=== PATIENT | female | born 1960 | race Caucasian/White ===

== ENCOUNTER → 2016-04-10 | Outpatient (CLI) | payer OTHER ==
[~2016-04-10] MED LIST: ASPEC81 PO; ASPI81TA28 PO; CALC500C70 PO; CRG25 PO; CRG3125 PO; CZR50 PO; FENO1TAB PO; FERR325T5 PO; FLUO20CA35 PO; HYZ/10015 PO; LOSA50TA55 PO; LPT40 PO; MULT-506 PO; PRT40 PO; SIMV40TA2 PO; VITACAP26 PO
--- NOTE | 2016-04-10 15:32 | MAMMOGRAPHY REPORT ---
BILATERAL DIGITAL SCREENING MAMMOGRAM TOMOSYNTHESIS WITH CAD: 04/10/2016 CLINICAL HISTORY: Routine screening. Patient has no complaints. TECHNIQUE: Breast tomosynthesis in addition to standard 2D mammography was performed. Current study was also evaluated with a Computer Aided Detection (CAD) system. COMPARISON: Comparison is made to exams dated: 04/03/2015 mammogram, 02/03/2013 mammogram, 03/24/2014 m ammogram, 01/28/2012 mammogram, 01/15/2011 mammogram, and 01/09/2010 mammogram - [facility]. BREAST COMPOSITION: There are scattered areas of fibroglandular density in both breasts. FINDINGS: No suspicious masses, calcifications, or areas of architectural distortion are noted in e ither breast. There has been no significant interval change compared to prior exams. Scattered bilat eral benign-appearing calcifications are not significantly changed. IMPRESSION: ACR BI-RADS CATEGORY 2: BENIGN There is no mammographic evidence of malignancy. A 1 year screening mammogram is recommended. The p atient will receive written notification of the results. Approximately 10% of breast cancers are not detected with mammography. A negative mammographic repor t should not delay biopsy if a clinically suggestive mass is present. Brenda Keyes M.D. ah/:04/10/2016 15:11:12 Disaster Or Damage Control Specialist: Akilah GARCES(Yadiel)(), [facility] letter sent: Normal 1/2 BI-RADS Code: ACR BI-RADS Category 2: Benign
== END | disposition home or self-care (01) ==
LOC: C.MAMM 14:43
PROVIDERS: ATTEND Family Medicine
DX: Z12.31 Encounter for screening mammogram for malignant neoplasm of breast (principal)

== ENCOUNTER → 2016-08-04 | Outpatient (CLI) | payer OTHER ==
[~2016-08-04] MED LIST changes: +LOSA50TA36 PO; -LOSA50TA55 PO
[2016-08-04 15:08] LABS: URINE APPEARANCE CLOUDY (CLEAR); URINE BILIRUBIN NEG (NEG); URINE COLOR YELLOW; URINE NITRITE NEG (NEG); UROBILINOGEN NEG (NEG); ZZUR CULT IF INDIC CLEAN CATCH YES
[2016-08-04 15:15] LABS: MANUAL MICROSCOPIC REQUIRED? NO; REVIEW REQ? YES
[2016-08-04 15:28] LABS: URINE PROTIEN/CREAT RATIO 0.1 (0-0.2); URINE TOTAL PROTEIN 12.6 mg/dl (0-11.9)
== END | disposition home or self-care (01) ==
LOC: C.LAB1850 12:14
PROVIDERS: ATTEND Internal Medicine Nephrology
DX: N18.3 Chronic kidney disease, stage 3 (moderate) (principal)

== ENCOUNTER 2016-10-06 11:53 | Inpatient (IN) | payer OTHER ==
[~2016-10-06] VITALS: Ht 157.5 cm; Wt 55.7 kg
[~2016-10-06 11:53] MED LIST changes: -ASPI81TA28 PO; -CRG3125 PO; -FENO1TAB PO; -FERR325T5 PO; -HYZ/10015 PO; -LOSA50TA36 PO; -LPT40 PO
[2016-10-06] MEDS ORDERED: CZR50 PO (12:16)
[2016-10-06] MEDS ORDERED: ASPI81TA28 PO (12:16)
[2016-10-06] MEDS ORDERED: SODIUM CHLORIDE 0.9% 1000ML 1,000 ML IV STA (12:45)
[2016-10-06] MEDS ORDERED: MECLIZINE HCL 25 MG TAB PO STA (12:45)
[2016-10-06] MEDS ORDERED: ONDANSETRON INJ 2 MG/ML 2 ML VIAL IV STA (12:45)
--- NOTE | 2016-10-06 12:48 | EMERGENCY ROOM VISIT NOTE ---
History Report prepared by [place]: Sharath Morris Under the Supervision of: Dr. Manjeet Santoro M.D. First contact with patient: 12:18 Chief Complaint: SHORTNESS OF BREATH Stated Complaint: SOB,PT HAS HAD 2 HEART ATTACKS Nursing Triage Summary: c/o SOB and n/v 2x in the last 24 hrs and c/o confusion no c/o pain pt is alert and oriented x4 History of Present Illness The patient is a 56 year female who presents to the Emergency Room with complaints of persistent dizziness upon standing up that started 2 weeks ago. She was recently admitted here for pneumonia, but is finished with her rounds of antibiotics. The patient states that for the past 2 weeks, she has not been able to "do anything" due to her dizziness and disorientation only upon standing up. She says that she feels fine when she lays down. The patient states that after standing up for a while, the symptoms go away. Per the patient 's , the patient has only been able to walk from her bed to the living room because the patient has to lie down after standing up. The patient adds that she vomited twice in the past 24 hours, but she says this is because she ate pizza which did not agree with her. The patient states that she has no history of dizziness issues. She notes that moving her head currently does not bring the dizziness back. She says that she has been drinking lots of water. She denies any abdominal pain. Source of History: patient, spouse/significant other Onset: 2 weeks ago Position: other (global - dizziness) Quality: other (only upon standing up initially) Timing: other (persistent) Modifying Factors (Worsening): movement Modifying Factors (Relieving): rest Associated Symptoms: No abdominal pain Note: Associated symptoms: Disorientation upon standing up. Review of Systems See HPI for pertinent positives & negatives. A total of 10 systems reviewed and were otherwise negative. Past Medical & Surgical Medical Problems: (1) Dehydration (2) HTN (hypertension) (3) Orthostasis (4) Rigors Surgical Problems: (1) Stented coronary artery Family History Diabetes mellitus FHx: cancer Hypertension Social History Smoking Status: Never Smoker Alcohol Use: occasionally Drug Use: none Marital Status: Current/Historical Medications Scheduled Aspirin (Aspirin Ec), 81 MG PO DAILY Atorvastatin (Atorvastatin Calcium), 40 MG PO DAILY Calcium/Vitamin D ([place] 500 Plus D), 1 TAB PO DAILY Carvedilol (Carvedilol), 25 MG PO BID Fenofibrate (Tricor), 1 TAB PO DAILY Ferrous Sulfate (Ferrous Sulfate), 325 MG PO TIDM Hctz/Losartan (Hyzaar 25MG/100MG), 1 TAB PO DAILY Multivitamin (Multivitamin), 1 TAB PO DAILY Pantoprazole (Pantoprazole Sodium), 40 MG PO BID Vitamins C & E (Vitamin C), 1 CAP PO DAILY Allergies Coded Allergies: No Known Allergies (Verified , NONE, 04/26/13) Physical Exam Vital Signs Date Time Temp Pulse Resp B/P (MAP) Pulse Ox O2 Delivery O2 Flow Rate FiO2 10/06/16 14:53 85 20 115/67 100 Room Air 10/06/16 13:28 65 20 126/43 100 Room Air 10/06/16 12:57 71 20 102/42 99 Room Air 69 93/41 77 71/39 10/06/16 12:50 99 Room Air 10/06/16 12:25 73 10/06/16 12:24 99 Room Air 10/06/16 12:20 99 Room Air 10/06/16 11:56 36.5 102 22 102/54 100 Room Air Physical Exam GENERAL: Patient is a healthy-appearing well-nourished 56 year old female. HEAD: Normocephalic atraumatic EYES: Ocular movements intact pupils equal and react to light OROPHARYNX mucous membranes are moist no exudates present no erythema or edema present NECK: Supple no nuchal rigidity CHEST: Good equal expansion LUNGS: Clear and equal to auscultation CARDIAC: Normal S1 and S2 ABDOMEN: Soft nontender no guarding BACK: No CVA tenderness EXTREMITIES: No pain upon palpation normal muscle strength in all groups no clubbing cyanosis or edema NEURO: Patient is following commands and answering questions appropriately. Alert and oriented x3 Cranial Nerves 2-12 grossly intact Medical Decision & Procedures ER Provider Diagnostic Interpretation: Radiology results as stated below per my review and radiologist interpretation: CT OF THE HEAD WITHOUT CONTRAST CLINICAL HISTORY: Dizziness. COMPARISON STUDY: No previous studies for comparison. CT DOSE: 460.70 mGy.cm TECHNIQUE: Helical axial images of the head were obtained without IV contrast. Automated exposure control was utilized for the study. A dose lowering technique was utilized adhering to the principles of ALARA. FINDINGS: No acute intracranial hemorrhage, midline shift or mass effect is present. Ventricular system is normal. Basilar cisterns are patent. There are no extra-axial collections. Zamorano-white differentiation is maintained. There are no CT findings to suggest acute dural sinus thrombosis or acute territorial infarct. There are no significant calvarial abnormalities. Visualized portions of the sinuses and left mastoid air cells are clear. There may be a small amount of fluid within the right mastoid air cells. IMPRESSION: No acute intracranial findings. Electronically signed by: Omid Ellsion M.D. 10/06/2016 1:50 PM Dictated Date/Time: 10/06/2016 1:47 PM CHEST ONE VIEW PORTABLE HISTORY: Pt c/o dizziness COMPARISON: Chest 10/11/2014. FINDINGS: The lungs are clear. Cardiac silhouette is normal in size. No pleural effusions. No pneumothorax. IMPRESSION: No acute process. Electronically signed by: Albert Eubanks M.D. 10/06/2016 1:36 PM Dictated Date/Time: 10/06/2016 1:29 PM Laboratory Results 10/06/16 13:09 Red Blood Count 2.84, Mean Corpuscular Volume 100.7, Mean Corpuscular Hemoglobin 35.2, Mean Corpuscular Hemoglobin Concent 35.0, Mean Platelet Volume 9.1, Neutrophils (%) (Auto) 66.2, Lymphocytes (%) (Auto) 26.5, Monocytes (%) ( Auto) 6.2, Eosinophils (%) (Auto) 0.6, Basophils (%) (Auto) 0.1, Neutrophils # ( Auto) 7.53, Lymphocytes # (Auto) 3.02, Monocytes # (Auto) 0.71, Eosinophils # ( Auto) 0.07, Basophils # (Auto) 0.01 10/06/16 13:09 Test 10/06/16 12:55 10/06/16 13:09 10/06/16 13:21 10/06/16 14:09 Bedside Glucose 122 mg/dl (70-90) White Blood Count 11.38 K/uL (4.8-10.8) Red Blood Count 2.84 M/uL (4.2-5.4) Hemoglobin 10.0 g/dL (12.0-16.0) Hematocrit 28.6 % (37-47) Mean Corpuscular Volume 100.7 fL (80-100) Mean Corpuscular Hemoglobin 35.2 pg (25-34) Mean Corpuscular Hemoglobin Concent 35.0 g/dl (32-36) Platelet Count 373 K/uL (130-400) Mean Platelet Volume 9.1 fL (7.4-10.4) Neutrophils (%) (Auto) 66.2 % Lymphocytes (%) (Auto) 26.5 % Monocytes (%) (Auto) 6.2 % Eosinophils (%) (Auto) 0.6 % Basophils (%) (Auto) 0.1 % Neutrophils # (Auto) 7.53 K/uL (1.4-6.5) Lymphocytes # (Auto) 3.02 K/uL (1.2-3.4) Monocytes # (Auto) 0.71 K/uL (0.11-0.59) Eosinophils # (Auto) 0.07 K/uL (0-0.5) Basophils # (Auto) 0.01 K/uL (0-0.2) RDW Standard Deviation 43.6 fL (36.4-46.3) RDW Coefficient of Variation 11.9 % (11.5-14.5) Immature Granulocyte % (Auto) 0.4 % Immature Granulocyte # (Auto) 0.04 K/uL (0.00-0.02) Anion Gap 11.0 mmol/L (3-11) Est Creatinine Clear Calc Drug Dose 20.5 ml/min Estimated GFR () 25.1 Estimated GFR (Non- 21.7 BUN/Creatinine Ratio 22.2 (10-20) Calcium Level 9.1 mg/dl (8.5-10.1) Total Bilirubin 0.5 mg/dl (0.2-1) Direct Bilirubin 0.2 mg/dl (0-0.2) Aspartate Amino Transf (AST/SGOT) 30 U/L (15-37) Alanine Aminotransferase (ALT/SGPT) 29 U/L (12-78) Alkaline Phosphatase 49 U/L (45-117) Total Creatine Kinase 105 U/L (26-192) Creatine Kinase MB 2.2 ng/ml (0.5-3.6) Creatine Kinase MB Ratio 2.1 (0-3.0) Troponin I 0.027 ng/ml (0-0.045) Total Protein 6.3 gm/dl (6.4-8.2) Albumin 3.2 gm/dl (3.4-5.0) Thyroid Stimulating Hormone (TSH) 0.877 uIu/ml (0.300-4.500) Urine WBC (Auto) >30 /hpf (0-5) Urine RBC (Auto) 0-4 /hpf (0-4) Urine Hyaline Casts (Auto) 1-5 /lpf (0-5) Urine Epithelial Cells (Auto) >30 /lpf (0-5) Urine Bacteria (Auto) 4+ (NEG) Labs reviewed by ED physician. Medications Administered Medications (Trade) Dose Ordered Sig/Denise Route Start Time Stop Time Status Last Admin Dose Admin Sodium Chloride 1,000 ml @ 999 mls/hr Q1H1M STAT IV 10/06/16 12:45 10/06/16 13:45 DC 10/06/16 13:15 999 MLS/HR Ondansetron HCl (Zofran Inj) 4 mg NOW STAT IV 10/06/16 12:45 10/06/16 12:48 DC 10/06/16 13:18 4 MG Meclizine HCl (Antivert Tab) 25 mg NOW STAT PO 10/06/16 12:45 10/06/16 12:48 DC 10/06/16 13:18 25 MG Potassium Chloride (Klor-Con M10) 80 meq NOW STAT PO 10/06/16 13:58 10/06/16 14:00 DC 10/06/16 14:07 8 MEQ Sodium Chloride 500 ml @ 999 mls/hr Q31M STAT IV 10/06/16 13:58 10/06/16 14:28 DC 10/06/16 14:08 999 MLS/HR Ceftriaxone Sodium (Rocephin Inj) 1 gm NOW STAT IV 10/06/16 14:09 10/06/16 14:10 DC 10/06/16 14:25 1 GM Sodium Chloride 150 ml @ 999 mls/hr Q10M STAT IV 10/06/16 14:18 10/06/16 14:27 DC 10/06/16 14:18 999 MLS/HR ECG Indication: other (dizzy) Rate (beats per minute): 67 Rhythm: normal sinus Findings: no acute ischemic change, no ectopy ED Course 1241: Past medical records reviewed. The patient was evaluated in room C6. A complete history and physical examination was performed. 1245: Ordered Antivert Tab 25 mg PO, Zofran Inj 4 mg IV, NSS 1000 ml @ 999 mls/ hr IV. 1358: Ordered NSS 500 ml @ 999 mls/hr IV, Klor-Con M10 80 meq PO. 1409: Ordered Rocephin Inj 1 gm IV. 1417: Upon reexamination the patient is resting comfortably. I discussed results and treatment plan with the patient. she verbalizes agreement and understanding. The patient will be evaluated for further management. 1418: Ordered NSS 150 ml @ 999 mls/hr IV. 1420: I discussed the patient with Dr. Jocelynn DUENAS haul truck driver - he will evaluate the patient for further treatment. Medical Decision Differential diagnosis: Etiologies such as benign positional vertigo, dehydration, hypovolemia, anemia, tumor, infection, hypoglycemia, electrolyte abnormalities, cardiac sources, intracerebral event, toxicologic, neurologic, as well as others were entertained. This is a 56-year-old feel who presents emergency department hypotensive and tachycardic. The patient also has an elevation in her white blood count cell count and her creatinine is also grossly elevated. Based on this finding the patient was given a normal saline bolus 30 mL's per kilogram. She was also started on Rocephin for what appears to be urinary tract infection. I did discuss the case with the hospitalist service who agreed to admit the patient. Patient was in agreement with the treatment plan. Medication Reconcilliation Current Medication List: was personally reviewed by me Blood Pressure Screening Patient's blood pressure: Low blood pressure Referred to hospitalist. Consults Time Called: 1418 Consulting Physician: Dr.Siuta Radha DUENAS haul truck driver Returned Call: 1420 I discussed the patient with Dr. Jocelynn DUENAS haul truck driver - he will evaluate the patient for further treatment. Impression Primary Impression: Hypotension Additional Impressions: UTI (urinary tract infection) Sepsis Scribe Attestation The scribe's documentation has been prepared under my direction and personally reviewed by me in its entirety. I confirm that the note above accurately reflects all work, treatment, procedures, and medical decision making performed by me. Departure Information Dispostion Being Evaluated By Hospitalist Referrals Luciano Marx M.D. (PCP) Patient Instructions My [facility] Problem Qualifiers Primary Impression: Hypotension Hypotension type: unspecified hypotension type Qualified Codes: I95.9 - Hypotension, unspecified Additional Impressions: UTI (urinary tract infection) Urinary tract infection type: acute cystitis Hematuria presence: without hematuria Qualified Codes: N30.00 - Acute cystitis without hematuria Sepsis Sepsis type: sepsis due to unspecified organism Qualified Codes: A41.9 - Sepsis, unspecified organism
[2016-10-06 13:27] LABS: BASO % 0.1 %; BASO ABS # 0.01 K/uL (0-0.2); COMPLETE YES; EOS % 0.6 %; HEMATOCRIT 28.6 % (37-47); IG% 0.4 %; LYMPH % 26.5 %; LYMPH ABS # 3.02 K/uL (1.2-3.4); MEAN CELL VOLUME 100.7 fL (80-100); MEAN CORPUSCULAR HEMOGLOBIN 35.2 pg (25-34); MEAN PLATELET VOLUME 9.1 fL (7.4-10.4); MONO % 6.2 %; NEUT % 66.2 %; PLATELET COUNT 373 K/uL (130-400); RED BLOOD COUNT 2.84 M/uL (4.2-5.4); WHITE BLOOD COUNT 11.38 K/uL (4.8-10.8)
--- NOTE | 2016-10-06 13:37 | DIAGNOSTIC IMAGING REPORT ---
CHEST ONE VIEW PORTABLE HISTORY: Pt c/o dizziness COMPARISON: Chest 10/11/2014. FINDINGS: The lungs are clear. Cardiac silhouette is normal in size. No pleural effusions. No pneumothorax. IMPRESSION: No acute process. Electronically signed by: Albert Eubanks M.D. 10/06/2016 1:36 PM Dictated Date/Time: 10/06/2016 1:29 PM
[2016-10-06 13:45] LABS: BUN/CREATININE RATIO 22.2 (10-20); CALCIUM 9.1 mg/dl (8.5-10.1); CREATININE 2.4 mg/dl (0.60-1.20)
[2016-10-06 13:47] LABS: URINE APPEARANCE CLOUDY (CLEAR); URINE BILIRUBIN NEG (NEG); URINE COLOR DK YELLOW; URINE EPITHELIAL CELL AUTO >30 /lpf (0-5); URINE NITRITE NEG (NEG); UROBILINOGEN NEG (NEG)
--- NOTE | 2016-10-06 13:51 | DIAGNOSTIC IMAGING REPORT ---
CT OF THE HEAD WITHOUT CONTRAST CLINICAL HISTORY: Dizziness. COMPARISON STUDY: No previous studies for comparison. CT DOSE: 460.70 mGy.cm TECHNIQUE: Helical axial images of the head were obtained without IV contrast. Automated exposure control was utilized for the study. A dose lowering technique was utilized adhering to the principles of ALARA. FINDINGS: No acute intracranial hemorrhage, midline shift or mass effect is present. Ventricular system is normal. Basilar cisterns are patent. There are no extra-axial collections. Zamorano-white differentiation is maintained. There are no CT findings to suggest acute dural sinus thrombosis or acute territorial infarct. There are no significant calvarial abnormalities. Visualized portions of the sinuses and left mastoid air cells are clear. There may be a small amount of fluid within the right mastoid air cells. IMPRESSION: No acute intracranial findings. Electronically signed by: Omid Ellison M.D. 10/06/2016 1:50 PM Dictated Date/Time: 10/06/2016 1:47 PM
[2016-10-06 13:56] LABS: CKMB/CK RATIO 2.1 (0-3.0); THYROID STIMULATING HORMONE 0.877 uIu/ml (0.300-4.500)
[2016-10-06] MEDS ORDERED: SODIUM CHLORIDE 0.9% 500ML 500 ML IV STA (13:58)
[2016-10-06] MEDS ORDERED: POTASSIUM CHLORIDE 10 MEQ TABCR PO STA (13:58)
[2016-10-06 14:02] LABS: MANUAL MICROSCOPIC REQUIRED? NO; REVIEW REQ? NO
[2016-10-06] MEDS ORDERED: CEFTRIAXONE SOD INJ 1 GM ADDVIAL IV STA (14:09)
[2016-10-06] MEDS ORDERED: SODIUM CHLORIDE 0.9% 150ML 150 ML IV STA (14:18)
[2016-10-06] MEDS ORDERED: LPT40 PO (15:05)
[2016-10-06] MEDS ORDERED: FERR325T5 PO (15:05)
[2016-10-06] MEDS ORDERED: FENO1TAB PO (15:05)
[2016-10-06] MEDS ORDERED: HYZ/10015 PO (15:05)
[2016-10-06] MEDS ORDERED: ALUMINUM/MAGNESIUM/SIMETH (MAALOX MAX) 30 ML UDC PO PRN (15:15)
[2016-10-06] MEDS ORDERED: ACETAMINOPHEN 325 MG TAB PO PRN (15:15)
[2016-10-06] MEDS ORDERED: MAGNESIUM HYDROXIDE SUSP 30 ML UDC PO PRN (15:15)
[2016-10-06] MEDS ORDERED: POLYETHYLENE (MIRALAX) 17 GM PACK PO PRN (15:15)
[2016-10-06] MEDS ORDERED: ONDANSETRON INJ 2 MG/ML 2 ML VIAL IV PRN (15:15)
[2016-10-06] MEDS ORDERED: IV FLUIDS COMPLETED PRN (16:00)
--- NOTE | 2016-10-06 17:22 | History and Physical ---
History & Physical Date & Time of Service: Oct 06, 2016 at 16:58 Chief Complaint: Sob,Pt Has Had 2 Heart Attacks Primary Care Physician: Luciano Marx M.D. History of Present Illness Source: patient, spouse ( at bedside), clinic records, hospital records This is a 56 y/o female with a history of CAD with h/o WV x 3 s/p stents, HTN, HLD, CKD stage III, anemia of chronic disease, depression, IBS and OCD who presented to the ED on 10/06 with persistent dizziness with standing x 2 weeks. The patient states that her symptoms resolve if she remains standing, or if she sits back down. She denies any changes in head position that bring on symptoms. She states that she does have some associated shortness of breath with the dizziness, which also resolves upon sitting back down. The patient did have 2 episodes of nausea and vomiting about 2-3 days ago, but she states that this was due to eating some food that did not agree with her. She felt better immediately afterward and this has not happened again since. The patient denies fevers or chills at home, but complains of chills in the ED. She denies any urinary symptoms. The patient denies any recent changes in her medications. The patient denies fevers, sweats, chest pain, palpitations, claudication, cough, wheezing, nausea, vomiting, abdominal pain, dysuria, hematuria, urinary retention, paralysis, weakness, numbness and tingling. Past Medical/Surgical History Medical Problems: (1) HTN (hypertension) Status: Chronic HLD CAD H/o WV x 3, s/p stents CKD stage III Anemia Depression IBS OCD Family History Diabetes mellitus FHx: cancer (breast) Hypertension Social History Smoking Status: Never Smoker Smokeless Tobacco Use: No Alcohol Use: none Drug Use: none Marital Status: Housing status: lives with significant other Occupational Status: retired Immunizations History of Influenza Vaccine: No History of Tetanus Vaccine?: Yes History of Pneumococcal: No History of Hepatitis B Vaccine: No Multi-Drug Resistant Organisms History of MDRO: No Allergies Coded Allergies: No Known Allergies (Verified , NONE, 04/26/13) Home Medications Scheduled Aspirin (Aspirin Ec), 81 MG PO DAILY Atorvastatin (Atorvastatin Calcium), 40 MG PO DAILY Calcium/Vitamin D ([place] 500 Plus D), 1 TAB PO DAILY Carvedilol (Carvedilol), 25 MG PO BID Fenofibrate (Tricor), 1 TAB PO DAILY Ferrous Sulfate (Ferrous Sulfate), 325 MG PO TIDM Hctz/Losartan (Hyzaar 25MG/100MG), 1 TAB PO DAILY Multivitamin (Multivitamin), 1 TAB PO DAILY Pantoprazole (Pantoprazole Sodium), 40 MG PO BID Vitamins C & E (Vitamin C), 1 CAP PO DAILY Review of Systems Constitutional: + chills, No fever, No sweats, No weakness, No fatigue Eyes: No worsening of vision, No eye pain, No diplopia ENT: No hearing loss, No sore throat, No trouble swallowing Respiratory: + shortness of breath, No cough, No wheezing Cardiovascular: No chest pain, No claudication, No palpitations Abdomen: No pain, No nausea, No vomiting Musculoskeletal: No joint pain, No muscle pain, No calf pain Genitourinary - Female: No dysuria, No urinary retention, No hematuria Neurologic: No paralysis, No weakness, No numbness/tingling Integumentary: No rash, No itch, No color change Physical Exam Vital Signs Date Time Temp Pulse Resp B/P (MAP) Pulse Ox O2 Delivery O2 Flow Rate FiO2 10/06/16 14:53 85 20 115/67 100 Room Air 10/06/16 13:28 65 20 126/43 100 Room Air 10/06/16 12:57 71 20 102/42 99 Room Air 69 93/41 77 71/39 10/06/16 12:50 99 Room Air 10/06/16 12:25 73 10/06/16 12:24 99 Room Air 10/06/16 12:20 99 Room Air 10/06/16 11:56 36.5 102 22 102/54 100 Room Air General appearance: +Rigors. Well-developed, well-nourished Head: Normocephalic, atraumatic Eyes: Normal inspection, PERRL, EOMI ENT: Normal ENT inspection, hearing grossly normal, pharynx normal Neck: Supple, no JVD, trachea midline Respiratory/Chest: Lungs clear to auscultation, normal breath sounds, no respiratory distress Cardiovascular: Regular rate & rhythm, no gallop, no murmur Abdomen/GI: Normal bowel sounds, non-tender, soft Extremities/Musculoskeletal: Normal inspection, no calf tenderness, no pedal edema Neurological/Psych: Alert, normal mood/affect, oriented x 3 Skin: Normal color, warm/dry, no rash Diagnostics Laboratory Results Results Past 24 Hours Test 10/06/16 12:55 10/06/16 13:09 10/06/16 13:21 10/06/16 14:09 Range/Units Bedside Glucose 122 70-90 mg/dl White Blood Count 11.38 4.8-10.8 K/uL Red Blood Count 2.84 4.2-5.4 M/uL Hemoglobin 10.0 12.0-16.0 g/dL Hematocrit 28.6 37-47 % Mean Corpuscular Volume 100.7 80-100 fL Mean Corpuscular Hemoglobin 35.2 25-34 pg Mean Corpuscular Hemoglobin Concent 35.0 32-36 g/dl Platelet Count 373 130-400 K/uL Mean Platelet Volume 9.1 7.4-10.4 fL Neutrophils (%) (Auto) 66.2 % Lymphocytes (%) (Auto) 26.5 % Monocytes (%) (Auto) 6.2 % Eosinophils (%) (Auto) 0.6 % Basophils (%) (Auto) 0.1 % Neutrophils # (Auto) 7.53 1.4-6.5 K/uL Lymphocytes # (Auto) 3.02 1.2-3.4 K/uL Monocytes # (Auto) 0.71 0.11-0.59 K/uL Eosinophils # (Auto) 0.07 0-0.5 K/uL Basophils # (Auto) 0.01 0-0.2 K/uL RDW Standard Deviation 43.6 36.4-46.3 fL RDW Coefficient of Variation 11.9 11.5-14.5 % Immature Granulocyte % (Auto) 0.4 % Immature Granulocyte # (Auto) 0.04 0.00-0.02 K/uL Sodium Level 140 136-145 mmol/L Potassium Level 3.0 3.5-5.1 mmol/L Chloride Level 106 98-107 mmol/L Carbon Dioxide Level 23 21-32 mmol/L Anion Gap 11.0 3-11 mmol/L Blood Urea Nitrogen 53 7-18 mg/dl Creatinine 2.40 0.60-1.20 mg/dl Est Creatinine Clear Calc Drug Dose 20.5 ml/min Estimated GFR () 25.1 Estimated GFR (Non- 21.7 BUN/Creatinine Ratio 22.2 10-20 Random Glucose 120 70-99 mg/dl Calcium Level 9.1 8.5-10.1 mg/dl Magnesium Level 2.1 1.8-2.4 mg/dl Total Bilirubin 0.5 0.2-1 mg/dl Direct Bilirubin 0.2 0-0.2 mg/dl Aspartate Amino Transf (AST/SGOT) 30 15-37 U/L Alanine Aminotransferase (ALT/SGPT) 29 12-78 U/L Alkaline Phosphatase 49 45-117 U/L Total Creatine Kinase 105 26-192 U/L Creatine Kinase MB 2.2 0.5-3.6 ng/ml Creatine Kinase MB Ratio 2.1 0-3.0 Troponin I 0.027 0-0.045 ng/ml Total Protein 6.3 6.4-8.2 gm/dl Albumin 3.2 3.4-5.0 gm/dl Thyroid Stimulating Hormone (TSH) 0.877 0.300-4.500 uIu/ml Urine Color DK YELLOW Urine Appearance CLOUDY CLEAR Urine pH 5.0 4.5-7.5 Urine Specific [place] 1.020 1.000-1.030 Urine Protein NEG NEG Urine Glucose (UA) NEG NEG Urine Ketones TRACE NEG Urine Occult Blood TRACE NEG Urine Nitrite NEG NEG Urine Bilirubin NEG NEG Urine Urobilinogen NEG NEG Urine Leukocyte Esterase LARGE NEG Urine WBC (Auto) >30 0-5 /hpf Urine RBC (Auto) 0-4 0-4 /hpf Urine Hyaline Casts (Auto) 1-5 0-5 /lpf Urine Epithelial Cells (Auto) >30 0-5 /lpf Urine Bacteria (Auto) 4+ NEG Microbiology Results 10/06/16 Blood Culture, Received Pending 10/06/16 Blood Culture, Received Pending Diagnostic Radiology Reviewed the following studies and agree with interpretation as follows: Patient Name: DEXTER ABARCA Unit Number: [id number] Dictated: 10/06/161346 Transcribed: 10/06/161346 JA Printed Date/Time: [~ rep prt dt]/[~ rep prt tm] [~ rep ct labl] - [~ rep ct ivnm] [facility] [address] Dictated: 10/06/16 1347 Transcribed: 10/06/16 1347 JA Printed Date/Time: [~ rep prt dt]/[~ rep prt tm] [~ rep ct labl] - [~ rep ct ivnm] Patient: DEXTER ABARCA Address1: [address] [place] [address] Med Rec: [id number] Address2: Acct ID: [id number] [facility] Zip: [place] [address] Date: 1960 Sex: F Room/Bed: Ref Phy: Luciano Marx M.D. SC: ELVIN Att Phy: Report #: [id number] Bibiana Phy: Luciano Marx M.D. Test: HWO Admit Phy: Manager Valuation: LUIS Interpreting Phy: Omid Ellison MD Diagnosis: SOB,PT HAS HAD 2 HEART ATTACKS Ordering Phy: Manjeet Santoro MD Service Date: 10/06/16 Admit Date: 10/06/16 MNE: PWRSCRIBE CONF: DICTATED BY: Omid Ellison MD]] CC: Manjeet Santoro MD Qiu, Juan, M.D. Endcc: [~ rep ct add3]] CT OF THE HEAD WITHOUT CONTRAST CLINICAL HISTORY: Dizziness. COMPARISON STUDY: No previous studies for comparison. CT DOSE: 460.70 mGy.cm TECHNIQUE: Helical axial images of the head were obtained without IV contrast. Automated exposure control was utilized for the study. A dose lowering technique was utilized adhering to the principles of ALARA. FINDINGS: No acute intracranial hemorrhage, midline shift or mass effect is present. Ventricular system is normal. Basilar cisterns are patent. There are no extra-axial collections. Zamorano-white differentiation is maintained. There are no CT findings to suggest acute dural sinus thrombosis or acute territorial infarct. There are no significant calvarial abnormalities. Visualized portions of the sinuses and left mastoid air cells are clear. There may be a small amount of fluid within the right mastoid air cells. IMPRESSION: No acute intracranial findings. Electronically signed by: Omid Ellison M.D. 10/06/2016 1:50 PM Dictated Date/Time: 10/06/2016 1:47 PM The status of this report is Signed. Draft = Not yet reviewed or approved by Radiologist. Signed = Reviewed and approved by Radiologist. <AttendingPhy></AttendingPhy> <FamilyPhy>Luciano Marx M.D.</FamilyPhy> <PrimaryPhy >Luciano Marx M.D.</PrimaryPhy> <UnitNumber>[id number]</UnitNumber> <VisitNumber> [id number]</VisitNumber> <PatientName>ANTHONY ABARCAAIDAGerard Means</PatientName> < DateOfBirth>1960</DateOfBirth> <Location>C.EDC</Location> <ServiceDate>09/15</ServiceDate> <MNE>ESINDI</MNE> <OrderingPhy>Manjeet Santoro MD</ OrderingPhy> <OrderingPhyMNE>f rep ord dr giang</OrderingPhyMNE> <DictatingPhyMNE> f rep dict dr giang</DictatingPhyMNE> <CCListMNE>f rep ct mne</CCListMNE> < AdmittingPhyMNE>f pt admit dr giang</AdmittingPhyMNE> <AttendingPhyMNE>f pt attend dr giang</AttendingPhyMNE> <ConsultingPhyMNE>f pt consult dr giang</ConsultingPhyMNE> <FamilyPhyMNE>f pt fam dr giang</FamilyPhyMNE> <OtherPhyMNE>f pt other dr giang</OtherPhyMNE> < PrimaryPhyMNE>f pt prim care dr giang</PrimaryPhyMNE> <ReferringPhyMNE>f pt referring dr giang</ReferringPhyMNE> Patient Name: DEXTER ABARCA Unit Number: [id number] Dictated: 10/06/161328 Transcribed: 10/06/161328 PAJ Printed Date/Time: [~ rep prt dt]/[~ rep prt tm] [~ rep ct labl] - [~ rep ct ivnm] [facility] [place] [address] Dictated: 10/06/161328 Transcribed: 10/06/161328 PAJ Printed Date/Time: [~ rep prt dt]/[~ rep prt tm] [~ rep ct labl] - [~ rep ct ivnm] Patient: DEXTER ABARCA Address1: [address] [place] [address] [facility] Rec: [id number] Address2: Acct ID: [id number] [facility] Zip: [place] [address] Date: 1960 Sex: F Room/Bed: Ref Phy: Luciano Marx M.D. SC: ELVIN Att Phy: Report #: [id number] Bibiana Phy: Luciano Marx M.D. Test: CXR1P Admit Phy: Manager Valuation: ANDEER Interpreting Phy: Albert Eubanks MD Diagnosis: SOB,PT HAS HAD 2 HEART ATTACKS Ordering Phy: Manjeet Santoro MD Service Date: 10/06/16 Admit Date: 10/06/16 MNE: PWRSCRIBE CONF: DICTATED BY: Albert Eubanks M.D.]] CC: Manjeet Santoro MD Qiu, Juan, M.D. Endcc: [~ rep ct add3]] CHEST ONE VIEW PORTABLE HISTORY: Pt c/o dizziness COMPARISON: Chest 10/11/2014. FINDINGS: The lungs are clear. Cardiac silhouette is normal in size. No pleural effusions. No pneumothorax. IMPRESSION: No acute process. Electronically signed by: Albert Eubanks M.D. 10/06/2016 1:36 PM Dictated Date/Time: 10/06/2016 1:29 PM The status of this report is Signed. Draft = Not yet reviewed or approved by Radiologist. Signed = Reviewed and approved by Radiologist. <AttendingPhy></AttendingPhy> <FamilyPhy>Luciano Marx M.D.</FamilyPhy> <PrimaryPhy >Luciano Marx M.D.</PrimaryPhy> <UnitNumber>[id number]</UnitNumber> <VisitNumber> [id number]</VisitNumber> <PatientName>DEXTER ABARCA</PatientName> < DateOfBirth>1960</DateOfBirth> <Location>CJENNY</Location> <ServiceDate>09/15</ServiceDate> <MNE>ESINDI</MNE> <OrderingPhy>Manjeet Santoro MD</ OrderingPhy> <OrderingPhyMNE>f rep ord dr giang</OrderingPhyMNE> <DictatingPhyMNE> f rep dict dr giang</DictatingPhyMNE> <CCListMNE>f rep ct mne</CCListMNE> < AdmittingPhyMNE>f pt admit dr giang</AdmittingPhyMNE> <AttendingPhyMNE>f pt attend dr giang</AttendingPhyMNE> <ConsultingPhyMNE>f pt consult dr giang</ConsultingPhyMNE> <FamilyPhyMNE>f pt fam dr giang</FamilyPhyMNE> <OtherPhyMNE>f pt other dr giang</OtherPhyMNE> < PrimaryPhyMNE>f pt prim care dr giang</PrimaryPhyMNE> <ReferringPhyMNE>f pt referring dr giang</ReferringPhyMNE> EKG Reviewed EKG and agree with interpretation as follows: 67 bpm, NSR, inverted T waves V1 and V2 Impression Assessment and Plan 56 y/o female with a history of CAD with h/o WV x 3 s/p stents, HTN, HLD, CKD stage III, anemia of chronic disease, depression, IBS and OCD who presented to the ED on 10/06 with persistent dizziness with standing x 2 weeks. Patient was hypotensive and slightly tachycardic on arrival to the ED. Orthostatics are positive. Patient's blood pressure was 102/42 while supine and dropped to 71/ 39 upon standing. Patient received over a 1.5L of NSS boluses, and blood pressure did improve. Head CT and chest x-ray are negative for acute disease. EKG shows NSR and inverted T waves in V1 and V2. Troponin negative. WBC 11.38. Creatinine elevated above baseline at 2.4. Potassium 3.0. Patient was given 80 mEq of potassium chloride in the ED. UA positive for bacteria but also with high epithelial cell count. Patient given one dose of Rocephin empirically in ED. Patient was also given a dose of Antivert. Orthostatic hypotension, dizziness -Admit to telemetry -Hold losartan and hydrochlorothiazide -IVF with NSS + 40 mEq KCl at 150 cc/hr -EKG q am and prn with chest pain URBAN on CKD stage III--baseline creatinine 1.0-1.2 -Creatinine 2.4 on admission -IVF as above -Avoid nephrotoxic agents, continue to monitor ?UTI -Repeat UA pending, culture if indicated -Blood cultures pending Hypokalemia -Potassium 3.0 on admission. Received 80 mEq KCl PO in ED -Magnesium WNL at 2.1 -Continue to monitor CAD, h/o WV x 3, s/p stents, HTN, HLD--stable after IVF -Continue ASA, Coreg 25 mg PO BID, atorvastatin 40 mg PO qd, and fenofibrate 160 mg PO qd -Hold Coreg if SBP less than 100 or HR less than 60 -Losartan/HCTZ held due to orthostasis and URBAN Anemia of chronic disease--stable -Baseline hemoglobin around 10-11 -Hemoglobin 10.0 on admission -Continue ferrous sulfate 325 mg PO TIDM GERD -Continue pantoprazole 40 mg PO BID DVT prophylaxis -Heparin 5000 units SC q8h -LIGIA interiano and KRISs Code Status -Level I, FULL RESUSCITATION STATUS This chart was completed in part utilizing [employer] Speech Voice Recognition software. Attempts were made to minimize the grammatical errors, random word insertions, pronoun errors and incomplete sentences. Any formal questions or concerns about the content, text or information contained within the body of this dictation should be directly addressed to the provider for clarification. Level of Care Telemetry Resuscitation Status FULL RESUSCITATION VTE Prophylaxis VTE Risk Assessment Done? Y/N: Yes Risk Level: Moderate Given or contraindicated: Unfractionated heparin SQ, T.E.D. Stockings, SCD's Note Attending Admission Note & Attestation: Pt seen/examined, chart reviewed, care plan d/w JIM Anglin. I agree w/ the moore components of her admission documentation. 56yo female with h/o CAD, HTN, and ? CKD who presented with several weeks of dizziness. Dizziness occurs with standing. In the ER orthostatics were +. Labs c/w acute kidney injury along with hypokalemia. Her u/a was suggestive of UTI. During my assessment she was having chills and c/o being cold. PMH, PSH, allergies, meds, sochx, famhx, ros - reviewed vitals - positive orthostatics afebrile gen - NAD, having chills, appears dry, a/o x 3 mouth - MM dry heart - RRR, s1, s2 lungs - CTA b/l abd - soft, NT, BS+ ext - cool feet but pulses 2+ b/l; right leg calf is larger than left leg calf skin - mild pallor A/P: 1. dizziness 2nd to orthostatic hypotension - HCTZ could be contributing chronically. I cannot r/o early UTI with sepsis contributing. 2. possible early sepsis 2nd to UTI - blood/urine cx's; continue rocephin. 3. acute kidney injury - 2nd to volume depletion in setting of #1, #2. Hold HCTZ, hold ARB; hold coreg. Hydrate; BMP am. 4. anemia - check Fe studies, b12, folate in am. 5. leg size discrepency - check doppler right leg r/o DVT. 6. low K - replete. Denis Cabezas MD Additional Copies To Luciano Marx M.D.
[2016-10-06 17:37] LABS: ZZUR CULT IF INDIC CLEAN CATCH YES
[2016-10-06 17:48] VITALS: BP_SYST 113; BP_SYST 128; BP_SYST 94; BP_DIAS 55; BP_DIAS 56; PULSE 87; TEMP 36.8; O2SAT 100
[2016-10-06 18:00] VITALS: BP 94/55; PULSE 87; TEMP 36.8; O2SAT 100; Ht 157.5 cm; Wt 55.7 kg
[2016-10-06] MEDS ORDERED: POTASSIUM CHLORIDE INJ 40 MEQ in SODIUM CHLORIDE 0.9% 1000ML 1,000 ML IV SCH (19:00)
[2016-10-06 19:21] LABS: INR 1.1 (0.9-1.1); PROTHROMBIN TIME (PATIENT) 11.7 SECONDS (9.0-12.0)
[2016-10-06 19:22] VITALS: BP 130/57; PULSE 90; TEMP 36.6; O2SAT 100
[2016-10-06] MEDS: PANTOprazole SOD 40 MG TAB PO SCH (19:46)
[2016-10-06] MEDS: FERROUS SULFATE 325 MG TAB PO SCH (19:47)
[2016-10-06] MEDS ORDERED: CARVEDILOL 25 MG TAB PO SCH (21:00)
[2016-10-06] MEDS: HEPARIN SOD 5000 UNIT/0.5 ML CARP SQ SCH (21:21)
--- NOTE | 2016-10-06 22:57 | DIAGNOSTIC IMAGING REPORT ---
RIGHT VENOUS DOPP LOWER EXT UNILAT CLINICAL HISTORY: right leg larger than left leg, hypotension Right pain. Edema. TECHNIQUE: Venous Doppler COMPARISON STUDY: None FINDINGS: Normal study IMPRESSION: Normal study The above report was generated using voice recognition software. It may contain grammatical, syntax or spelling errors. Electronically signed by: Kristopher Hernandez M.D. 10/06/2016 10:56 PM Dictated Date/Time: 10/06/2016 10:55 PM
[2016-10-06] MEDS: SODIUM CHLORIDE 0.9% 1000ML 1,000 ML IV SCH (23:33)
[2016-10-07] VITALS (7 sets, daily range): BP systolic 107–135; BP diastolic 56–69; PULSE 72–90; TEMP 36.5–37; O2SAT 95–100
[2016-10-07] MEDS: HEPARIN SOD 5000 UNIT/0.5 ML CARP SQ SCH ×3 (05:31→20:44)
[2016-10-07] MEDS: SODIUM CHLORIDE 0.9% 1000ML 1,000 ML IV SCH ×3 (05:32→20:48)
[2016-10-07] MEDS: ASPIRIN 81 MG ECTAB PO SCH (07:21)
[2016-10-07] MEDS: ATORVASTATIN 40 MG TAB PO SCH (07:21)
[2016-10-07] MEDS: PANTOprazole SOD 40 MG TAB PO SCH ×2 (07:21→20:44)
[2016-10-07] MEDS: FERROUS SULFATE 325 MG TAB PO SCH ×3 (07:22→17:45)
[2016-10-07] MEDS: CALCIUM 600MG + VIT D 400 IU TAB PO SCH (07:22)
[2016-10-07] MEDS: MULTIVITAMIN TAB PO SCH (07:22)
[2016-10-07 07:29] LABS: HEMATOCRIT 24.6 % (37-47); MEAN CELL VOLUME 102.9 fL (80-100); MEAN CORPUSCULAR HEMOGLOBIN 35.1 pg (25-34); MEAN CORPUSCULAR HGB CONC 34.1 g/dl (32-36); PLATELET COUNT 311 K/uL (130-400); RED BLOOD COUNT 2.39 M/uL (4.2-5.4); WHITE BLOOD COUNT 9.17 K/uL (4.8-10.8)
[2016-10-07 08:00] LABS: BUN/CREATININE RATIO 16.9 (10-20); CALCIUM 8.2 mg/dl (8.5-10.1); MAGNESIUM 1.7 mg/dl (1.8-2.4); POTASSIUM 4.7 mmol/L (3.5-5.1)
[2016-10-07 08:02] LABS: FERRITIN 1253.6 ng/ml (8.0-388.0)
[2016-10-07] MEDS ORDERED: LOSARTAN/HCTZ 50-12.5 EA TAB PO ONE (13:00)
[2016-10-07] MEDS: CEFTRIAXONE SOD INJ 1 GM in DEXTROSE 5% ADD-VANTAGE 50ML 50 ML IV SCH (14:10)
--- NOTE | 2016-10-07 16:45 | Progress Note ---
Subjective Date of Service: Oct 07, 2016. Subjective Pt evaluation today including: conversation w/ patient, physical exam, chart review, lab review, review of studies, review of inpatient medication list Problem List Medical Problems: (1) Hypotension Status: Acute (2) Sepsis Status: Acute (3) UTI (urinary tract infection) Status: Acute Review of Systems Constitutional: No fever, No chills Respiratory: No cough, No sputum, No wheezing, No shortness of breath, No dyspnea on exertion Cardiac: No chest pain, No orthopnea, No PND, No edema, No claudication Abdomen: No pain, No nausea, No vomiting, No diarrhea, No constipation Musculoskeletal: No joint pain, No muscle pain, No swelling, No calf pain Female : No dysuria, No urinary frequency, No hematuria, No incontinence Neurologic: No memory loss, No paralysis, No weakness Psychiatric: No depression symptoms, No anhedonism, No anxiety, No insomnia Endo: No fatigue, No excessive thirst Skin: No rash, No itch Objective Vital Signs Date Time Temp Pulse Resp B/P (MAP) Pulse Ox O2 Delivery O2 Flow Rate FiO2 10/07/16 16:00 Room Air 10/07/16 15:43 90 135/65 (88) 100 123/69 (87) 134/56 (82) 10/07/16 15:31 36.7 86 18 134/68 (90) 100 Room Air 10/07/16 12:00 Room Air 10/07/16 11:45 36.5 72 20 132/63 (86) 97 10/07/16 08:09 37.0 89 16 121/65 (83) 95 10/07/16 08:00 Room Air 10/07/16 04:24 36.7 77 17 115/62 (79) 100 Room Air 116/61 (79) 123/63 (83) 10/07/16 04:00 Room Air 10/07/16 00:00 36.8 84 17 107/60 (76) 100 Room Air 10/06/16 23:59 Room Air 10/06/16 20:00 Room Air 10/06/16 19:22 36.6 90 18 130/57 (81) 100 Room Air 10/06/16 18:00 36.8 87 16 94/55 100 Room Air 10/06/16 17:48 36.8 87 16 113/56 (75) 100 Room Air 128/56 (80) 94/55 (68) 10/06/16 17:35 87 20 109/63 100 Physical Exam General Appearance: WD/WN, no apparent distress Eyes: normal inspection, PERRL, EOMI, sclerae normal Neck: supple, no adenopathy, thyroid normal, no JVD Respiratory/Chest: chest non-tender, lungs clear, normal breath sounds, no respiratory distress Cardiovascular: regular rate, rhythm, no edema, no gallop, no JVD Abdomen: normal bowel sounds, non tender, soft, no organomegaly Neurologic/Psychiatric: no motor/sensory deficits, alert, normal mood/affect, oriented x 3 Laboratory Results Last 24 Hours Test 10/06/16 18:42 10/07/16 07:06 Prothrombin Time 11.7 SECONDS Prothromb Time International Ratio 1.1 White Blood Count 9.17 K/uL Red Blood Count 2.39 M/uL Hemoglobin 8.4 g/dL Hematocrit 24.6 % Mean Corpuscular Volume 102.9 fL Mean Corpuscular Hemoglobin 35.1 pg Mean Corpuscular Hemoglobin Concent 34.1 g/dl RDW Standard Deviation 45.4 fL RDW Coefficient of Variation 12.1 % Platelet Count 311 K/uL Mean Platelet Volume 9.0 fL Sodium Level 144 mmol/L Potassium Level 4.7 mmol/L Chloride Level 118 mmol/L Carbon Dioxide Level 19 mmol/L Anion Gap 7.0 mmol/L Blood Urea Nitrogen 34 mg/dl Creatinine 2.00 mg/dl Est Creatinine Clear Calc Drug Dose 24.6 ml/min Estimated GFR () 31.3 Estimated GFR (Non- 27.0 BUN/Creatinine Ratio 16.9 Random Glucose 121 mg/dl Calcium Level 8.2 mg/dl Magnesium Level 1.7 mg/dl Iron Level 108 mcg/dl Total Iron Binding Capacity 275 mcg/dl Transferrin 214 mg/dl Transferrin % Saturation 36 % Ferritin 1253.6 ng/ml Vitamin B12 Level 680 pg/mL Folate 15.52 ng/mL Hepatitis C Antibody Screen NEG Assessment and Plan 56 y/o female with a history of CAD with h/o [place] x 3 s/p stents, HTN, HLD, CKD stage III, anemia of chronic disease, depression, IBS and OCD who presented to the ED on 10/06 with persistent dizziness with standing x 2 weeks. Patient was hypotensive and slightly tachycardic on arrival to the ED. Orthostatics are positive. Patient's blood pressure was 102/42 while supine and dropped to 71/ 39 upon standing. Patient received over a 1.5L of NSS boluses, and blood pressure did improve. Head CT and chest x-ray are negative for acute disease. EKG shows NSR and inverted T waves in V1 and V2. Troponin negative. WBC 11.38. Creatinine elevated above baseline at 2.4. Potassium 3.0. Patient was given 80 mEq of potassium chloride in the ED. UA positive for bacteria but also with high epithelial cell count. Patient given one dose of Rocephin empirically in ED. Patient was also given a dose of Antivert. Orthostatic hypotension, dizziness -Admit to telemetry - Restart meds at lower doses losartan and coreg and HCTZ at half the dose -EKG q am and prn with chest pain URBAN on CKD stage III--baseline creatinine 1.0-1.2 -Creatinine 2.4 on admission improved to 2.0 -IVF as above ?UTI -Repeat UA pending, culture if indicated -Blood cultures pending Hypokalemia resolved CAD, h/o NV x 3, s/p stents, HTN, HLD--stable after IVF -Continue ASA, atorvastatin 40 mg PO qd, coreg 6.25 mg PO BID and fenofibrate 160 mg PO qd Anemia of chronic disease--stable -Baseline hemoglobin around 10-11 -Hemoglobin 10.0 on admission -Continue ferrous sulfate 325 mg PO TIDM GERD -Continue pantoprazole 40 mg PO BID DVT prophylaxis -Heparin 5000 units SC q8h -LIGIA Alvarado Code Status -Level I, FULL RESUSCITATION STATUS
[2016-10-07] MEDS: CARVEDILOL 3.125 MG TAB PO SCH (20:45)
[2016-10-08] VITALS: BP_SYST 123; BP_SYST 124; BP_SYST 128; BP_DIAS 64; BP_DIAS 66; BP_DIAS 70; PULSE 82; TEMP 36.8; O2SAT 100
[2016-10-08] MEDS: SODIUM CHLORIDE 0.9% 1000ML 1,000 ML IV SCH ×4 (02:13→19:56)
[2016-10-08 03:45] VITALS: BP 111/66; PULSE 17; PULSE 78; TEMP 36.9; O2SAT 100
[2016-10-08] MEDS: HEPARIN SOD 5000 UNIT/0.5 ML CARP SQ SCH ×3 (05:59→21:37)
[2016-10-08 06:24] LABS: HEMATOCRIT 23.7 % (37-47); MEAN CELL VOLUME 104.4 fL (80-100); MEAN CORPUSCULAR HEMOGLOBIN 34.4 pg (25-34); MEAN CORPUSCULAR HGB CONC 32.9 g/dl (32-36); MEAN PLATELET VOLUME 8.6 fL (7.4-10.4); PLATELET COUNT 277 K/uL (130-400); RED BLOOD COUNT 2.27 M/uL (4.2-5.4); WHITE BLOOD COUNT 8.29 K/uL (4.8-10.8)
[2016-10-08 07:00] LABS: BUN/CREATININE RATIO 14.1 (10-20); CALCIUM 8.1 mg/dl (8.5-10.1); CREATININE 1.8 mg/dl (0.60-1.20); MAGNESIUM 1.6 mg/dl (1.8-2.4); POTASSIUM 4.8 mmol/L (3.5-5.1)
[2016-10-08 07:36] VITALS: BP 120/66; PULSE 66; PULSE 96; TEMP 36.8; O2SAT 96
[2016-10-08] MEDS ORDERED: MAGNESIUM SULFATE 1GM / D5W 1 GM in PREMIXED IN D5W 100 ML IV ONE (08:00)
[2016-10-08] MEDS: FERROUS SULFATE 325 MG TAB PO SCH ×3 (08:31→16:46)
[2016-10-08] MEDS: PANTOprazole SOD 40 MG TAB PO SCH ×2 (08:32→19:57)
[2016-10-08] MEDS: LOSARTAN/HCTZ 50-12.5 EA TAB PO SCH (08:32)
[2016-10-08] MEDS: ASPIRIN 81 MG ECTAB PO SCH (08:32)
[2016-10-08] MEDS: CALCIUM 600MG + VIT D 400 IU TAB PO SCH (08:33)
[2016-10-08] MEDS: MULTIVITAMIN TAB PO SCH (08:33)
[2016-10-08] MEDS: ATORVASTATIN 40 MG TAB PO SCH (08:33)
[2016-10-08] MEDS: CARVEDILOL 3.125 MG TAB PO SCH ×2 (08:33→19:57)
--- NOTE | 2016-10-08 11:10 | Progress Note ---
Subjective Date of Service: Oct 08, 2016. Subjective Pt evaluation today including: conversation w/ patient, conversation w/ family , physical exam, chart review, lab review, review of studies, review of inpatient medication list Pt resting comfortably in bed States feeling generally weak Hesitant about going home No further dizziness Denies any other concerns at this time Problem List Medical Problems: (1) Hypotension Status: Acute (2) Sepsis Status: Acute (3) UTI (urinary tract infection) Status: Acute Review of Systems Constitutional: + weakness, + fatigue, No fever, No chills, No sweats, No weight loss ENT: No hearing loss, No unusual epistaxis, No nasal symptoms, No sore throat Respiratory: No cough, No sputum, No wheezing, No shortness of breath, No dyspnea on exertion Cardiac: No chest pain, No orthopnea, No PND, No edema Abdomen: No pain, No nausea, No vomiting, No diarrhea, No constipation Musculoskeletal: No joint pain, No muscle pain, No swelling, No calf pain Female : No dysuria, No urinary frequency, No hematuria, No incontinence Neurologic: No memory loss, No paralysis, No weakness, No numbness/tingling Psychiatric: No depression symptoms, No anhedonism, No anxiety, No insomnia Endo: No fatigue, No excessive thirst Skin: No rash, No itch Objective Vital Signs Date Time Temp Pulse Resp B/P (MAP) Pulse Ox O2 Delivery O2 Flow Rate FiO2 10/08/16 08:00 Room Air 10/08/16 07:36 36.8 66 16 120/66 (84) 96 96 10/08/16 04:00 Room Air 10/08/16 03:45 36.9 78 17 111/66 (81) 100 Room Air 17 10/08/16 00:00 36.8 82 18 123/64 (83) 100 Room Air 82 128/70 (89) 82 124/66 (85) 10/07/16 23:59 Room Air 10/07/16 20:00 Room Air 10/07/16 19:38 36.6 80 16 133/62 (85) 99 Room Air 10/07/16 16:00 Room Air 10/07/16 15:43 90 135/65 (88) 100 123/69 (87) 134/56 (82) 10/07/16 15:31 36.7 86 18 134/68 (90) 100 Room Air 10/07/16 12:00 Room Air 10/07/16 11:45 36.5 72 20 132/63 (86) 97 Physical Exam General Appearance: WD/WN, no apparent distress Neck: supple, no adenopathy, thyroid normal, no JVD Respiratory/Chest: chest non-tender, lungs clear, normal breath sounds, no respiratory distress Cardiovascular: regular rate, rhythm, no edema, no gallop, no JVD Abdomen: normal bowel sounds, non tender, soft, no organomegaly Neurologic/Psychiatric: no motor/sensory deficits, alert, normal mood/affect, oriented x 3 Laboratory Results Last 24 Hours Test 10/08/16 06:15 White Blood Count 8.29 K/uL Red Blood Count 2.27 M/uL Hemoglobin 7.8 g/dL Hematocrit 23.7 % Mean Corpuscular Volume 104.4 fL Mean Corpuscular Hemoglobin 34.4 pg Mean Corpuscular Hemoglobin Concent 32.9 g/dl RDW Standard Deviation 46.0 fL RDW Coefficient of Variation 12.1 % Platelet Count 277 K/uL Mean Platelet Volume 8.6 fL Sodium Level 145 mmol/L Potassium Level 4.8 mmol/L Chloride Level 119 mmol/L Carbon Dioxide Level 20 mmol/L Anion Gap 6.0 mmol/L Blood Urea Nitrogen 25 mg/dl Creatinine 1.80 mg/dl Est Creatinine Clear Calc Drug Dose 27.3 ml/min Estimated GFR () 35.6 Estimated GFR (Non- 30.7 BUN/Creatinine Ratio 14.1 Random Glucose 103 mg/dl Calcium Level 8.1 mg/dl Magnesium Level 1.6 mg/dl Assessment and Plan 56 y/o female with a history of CAD with h/o [place] x 3 s/p stents, HTN, HLD, CKD stage III, anemia of chronic disease, depression, IBS and OCD who presented to the ED on 10/06 with persistent dizziness with standing x 2 weeks. Patient was hypotensive and slightly tachycardic on arrival to the ED. Orthostatics are positive. Patient's blood pressure was 102/42 while supine and dropped to 71/ 39 upon standing. Patient received over a 1.5L of NSS boluses, and blood pressure did improve. Head CT and chest x-ray are negative for acute disease. EKG shows NSR and inverted T waves in V1 and V2. Troponin negative. WBC 11.38. Creatinine elevated above baseline at 2.4. Potassium 3.0. Patient was given 80 mEq of potassium chloride in the ED. UA positive for bacteria but also with high epithelial cell count. Patient given one dose of Rocephin empirically in ED. Patient was also given a dose of Antivert. Orthostatic hypotension, dizziness resolved -Admit to telemetry -Cont meds at lower doses HCTZ/losartan 50/12.5and coreg 6.25 mg PO BID, BP controlled -EKG q am and prn with chest pain URBAN on CKD stage III--baseline creatinine 1.0-1.2 -Creatinine 2.4 on admission improved to 1.8 from 2.0, will cont IVF at this time ?UTI -Repeat UA nonconclusive, no symptoms so will not repeat at this time -Blood cultures NGTD Hypokalemia resolved CAD, h/o [place] x 3, s/p stents, HTN, HLD--stable after IVF -Continue ASA, atorvastatin 40 mg PO qd, coreg 6.25 mg PO BID and fenofibrate 160 mg PO qd Anemia of chronic disease--low today with hg 7s, but likely from hemodilution with IVF, cont to monitor -Baseline hemoglobin around 10-11 -Hemoglobin 10.0 on admission -Continue ferrous sulfate 325 mg PO TIDM GERD -Continue pantoprazole 40 mg PO BID DVT prophylaxis -Heparin 5000 units SC q8h -LIGIA Alvarado Code Status -Level I, FULL RESUSCITATION STATUS
[2016-10-08 11:40] VITALS: BP 108/62; PULSE 81; TEMP 36.7; O2SAT 96
[2016-10-08] MEDS: CEFTRIAXONE SOD INJ 1 GM in DEXTROSE 5% ADD-VANTAGE 50ML 50 ML IV SCH (13:32)
[2016-10-08 16:07] VITALS: BP 109/65; PULSE 76; TEMP 36.5; O2SAT 100
[2016-10-08 19:48] VITALS: BP_SYST 116; BP_SYST 126; BP_DIAS 54; BP_DIAS 62; BP_DIAS 73; PULSE 61; TEMP 36.9; O2SAT 93
[2016-10-09] VITALS (7 sets, daily range): BP systolic 115–139; BP diastolic 51–71; PULSE 76–95; TEMP 36.4–36.8; O2SAT 95–100
[2016-10-09] MEDS: SODIUM CHLORIDE 0.9% 1000ML 1,000 ML IV SCH (02:45)
[2016-10-09] MEDS: HEPARIN SOD 5000 UNIT/0.5 ML CARP SQ SCH (06:21)
[2016-10-09 06:32] LABS: HEMATOCRIT 22.5 % (37-47); MEAN CELL VOLUME 104.7 fL (80-100); MEAN CORPUSCULAR HEMOGLOBIN 34.9 pg (25-34); MEAN CORPUSCULAR HGB CONC 33.3 g/dl (32-36); MEAN PLATELET VOLUME 8.9 fL (7.4-10.4); PLATELET COUNT 254 K/uL (130-400); RED BLOOD COUNT 2.15 M/uL (4.2-5.4); WHITE BLOOD COUNT 9.02 K/uL (4.8-10.8)
[2016-10-09 07:10] LABS: BUN/CREATININE RATIO 13.9 (10-20); CALCIUM 8.1 mg/dl (8.5-10.1); CREATININE 1.5 mg/dl (0.60-1.20); MAGNESIUM 1.4 mg/dl (1.8-2.4); POTASSIUM 4.3 mmol/L (3.5-5.1)
[2016-10-09] MEDS ORDERED: MAGNESIUM SULFATE 1GM / D5W 1 GM in PREMIXED IN D5W 100 ML IV ONE (08:00)
[2016-10-09] MEDS: FERROUS SULFATE 325 MG TAB PO SCH ×2 (08:24→12:52)
[2016-10-09] MEDS: ASPIRIN 81 MG ECTAB PO SCH (08:24)
[2016-10-09] MEDS: CARVEDILOL 3.125 MG TAB PO SCH (08:24)
[2016-10-09] MEDS: PANTOprazole SOD 40 MG TAB PO SCH (08:24)
[2016-10-09] MEDS: ATORVASTATIN 40 MG TAB PO SCH (08:24)
[2016-10-09] MEDS: MULTIVITAMIN TAB PO SCH (08:25)
[2016-10-09] MEDS: LOSARTAN/HCTZ 50-12.5 EA TAB PO SCH (08:25)
[2016-10-09] MEDS: CALCIUM 600MG + VIT D 400 IU TAB PO SCH (08:25)
[2016-10-09] MEDS ORDERED: MAGNESIUM OXIDE 400 MG TAB PO SCH (09:00)
[2016-10-09] MEDS ORDERED: LOSA50TA55 PO (10:47)
[2016-10-09] MEDS ORDERED: CRG3125 PO (10:47)
--- NOTE | 2016-10-09 10:53 | Discharge Instructions ---
Discharge Instructions Date of Service Oct 09, 2016. Admission Reason for Admission: Orthostasis, Rigors Discharge Discharge Diagnosis / Problem: orthostatis, acute kidney injury Discharge Goals Goal(s): Decrease discomfort, Improve function, Increase independence, Improve disease control, Diagnostic testing, Therapeutic intervention Activity Recommendations Activity Limitations: resume your previous activity Exercise/Sports Limitations: none Shower/Bathe: no limitations Patient to be discharged home Please note changes in medications: Coreg 3.125 mg tablet by mouth twice a day HCTZ/losartan 50/12.5 tablet once a day If worsening headache, dizziness, chest pain or shortness of breath please report to ER Follow up with Dr Reyes in 1 week . Current Hospital Diet Patient's current hospital diet: AHA Diet (Heart Healthy) Discharge Diet Recommended Diet: AHA Diet (Heart Healthy) Pending Studies Studies pending at discharge: no Medical Emergencies . Who to Call and When: Medical Emergencies: If at any time you feel your situation is an emergency, please call 911 immediately. . Non-Emergent Contact Non-Emergency issues call your: Primary Care Provider Call Non-Emergent contact if: you have any medication questions . . "Provider Documentation" section prepared by Paulie Dumont. . VTE Core Measure Inpt VTE Proph given/why not?: Unfractionated heparin SQ, T.E.Juhi. Stockings, SCD 's
--- NOTE | 2016-10-09 13:06 | Discharge Summary ---
Discharge Summary Date of Service Oct 09, 2016. Discharge Summary Admission Date: Oct 06, 2016 at 15:30 Discharge Date: Oct 09, 2016 Discharge Disposition: Home Principal Diagnosis: Orthostasis, URBAN Immunizations: Have You Had Influenza Vaccine: No History of Tetanus Vaccine?: Yes History of Pneumococcal: No History of Hepatitis B Vaccine: No Medication Reconciliation New Medications: Carvedilol (Carvedilol) 3.125 Mg Tab 3.125 MG PO BID, #60 TAB Losartan Potassium & Hydrochlo (Losartan Potassium/Hydroc) 1 Tab Tab 1 TAB PO QAM, #30 TAB Continued Medications: Aspirin (Aspirin Ec) 81 Mg Tab 81 MG PO DAILY Atorvastatin (Atorvastatin Calcium) 40 Mg Tab 40 MG PO DAILY Calcium/Vitamin D (Os-Francisco 500 Plus D) Tab 1 TAB PO DAILY, TAB Fenofibrate (Tricor) 160 Mg Tab 1 TAB PO DAILY for 30 Days, #30 TAB 5 Refills Ferrous Sulfate (Ferrous Sulfate) 325 Mg Tab 325 MG PO TIDM Multivitamin (Multivitamin) Tab 1 TAB PO DAILY, TAB Pantoprazole (Pantoprazole Sodium) 40 Mg Tab 40 MG PO BID, #60 TAB 2 Refills Vitamins C & E (Vitamin C) 1 Cap Cap 1 CAP PO DAILY Discontinued Medications: Carvedilol (Carvedilol) 25 Mg Tab 25 MG PO BID, #60 TAB 2 Refills Hctz/Losartan (Hyzaar 25MG/100MG) 1 Ea Tab 1 TAB PO DAILY for 30 Days, #30 TAB 5 Refills Discharge Exam Review of Systems: Constitutional: No fever, No chills, No sweats, No weakness Respiratory: No cough, No sputum, No wheezing, No shortness of breath, No dyspnea on exertion Cardiovascular: No chest pain, No orthopnea, No PND, No edema Abdomen: No pain, No nausea, No vomiting, No diarrhea Musculoskeletal: No joint pain, No muscle pain, No swelling, No calf pain Genitourinary - Female: No dysuria, No urinary frequency, No urinary urgency , No urinary incontinence Neurologic: No memory loss, No paralysis, No weakness, No numbness/tingling Psychiatric: No depression symptoms, No anhedonism, No anxiety, No insomnia Endocrine: No fatigue, No excessive thirst Integumentary: No rash, No itch Hospital Course 56 y/o female with a history of CAD with h/o [place] x 3 s/p stents, HTN, HLD, CKD stage III, anemia of chronic disease, depression, IBS and OCD who presented to the ED on 10/06 with persistent dizziness with standing x 2 weeks. Patient was hypotensive and slightly tachycardic on arrival to the ED. Orthostatics are positive. Patient's blood pressure was 102/42 while supine and dropped to 71/ 39 upon standing. Patient received over a 1.5L of NSS boluses, and blood pressure did improve. Head CT and chest x-ray are negative for acute disease. EKG shows NSR and inverted T waves in V1 and V2. Troponin negative. WBC 11.38. Creatinine elevated above baseline at 2.4. Potassium 3.0. Patient was given 80 mEq of potassium chloride in the ED. UA positive for bacteria but also with high epithelial cell count. Patient given one dose of Rocephin empirically in ED. Patient was also given a dose of Antivert. Orthostatic hypotension, dizziness resolved -Admit to telemetry -Cont meds at lower doses HCTZ/losartan 50/12.5and coreg 6.25 mg PO BID, BP controlled - DC home on same regimen URBAN on CKD stage III--baseline creatinine 1.0-1.2 -Creatinine 2.4 on admission improved to 1.5 -No oliguria, pt stable for discharge ?UTI -Repeat UA nonconclusive, no symptoms so will not repeat at this time -Blood cultures NGTD Hypokalemia resolved CAD, h/o [place] x 3, s/p stents, HTN, HLD--stable after IVF -Continue ASA, atorvastatin 40 mg PO qd, coreg 3.125 mg PO BID and fenofibrate 160 mg PO qd Anemia of chronic disease--low today with hg 7s, but likely from hemodilution with IVF, cont to monitor -Baseline hemoglobin around 10-11 -Hemoglobin 10.0 on admission -Continue ferrous sulfate 325 mg PO TIDM GERD -Continue pantoprazole 40 mg PO BID DVT prophylaxis -Heparin 5000 units SC q8h -LIGIA Alvarado Code Status -Level I, FULL RESUSCITATION STATUS Total Time Spent: Greater than 30 minutes This includes examination of the patient, discharge planning, medication reconciliation, and communication with other providers. Discharge Instructions Please refer to the electronic Patient Visit Report (Discharge Instructions) for additional information. Additional Copies To Luciano Marx M.D.
== END 2016-10-09 13:45 | disposition home or self-care (01) | DRG 312 ==
LOC: C.EDB 11:55 → C.2T 15:30 → ENRESERV 17:07 → C.MED 10-09 09:15
PROVIDERS: ADMIT Internal Medicine; ATTEND Hospitalist
DX: I95.1 Orthostatic hypotension (principal); N17.9 Acute kidney failure, unspecified; N30.00 Acute cystitis without hematuria; I13.10 Hypertensive heart and chronic kidney disease without heart failure, with stage 1 through stage 4 chronic kidney disease, or unspecified chronic kidney disease; E87.6 Hypokalemia; R29.898 Other symptoms and signs involving the musculoskeletal system; N18.3 Chronic kidney disease, stage 3 (moderate); I25.10 Atherosclerotic heart disease of native coronary artery without angina pectoris; I25.2 Old myocardial infarction; K21.9 Gastro-esophageal reflux disease without esophagitis; D64.9 Anemia, unspecified; Z51.81 Encounter for therapeutic drug level monitoring; Z79.899 Other long term (current) drug therapy; Z79.82 Long term (current) use of aspirin; Z87.01 Personal history of pneumonia (recurrent); Z95.5 Presence of coronary angioplasty implant and graft; Z83.3 Family history of diabetes mellitus; Z82.49 Family history of ischemic heart disease and other diseases of the circulatory system; Z85.3 Personal history of malignant neoplasm of breast

== ENCOUNTER → 2017-05-05 | Outpatient (CLI) | payer OTHER ==
[~2017-05-05] MED LIST changes: -ASPEC81 PO; +ASPI81TA28 PO; -CRG25 PO; +CRG3125 PO; -CZR50 PO; +FENO1TAB PO; +FERR325T5 PO; -FLUO20CA35 PO; +LOSA50TA36 PO; +LPT40 PO; -SIMV40TA2 PO
--- NOTE | 2017-05-07 08:01 | MAMMOGRAPHY REPORT ---
BILATERAL DIGITAL SCREENING MAMMOGRAM TOMOSYNTHESIS WITH CAD: 05/05/2017 CLINICAL HISTORY: Routine screening. Patient has no complaints. TECHNIQUE: Breast tomosynthesis in addition to standard 2D mammography was performed. Current study was also evaluated with a Computer Aided Detection (CAD) system. COMPARISON: Comparison is made to exams dated: 04/10/2016 mammogram, 04/03/2015 mammogram, 02/03/2013 [facility] mogram, 01/28/2012 mammogram, 01/15/2011 mammogram, and 11/18/2007 mammogram - [facility]. BREAST COMPOSITION: There are scattered areas of fibroglandular density in both breasts. FINDINGS: There are scattered benign rim calcifications in the breasts. The glandular pattern is sim ilar to prior mammograms. No new suspicious mass, architectural distortion or cluster of microcalcif ications is seen. IMPRESSION: ACR BI-RADS CATEGORY 1: NEGATIVE There is no mammographic evidence of malignancy. A 1 year screening mammogram is recommended. The pa tient will receive written notification of the results. Approximately 10% of breast cancers are not detected with mammography. A negative mammographic report should not delay biopsy if a clinically suggestive mass is present. Jennifer Marcial M.D. ay/:05/05/2017 17:03:52 Drivers License Examiner: Hattie ROSARIO)(Jason), [facility] letter sent: Normal 1/2 BI-RADS Code: ACR BI-RADS Category 1: Negative
== END | disposition home or self-care (01) ==
LOC: C.MAMM 14:06
PROVIDERS: ATTEND Family Medicine
DX: Z12.31 Encounter for screening mammogram for malignant neoplasm of breast (principal)

== ENCOUNTER → 2017-10-16 | Outpatient (CLI) | payer OTHER ==
[~2017-10-16] MED LIST changes: +PANT1TAB4 PO; -PRT40 PO
== END | disposition home or self-care (01) ==
LOC: C.RDSM 08:58
PROVIDERS: ATTEND Family Medicine Sports Medicine
DX: M54.5 Low back pain (principal)

== ENCOUNTER 2021-10-02 21:09 | Inpatient (IN) ==
[2021-10-02] MEDS ORDERED: SODIUM CHLORIDE 0.9% 1000ML 1,000 ML IV ONE (21:40)
[2021-10-02 22:02] LABS: Basophils # (auto) 0.01 K/uL (0-0.2); Basophils % (auto) 0.1 %; Hematocrit (blood only) 33.2 % (34.1-44.9); Hemoglobin 11.4 g/dl (12.0-16.0); Immature Granulocytes # (auto) 0.03 K/uL (0.00-0.02); Immature Granulocytes % (auto) 0.2 %; Lymphocytes # (auto) 2.59 K/uL (1.2-3.4); Lymphocytes % (auto) 21.4 %; Mean Corpuscular Hemoglobin 33.1 pg (25.0-34.0); Mean Corpuscular Hgb Conc 34.3 g/dL (32.0-36.0); Mean Corpuscular Volume 96.5 fL (80.0-100.0); Monocytes # (auto) 1.08 K/uL (0.24-0.82); Monocytes % (auto) 8.9 %; Neutrophils # (auto) 8.38 K/uL (1.4-6.5); Neutrophils % (auto) 69.4 %; Platelet Count 167 K/uL (130-400); RDW Coefficient of Variation 14.9 % (11.5-14.5); RDW Standard Deviation 52.1 fL (36.4-46.3); Red Blood Count 3.44 M/uL (3.93-5.22); White Blood Count 12.09 K/ul (4.8-10.8)
[2021-10-02 22:24] LABS: INR 1.2 (0.9-1.1); Partial Thromboplastin Time 26.4 Seconds (21.0-31.0); Prothrombin Time 12.9 Seconds (9.0-12.0)
[2021-10-02 22:34] LABS: Albumin Globulin Ratio 1.6 (0.9-2); Albumin Level 3.6 gm/dl (3.4-5.0); BUN Creatinine Ratio 34.6 (10-20); Bilirubin,Total 0.5 mg/dl (0.2-1.0); Calcium 8.3 mg/dl (8.5-10.1); Creatinine Clr Calc Pharmacy 42.9 ml/min; Est GFR (African American) 66.7 ml/min; Est GFR (Non-African American) 57.5 ml/min; Globulin 2.2 gm/dl (2.5-4.0); Magnesium 1.3 mg/dl (1.7-2.4); Potassium 3.4 mmol/L (3.5-5.1); Total Protein 5.8 gm/dl (6.0-8.3)
[2021-10-02 22:35] LABS: Influenza A virus by PCR Negative (Neg); Influenza B virus by PCR Negative (Neg); RSV by PCR Negative (Neg)
[2021-10-02 22:35] LABS: Troponin I High Sensitivity 111.5 pg/ml (0-14)
[2021-10-02] MEDS ORDERED: CEFEPIME 2,000 MG/20 ML VIAL IV STA (22:45)
[2021-10-02 23:10] LABS: SARS CoV2 RNA(COVID-19) InHosp POSITIVE (Negative)
[2021-10-03] LABS: Appearance Urine Clear (Clear); Bacteria Urine Automated Negative (Negative); Bilirubin Urine Negative (Negative); Blood Urine Negative (Negative); Cast Urine Automated 0 /lpf (0-5); Color Urine Yellow; Glucose Urine UA Negative (Negative); Ketones Urine Negative (Negative); Leukocyte Esterase Urine Negative (Negative); Nitrite Urine Negative (Negative); Protein Urine 1+ (Negative); RBC Urine Automated 0-4 /hpf (0-4); Specific Gravity Urine 1.008 (1.000-1.030); Urobilinogen Urine Negative (Negative)
[2021-10-03] MEDS ORDERED: POTASSIUM CHLORIDE 20 MEQ/15 ML UDC PO STA (00:28)
[2021-10-03] MEDS ORDERED: carvediloL 3.125 MG TAB PO ONE (00:29)
--- NOTE | 2021-10-03 01:13 | Emergency Department Note ---
History of Present Illness General Chief complaint: Illness Stated complaint: illness Time Seen by Provider: 10/02/21 21:32 Source: patient Mode of arrival: EMS Limitations: altered mental status History of Present Illness This patient comes in by EMS after apparently being more confused. She was recently treated for UTI. She is assisted living. She seems to answer questions appropriately however very inconsistently. She knows where she is and her name but does not know the date. She denies any complaints to me specifically . denies chest pain or shortness of breath or cough or abdominal pain. She did tell the nurse prior to talking to me that she felt tired and weak all over she is had no focal numbness weakness no fall or trauma denies dysuria hematuria. No headache neck pain or stiffness. No rash. Home Medications Medication Instructions Recorded Confirmed Type aspirin 81 mg tablet 81 mg PO DAILY 11/23/18 02/13/21 History atorvastatin 40 mg tablet 40 mg PO DAILY #30 tabs 11/23/18 02/13/21 History carvedilol 3.125 mg tablet (Coreg) 3.125 mg PO BID 02/22/20 02/13/21 History ergocalciferol (vitamin D2) 1,250 1,250 mcg PO .weekly #12 caps 02/22/20 02/13/21 Rx mcg (50,000 unit) capsule lisinopril 30 mg tablet 30 mg PO DAILY 02/22/20 02/13/21 History multivitamin (Daily-Damien) 1 tab PO DAILY 02/22/20 02/13/21 History vitamin B complex-vitamin C-folic 1 tab PO DAILY #30 tabs 02/28/20 02/13/21 Rx acid 0.8 mg tablet (Nephro-Damien) Allergies Allergy/AdvReac Type Severity Reaction Status Date / Time No Known Allergies Allergy NONE Verified 02/13/21 08:53 Past Med/Surg History Medical History Heart disease Hypertension Malignant hypertension Unstable angina Surgical History Stented coronary artery Family History Other Medical history non-contributory Social History Smoking Status: Never smoker Hx Alcohol Use: No Hx Substance Use: No Preferred Language: Nepali Communication Ability: Effective Boring Machine Feeder Required: No Beliefs That Will Affect Care: None Current Living Situation: Spouse Feels Safe at Home: Yes Assistive Devices: None Review of Systems A total of 10 systems reviewed and were otherwise negative Physical Exam Vital Signs Vital Signs - 24 hr 10/02/21 21:33 10/02/21 21:45 10/02/21 21:45 Temperature 37.2 C Temperature Source Oral Pulse Rate 108 H 108 H Pulse Rate [Left Radial] Respiratory Rate 20 20 Respiratory Effort / Characteristics Non-Labored Non-Labored Respiratory Depth Normal Respiratory Pattern Regular Blood Pressure 149/99 H Blood Pressure [Left Arm] Blood Pressure Mean 115 Blood Pressure Mean [Left Arm] Blood Pressure Position Lying Blood Pressure Position [Left Arm] Pulse Oximetry 96 96 97 Oxygen Delivery Method Room Air Room Air Room Air Sepsis Recent Fever Within 48 Hours No Sepsis New/Unexplained Change in Mental Status Yes Sepsis Action Taken by Nursing Physician Notified 10/02/21 21:39 10/02/21 22:24 10/02/21 23:00 Temperature Temperature Source Pulse Rate Pulse Rate [Left Radial] Respiratory Rate 20 20 20 Respiratory Effort / Characteristics Non-Labored Non-Labored Respiratory Depth Normal Normal Normal Respiratory Pattern Blood Pressure Blood Pressure [Left Arm] Blood Pressure Mean Blood Pressure Mean [Left Arm] Blood Pressure Position Blood Pressure Position [Left Arm] Pulse Oximetry 97 96 Oxygen Delivery Method Room Air Room Air Sepsis Recent Fever Within 48 Hours Sepsis New/Unexplained Change in Mental Status Sepsis Action Taken by Nursing 10/02/21 23:39 10/02/21 23:30 Temperature Temperature Source Pulse Rate Pulse Rate [Left Radial] 79 Respiratory Rate 20 Respiratory Effort / Characteristics Non-Labored Non-Labored Respiratory Depth Normal Respiratory Pattern Blood Pressure Blood Pressure [Left Arm] 179/87 H Blood Pressure Mean Blood Pressure Mean [Left Arm] 117 Blood Pressure Position Blood Pressure Position [Left Arm] Lying Pulse Oximetry 97 97 Oxygen Delivery Method Room Air Room Air Sepsis Recent Fever Within 48 Hours Sepsis New/Unexplained Change in Mental Status Sepsis Action Taken by Nursing General: Well developed well nourished middle-aged female who is awake and alert answers most questions appropriately but vaguely and inconsistently. In no acute distress, breathing comfortably on room air. Normal speech, nonslurred. He is alert to person and place but not date HEENT: Normal cephalic atraumatic. Pupils are equal round and reactive to light. Extraocular movements are intact with the exception of baseline disconjugate gaze which she says she has had since . Oropharynx is pink with moist mucous membranes. No swelling of the mouth lips or tongue. Neck: Supple with a midline trachea. No meningeal signs or stiffness, no JVD or bruits. No Stridor. Chest: Clear to auscultation bilaterally. No wheezes or rhonchi. No increased work of breathing. Heart: Regular rate and rhythm without murmurs or gallops. Abdomen: Soft nontender, nondistended without rebound guarding or rigidity. Extremities: No cyanosis clubbing or edema. No calf tenderness or assymetry Spine/Back. Non tender to palpation. No CVA tenderness Skin: Good turgor without rashes. Neurologic exam: Cranial nerves two through 12 are intact. Motor and sensation are intact and symmetrical throughout. No tremor. Course Administered Medications Discontinued Medications Sodium Chloride (Nss 1000ml) 1,000 mls @ 999 mls/hr IV .Q1H1M ONE Stop: 10/02/21 22:40 Last Infusion: 10/02/21 23:11 Dose: 0 mls/hr Documented By: Admin: 10/02/21 21:59 Dose: 999 mls/hr Documented By: ARABELLA Cefepime HCl (Maxipime) 2,000 mg in 20 mls @ 5 mls/min IV NOW STA; Protocol Stop: 10/02/21 22:48 Last Admin: 10/02/21 22:56 Dose: 5 mls/min Documented By: ARABELLA Medical Decision Making Differential Diagnosis Sepsis, COVID, central neurologic process, UTI, electrolyte or metabolic abnormality, dehydration, cardiac disease Medical Records Attestation: I reviewed the patient's medical records. Home Medications Current Medication List: was personally reviewed by me Laboratory Data Attestation: I reviewed the patient's lab results. Result diagrams: 10/02/21 21:31 10/02/21 21:31 Lab Results 10/02/21 10/02/21 10/02/21 Range/Units 21:31 21:31 21:31 WBC 12.09 H (4.8-10.8) K/ul RBC 3.44 L (3.93-5.22) M/uL Hgb 11.4 L (12.0-16.0) g/dl Hct 33.2 L (34.1-44.9) % MCV 96.5 (80.0-100.0) fL MCH 33.1 (25.0-34.0) pg MCHC 34.3 (32.0-36.0) g/dL RDW Std Deviation 52.1 H (36.4-46.3) fL RDW Coeff of Bob 14.9 H (11.5-14.5) % Plt Count 167 (130-400) K/uL MPV 11.0 (9.4-12.3) fL Immature Gran % (Auto) 0.2 % Neut % (Auto) 69.4 % Lymph % (Auto) 21.4 % [place] % (Auto) 8.9 % Eos % (Auto) 0.0 % Baso % (Auto) 0.1 % Neut # (Auto) 8.38 H (1.4-6.5) K/uL Lymph # (Auto) 2.59 (1.2-3.4) K/uL [place] # (Auto) 1.08 H (0.24-0.82) K/uL Eos # (Auto) 0.00 (0-0.50) K/uL Baso # (Auto) 0.01 (0-0.2) K/uL Immature Gran # (Auto) 0.03 H (0.00-0.02) K/uL PT 12.9 H (9.0-12.0) Seconds INR 1.2 H (0.9-1.1) APTT 26.4 (21.0-31.0) Seconds PTT Ratio 1.0 Sodium 135 L (136-145) mmol/L Potassium 3.4 L (3.5-5.1) mmol/L Chloride 107 (98-107) mmol/L Carbon Dioxide 19 L (21-32) mmol/L Anion Gap 9 (3-11) BUN 36 H (6-23) mg/dl Creatinine 1.04 (0.6-1.2) mg/dl Est Cr Clr Drug Dosing 42.9 ml/min Est GFR ( Amer) 66.7 ml/min Est GFR (Non-Af Amer) 57.5 ml/min BUN/Creatinine Ratio 34.6 H (10-20) Glucose 130 H (70-99(Fasting)) mg/dl POC Glucose (70-99) mg/dl Lactate (0.4-2.0) mmol/L Calcium 8.3 L (8.5-10.1) mg/dl Magnesium 1.3 L (1.7-2.4) mg/dl Total Bilirubin 0.5 (0.2-1.0) mg/dl AST 22 (13-39) U/L ALT 18 (7-52) U/L Alkaline Phosphatase 110 H (34-104) U/L Troponin I High Sens 111.5 H* (0-14) pg/ml Total Protein 5.8 L (6.0-8.3) gm/dl Albumin 3.6 (3.4-5.0) gm/dl Globulin 2.2 L (2.5-4.0) gm/dl Albumin/Globulin Ratio 1.6 (0.9-2) Procalcitonin (0-0.5) ng/ml Urine Color Urine Appearance (Clear) Urine pH (4.5-7.5) Ur Specific Gill (1.000-1.030) Urine Protein (Negative) Urine Glucose (UA) (Negative) Urine Ketones (Negative) Urine Blood (Negative) Urine Nitrite (Negative) Urine Bilirubin (Negative) Urine Urobilinogen (Negative) Ur Leukocyte Esterase (Negative) Urine WBC (Auto) (0-5) /hpf Urine RBC (Auto) (0-4) /hpf U Hyaline Cast (Auto) (0-5) /lpf U Epithel Cells (Auto) (0-5) /lpf Urine Bacteria (Auto) (Negative) SARS-CoV-2 (PCR) (Negative) Influenza Type A (PCR) (Neg) Influenza Type B (PCR) (Neg) RSV (RT-PCR) (Neg) 10/02/21 10/02/21 10/02/21 Range/Units 21:31 21:47 21:48 WBC (4.8-10.8) K/ul RBC (3.93-5.22) M/uL Hgb (12.0-16.0) g/dl Hct (34.1-44.9) % MCV (80.0-100.0) fL MCH (25.0-34.0) pg MCHC (32.0-36.0) g/dL RDW Std Deviation (36.4-46.3) fL RDW Coeff of Bob (11.5-14.5) % Plt Count (130-400) K/uL MPV (9.4-12.3) fL Immature Gran % (Auto) % Neut % (Auto) % Lymph % (Auto) % [place] % (Auto) % Eos % (Auto) % Baso % (Auto) % Neut # (Auto) (1.4-6.5) K/uL Lymph # (Auto) (1.2-3.4) K/uL [place] # (Auto) (0.24-0.82) K/uL Eos # (Auto) (0-0.50) K/uL Baso # (Auto) (0-0.2) K/uL Immature Gran # (Auto) (0.00-0.02) K/uL PT (9.0-12.0) Seconds INR (0.9-1.1) APTT (21.0-31.0) Seconds PTT Ratio Sodium (136-145) mmol/L Potassium (3.5-5.1) mmol/L Chloride (98-107) mmol/L Carbon Dioxide (21-32) mmol/L Anion Gap (3-11) BUN (6-23) mg/dl Creatinine (0.6-1.2) mg/dl Est Cr Clr Drug Dosing ml/min Est GFR ( Amer) ml/min Est GFR (Non-Af Amer) ml/min BUN/Creatinine Ratio (10-20) Glucose (70-99(Fasting)) mg/dl POC Glucose (70-99) mg/dl Lactate 1.1 (0.4-2.0) mmol/L Calcium (8.5-10.1) mg/dl Magnesium (1.7-2.4) mg/dl Total Bilirubin (0.2-1.0) mg/dl AST (13-39) U/L ALT (7-52) U/L Alkaline Phosphatase (34-104) U/L Troponin I High Sens (0-14) pg/ml Total Protein (6.0-8.3) gm/dl Albumin (3.4-5.0) gm/dl Globulin (2.5-4.0) gm/dl Albumin/Globulin Ratio (0.9-2) Procalcitonin 0.14 (0-0.5) ng/ml Urine Color Urine Appearance (Clear) Urine pH (4.5-7.5) Ur Specific Gill (1.000-1.030) Urine Protein (Negative) Urine Glucose (UA) (Negative) Urine Ketones (Negative) Urine Blood (Negative) Urine Nitrite (Negative) Urine Bilirubin (Negative) Urine Urobilinogen (Negative) Ur Leukocyte Esterase (Negative) Urine WBC (Auto) (0-5) /hpf Urine RBC (Auto) (0-4) /hpf U Hyaline Cast (Auto) (0-5) /lpf U Epithel Cells (Auto) (0-5) /lpf Urine Bacteria (Auto) (Negative) SARS-CoV-2 (PCR) POSITIVE A* (Negative) Influenza Type A (PCR) Negative (Neg) Influenza Type B (PCR) Negative (Neg) RSV (RT-PCR) Negative (Neg) 10/02/21 10/02/21 Range/Units 21:52 23:34 WBC (4.8-10.8) K/ul RBC (3.93-5.22) M/uL Hgb (12.0-16.0) g/dl Hct (34.1-44.9) % MCV (80.0-100.0) fL MCH (25.0-34.0) pg MCHC (32.0-36.0) g/dL RDW Std Deviation (36.4-46.3) fL RDW Coeff of Bob (11.5-14.5) % Plt Count (130-400) K/uL MPV (9.4-12.3) fL Immature Gran % (Auto) % Neut % (Auto) % Lymph % (Auto) % [place] % (Auto) % Eos % (Auto) % Baso % (Auto) % Neut # (Auto) (1.4-6.5) K/uL Lymph # (Auto) (1.2-3.4) K/uL [place] # (Auto) (0.24-0.82) K/uL Eos # (Auto) (0-0.50) K/uL Baso # (Auto) (0-0.2) K/uL Immature Gran # (Auto) (0.00-0.02) K/uL PT (9.0-12.0) Seconds INR (0.9-1.1) APTT (21.0-31.0) Seconds PTT Ratio Sodium (136-145) mmol/L Potassium (3.5-5.1) mmol/L Chloride (98-107) mmol/L Carbon Dioxide (21-32) mmol/L Anion Gap (3-11) BUN (6-23) mg/dl Creatinine (0.6-1.2) mg/dl Est Cr Clr Drug Dosing ml/min Est GFR ( Amer) ml/min Est GFR (Non-Af Amer) ml/min BUN/Creatinine Ratio (10-20) Glucose (70-99(Fasting)) mg/dl POC Glucose 128 H (70-99) mg/dl Lactate (0.4-2.0) mmol/L Calcium (8.5-10.1) mg/dl Magnesium (1.7-2.4) mg/dl Total Bilirubin (0.2-1.0) mg/dl AST (13-39) U/L ALT (7-52) U/L Alkaline Phosphatase (34-104) U/L Troponin I High Sens (0-14) pg/ml Total Protein (6.0-8.3) gm/dl Albumin (3.4-5.0) gm/dl Globulin (2.5-4.0) gm/dl Albumin/Globulin Ratio (0.9-2) Procalcitonin (0-0.5) ng/ml Urine Color Yellow Urine Appearance Clear (Clear) Urine pH 6.0 (4.5-7.5) Ur Specific Gill 1.008 (1.000-1.030) Urine Protein 1+ H (Negative) Urine Glucose (UA) Negative (Negative) Urine Ketones Negative (Negative) Urine Blood Negative (Negative) Urine Nitrite Negative (Negative) Urine Bilirubin Negative (Negative) Urine Urobilinogen Negative (Negative) Ur Leukocyte Esterase Negative (Negative) Urine WBC (Auto) 1-5 (0-5) /hpf Urine RBC (Auto) 0-4 (0-4) /hpf U Hyaline Cast (Auto) 0 (0-5) /lpf U Epithel Cells (Auto) 5-10 H (0-5) /lpf Urine Bacteria (Auto) Negative (Negative) SARS-CoV-2 (PCR) (Negative) Influenza Type A (PCR) (Neg) Influenza Type B (PCR) (Neg) RSV (RT-PCR) (Neg) Imaging Data Attestation: I personally reviewed and interpreted this imaging study as follows: My Impression: Chest x-rayno acute infiltrate, failure, pneumothorax seen Radiologist's Impression: Head Ct- Normal CT. STAT Rad ECG Data Attestation: I personally reviewed and interpreted this ECG as follows: Indication: + altered mental status Rate (beats per minute): 102 Rhythm: + normal sinus ECG Intervals/blocks: + Normal QRS, + Normal QT and + Normal [place] ECG [place]: + Normal ECG ST segments: + Normal ST segments ECG Findings: no PACs or no PVCs Comparison ECG Date: no prior available MDM Narrative This patient is a 61-year-old female who comes in with confusion. IV access established I was concerned for sepsis given her confusion as well as her history of a recent UTI. She was given a 1 L normal saline bolus initially. She was also given cefepime empiric antibiotic coverage 2 g. She had no allergies listed to antibiotics and denied any to me. CAT scan of her head was done was unremarkable. Chest x-ray does not show anything to suggest congestive heart failure pneumonia or pneumothorax. White count is mildly elevated 11. Her BUN is mildly elevated as well and she could have some mild dehydration. Her COVID test did come back positive which could easily explain her symptoms as well. Her troponin also came back elevated her EKG does not suggest ischemia and I have asked her multiple times she has no chest pain or shortness of breath. Urinalysis is pending. I do think she needs to be admitted for further treatment evaluation of consulted Dr. Tuttle, who to see her in the ER for these measures. 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 Upon my interpretation the patient was noted to be in normal sinus rhythm with a rate of 80. Impression & Plan Altered level of consciousness, Dehydration, COVID, Elevated troponin Discharge Plan Visit Data Chief Complaint: Illness Stated Complaint: illness ED Provider: Carter Retana Prescriptions Prescriptions: No Action ergocalciferol (vitamin D2) 1,250 mcg (50,000 unit) capsule 1,250 mcg PO .weekly Qty: 12 1RF carvedilol [Coreg] 3.125 mg tablet 3.125 mg PO BID Rx Instructions: must administer with a meal/food lisinopril 30 mg tablet 30 mg PO DAILY multivitamin [Daily-Damien] Tablet 1 tab PO DAILY Nephro-Damien 0.8 mg tablet 1 tab PO DAILY Qty: 30 3RF atorvastatin 40 mg tablet 40 mg PO DAILY Qty: 30 aspirin 81 mg tablet 81 mg PO DAILY
[2021-10-03] MEDS: MAGNESIUM SULFATE / D5W 1 GM/100 ML BAG IV SCH ×2 (01:19→02:06)
[2021-10-03] MEDS ORDERED: ENOXAPARIN INJ 40 MG/0.4 ML SYR SQ SCH (01:24)
[2021-10-03] MEDS ORDERED: NITROGLYCERIN SL 0.4 MG/TAB TAB SL PRN (01:24)
[2021-10-03] MEDS ORDERED: hydrALAZINE HCL 20 MG/ML VIAL IV PRN (01:24)
[2021-10-03] MEDS ORDERED: SODIUM CHLORIDE 0.45 % 1,000 ML IV SCH (01:24)
[2021-10-03] MEDS ORDERED: ACETAMINOPHEN 325 MG TAB PO PRN (01:24)
[2021-10-03] MEDS ORDERED: POLYETHYLENE (MIRALAX) 17 GM PACK PO PRN (01:24)
--- NOTE | 2021-10-03 02:20 | History and Physical Report ---
DATE OF ADMISSION: 10/03/2021. CHIEF COMPLAINT: Confusion. HISTORY OF PRESENT ILLNESS: This is a 61-year-old female with past medical history significant for CAD, status post stents; hypertension; history of chronic systolic heart failure, but as per echo in April 2021 EF normalized; history of GI bleed; history of irritable bowel syndrome with diarrhea; history of electrolyte and fluid disorder; history of hypertension; history of chronic kidney disease stage III; history of nocturnal enuresis; history of anemia of chronic kidney disease; history of obsessive compulsive disorder, currently living at [facility]. As per the cardiology notes, the patient is living in [facility] for about a year as she seems to be noncompliant with the medications. The patient is currently alert and awake, can tell her name, knows that she is in the hospital, knows her date of , but could not tell today's date. As per the [facility], she was sent here because she was not acting herself. Otherwise, she ambulates okay. Eats regular food. The patient has no fevers or chills. No headache, no blurred visions, no earache, no runny nose, no sore throat, no cough, no chest pain, no shortness of breath, no nausea, no abdominal pain. Appetite is okay. No diarrhea, no constipation. Normal bladder movements. No swelling in the legs. Currently, resting comfortably, hemodynamically stable. ALLERGIES: No known drug allergies. PAST MEDICAL HISTORY: As mentioned above. PAST SURGICAL HISTORY: Status post cardiac catheterization and stent placement, correction of rectal prolapse. MEDICATIONS: As per [facility], the patient is on FiberCon 625 mg p.o. daily, oxybutynin chloride 5 mg p.o. daily, aspirin 81 mg p.o. daily, lisinopril 30 mg p.o. daily, vitamin D 5000 Units p.o. daily, Tess-Damien tablet daily, atorvastatin 40 mg p.o. daily, Coreg 6.25 mg p.o. b.i.d., Zofran 4 mg p.r.n., Tylenol Extra Strength p.r.n. FAMILY HISTORY: Significant for family history on file. SOCIAL HISTORY: , no smoking, no alcohol, no drug use. Currently living at [facility]. REVIEW OF SYSTEMS: As per HPI. Rest of the review of systems is negative. PHYSICAL EXAMINATION: GENERAL: The patient is thin and frail, not in acute distress. VITAL SIGNS: Temperature 37.2, pulse 79, respiratory rate 20, blood pressure 179/87, oxygen 97% on room air. HEENT: Pupils equal, round and reactive to light. Oral mucosa moist. NECK: No JVD, no neck masses. CARDIOVASCULAR: S1 and S2 heard. Regular rate and rhythm. No murmur, no gallop. RESPIRATORY SYSTEM: Normal AP diameter. No accessory muscle use. No wheezing or crackles. ABDOMEN: Soft, bowel sounds present, nontender, no distention. CENTRAL NERVOUS SYSTEM: Alert and oriented x2. Speech is clear. No facial droop. Obeys simple commands. Moves extremities. EXTREMITIES: No edema, no erythema. LABORATORY DATA: WBC 12, hemoglobin 11.4, hematocrit 33.2, platelets 167. PT 12.9, INR 1.2, APTT 26.4. Sodium 135, potassium 3.4, chloride 107, bicarbonate 19, BUN 36, creatinine 1.04, serum glucose 130. Lactate 1.2, calcium 8.3, magnesium 1.3, total bilirubin 0.5, AST 22, ALT 18, alkaline phosphatase 110. Troponin I high sensitivity of 111. Procalcitonin 0.14. Urinalysis negative. SARS-CoV-2 PCR positive. Influenza A and B PCR negative. RSV PCR negative. IMAGING DATA: CT scan of the head, preliminary report, no acute findings. Chest x-ray, no acute findings. EKG: Sinus tachycardia at a rate of 102. T-wave inversions in the anterior leads.(seem to present in previous ekg) ASSESSMENT AND PLAN: This is a 61-year-old female who presents with confusion. 1. Confusion: Probably secondary to COVID. The ER initially gave cefepime for possible uti , but urinalysis came back negative. CT of the head is unremarkable. Saturating okay in the room air. As per the EPIC, she is vaccinated, but not boosted, but as per the patient, she says she is boosted once. Does not know when she was boosted. Will do COVID precautions and closely monitor in the [employer] tele. 2. Electrolyte abnormalities, hypokalemia and hypomagnesemia: Will replace. 3. Elevated troponin: Will follow serial enzymes. The patient denies any chest pain. The patient has history of coronary artery disease, status post stents, on aspirin, statin, and beta-hayley, which will be continued. If any concern, will get echo and cardiac consult. 4. Hypertension: Continue Coreg and lisinopril. Monitor the blood pressure. Will place on IV hydralazine p.r.n. 5. History of hyperlipidemia: Continue statin. 6. Chronic kidney disease stage III: Presently with a creatinine of 1.04, will follow the labs. 7. Anemia of chronic kidney disease: Hemoglobin seems to be stable. 8. History of chronic systolic congestive heart failure: But in echo in April 2021, EF normalized. Will monitor for any volume overload. 9. Deep venous thrombosis prophylaxis: Placed on Lovenox. DISPOSITION: Closely monitor in the med tele. PT/OT prior to discharge. Social service to help with discharge planning. Level 1 full code. Job ID: [id number] MTDD
[2021-10-03] MEDS ORDERED: ENOXAPARIN INJ 40 MG/0.4 ML SYR ONE (02:39)
[2021-10-03 05:06] LABS: Basophils # (auto) 0.02 K/uL (0-0.2); Basophils % (auto) 0.2 %; Hematocrit (blood only) 31.1 % (34.1-44.9); Hemoglobin 10.3 g/dl (12.0-16.0); Immature Granulocytes # (auto) 0.03 K/uL (0.00-0.02); Immature Granulocytes % (auto) 0.3 %; Lymphocytes # (auto) 2.19 K/uL (1.2-3.4); Lymphocytes % (auto) 20.3 %; Mean Corpuscular Hemoglobin 33.2 pg (25.0-34.0); Mean Corpuscular Hgb Conc 33.1 g/dL (32.0-36.0); Mean Corpuscular Volume 100.3 fL (80.0-100.0); Mean Platelet Volume 10.2 fL (9.4-12.3); Monocytes # (auto) 0.88 K/uL (0.24-0.82); Monocytes % (auto) 8.1 %; Neutrophils # (auto) 7.68 K/uL (1.4-6.5); Neutrophils % (auto) 71.1 %; Platelet Count 138 K/uL (130-400); RDW Standard Deviation 54.6 fL (36.4-46.3)
[2021-10-03 05:31] LABS: Anion Gap 5 (3-11); BUN Creatinine Ratio 29.8 (10-20); Blood Urea Nitrogen 28 mg/dl (6-23); C Reactive Protein < 0.50 mg/dl (0-0.5); Calcium 7.7 mg/dl (8.5-10.1); Carbon Dioxide 19 mmol/L (21-32); Chloride 112 mmol/L (98-107); Creatinine Clr Calc Pharmacy 47.1 ml/min; Est GFR (African American) 75.4 ml/min; Glucose 130 mg/dl (70-99(Fasting)); Magnesium 2.1 mg/dl (1.7-2.4); Potassium 3.8 mmol/L (3.5-5.1); Sodium 136 mmol/L (136-145)
[2021-10-03 05:39] LABS: Troponin I High Sensitivity 65.5 pg/ml (0-14)
--- NOTE | 2021-10-03 07:29 | CT Scan Report ---
CT head/brain wo con CLINICAL HISTORY: 61 years-old Female with altered loc. Acutely altered mental status TECHNIQUE: Multiple axial CT images of the head were obtained without contrast. A dose lowering tech nique was utilized adhering to the principles of ALARA. CT DOSE: 537.48 mGy.cm COMPARISON: Head CT 10/06/2016. FINDINGS: No acute intracranial hemorrhage, midline shift, intracranial mass, hydrocephalus, territorial ischem ia or abnormal extra-axial collection. The calvarium is intact. The paranasal sinuses, mastoid air cells, and middle ear cavities are clear . IMPRESSION: No acute intracranial abnormality. ACT 112: Negative or not required by law. The above report was generated using voice recognition software. It may contain grammatical, syntax o r spelling errors. Electronically signed by: Parish Karimi M.D. 10/03/2021 7:27 AM
--- NOTE | 2021-10-03 07:48 | XRay Report ---
XR chest 1V portable HISTORY: 61 years-old Female SEPSIS acute sepsis COMPARISON: Chest radiograph 12/24/2017 TECHNIQUE: AP view of the chest FINDINGS: The cardiomediastinal and hilar silhouettes are within normal limits. No pneumothorax, pleural effusi on, airspace consolidation or overt pulmonary edema. Degenerative changes of the shoulders and spine. IMPRESSION: No acute process. ACT 112: Negative or not required by law. The above report was generated using voice recognition software. It may contain grammatical, syntax o r spelling errors. Electronically signed by: Parish Karimi M.D. 10/03/2021 7:46 AM
[2021-10-03] MEDS ORDERED: NEPHROCAPS PO SCH (09:00)
[2021-10-03] MEDS ORDERED: ATORVASTATIN 40 MG TAB PO SCH (09:00)
[2021-10-03] MEDS ORDERED: lisinopril 10 MG TAB PO SCH (09:00)
[2021-10-03] MEDS ORDERED: carvediloL 6.25 MG TAB PO SCH (09:00)
[2021-10-03] MEDS ORDERED: MULTIVITAMIN TAB PO SCH (09:00)
[2021-10-03] MEDS ORDERED: ASPIRIN 81 MG ECTAB PO SCH (09:00)
--- NOTE | 2021-10-03 16:38 | Discharge Summary ---
Date of Service October 03, 2021 Admission HPI Per Admitting Provider This is a 61-year-old female with past medical history significant for CAD, status post stents; hypertension; history of chronic systolic heart failure, but as per echo in April 2021 EF normalized; history of GI bleed; history of irritable bowel syndrome with diarrhea; history of electrolyte and fluid disorder; history of hypertension; history of chronic kidney disease stage III; history of nocturnal enuresis; history of anemia of chronic kidney disease; history of obsessive compulsive disorder, currently living at [facility]. As per the cardiology notes, the patient is living in [facility] for about a year as she seems to be noncompliant with the medications. The patient is currently alert and awake, can tell her name, knows that she is in the hospital, knows her date of , but could not tell today's date. As per the [facility], she was sent here because she was not acting herself. Otherwise, she ambulates okay. Eats regular food. The patient has no fevers or chills. No headache, no blurred visions, no earache, no runny nose, no sore throat, no cough, no chest pain, no shortness of breath, no nausea, no abdominal pain. Appetite is okay. No diarrhea, no constipation. Normal bladder movements. No swelling in the legs. Currently, resting comfortably, hemodynamically stable. Admission Exam Per Admitting Provider GENERAL: The patient is thin and frail, not in acute distress. VITAL SIGNS: Temperature 37.2, pulse 79, respiratory rate 20, blood pressure 179/87, oxygen 97% on room air. HEENT: Pupils equal, round and reactive to light. Oral mucosa moist. NECK: No JVD, no neck masses. CARDIOVASCULAR: S1 and S2 heard. Regular rate and rhythm. No murmur, no gallop. RESPIRATORY SYSTEM: Normal AP diameter. No accessory muscle use. No wheezing or crackles. ABDOMEN: Soft, bowel sounds present, nontender, no distention. CENTRAL NERVOUS SYSTEM: Alert and oriented x2. Speech is clear. No facial droop. Obeys simple commands. Moves extremities. EXTREMITIES: No edema, no erythema. Principal Diagnosis delirium Discharge Exam GENERAL: The patient is thin and frail, not in acute distress. VITAL SIGNS: Temperature 37.2, pulse 79, respiratory rate 20, blood pressure 179/87, oxygen 97% on room air. HEENT: Pupils equal, round and reactive to light. Oral mucosa moist. NECK: No JVD, no neck masses. CARDIOVASCULAR: S1 and S2 heard. Regular rate and rhythm. No murmur, no gallop. RESPIRATORY SYSTEM: Normal AP diameter. No accessory muscle use. No wheezing or crackles. ABDOMEN: Soft, bowel sounds present, nontender, no distention. CENTRAL NERVOUS SYSTEM: Alert and oriented x3 - could not tell me the month but knew the year. Speech is clear. No facial droop. Obeys simple commands. Moves extremities. EXTREMITIES: No edema, no erythema. Discharge Data Allergies Allergy/AdvReac Type Severity Reaction Status Date / Time No Known Allergies Allergy NONE Verified 02/13/21 08:53 Consultations 10/02/21 23:15 ED Decision to Admit Stat Ordered Studies 10/02/21 21:40 CT head/brain wo con Urgent Hospital Course (1) Dehydration: Plan The patient was admitted for confusion and was AAOx2 on admission per the [facility] hospitalist. Patients labs were significant for WBC 12 that normalized with IVF and one dose of cefepime, but cefepime was not continued as there as no other evidence infection, UA negative, CXR clear, blood cultures drawn with NGTD, afebrile and asymptomatic in any way. Incidentally COVID19+ but was also found positive 07/2021 so unclear if this is same infection. Patient was likely dehydrated and had episode of delerium which appeared to have resolved in the morning. She was deemed stable for discharge back to the [facility], where she resides. Total Time Total Time Spent Total Time Spent (In Minutes): 20 Total Time Includes: Examination of the Patient, Discharge Planning and Medication Reconciliation Discharge Plan Discharge Items Patient Disposition: Personal [facility] Reason For Visit: ILLNESS Discharge Diagnosis: delerium Activity: Resume your previous activity Non-emergency contact: Primary Care Provider Call non-emergency contact if: you have any medication questions and your symptoms worsen Follow-up/Referrals: CHELITA, [Primary Care Provider] - (Dr Sophy Bernstein will see you in follow up at [facility] ) Diet: Heart Healthy Addtl Attending Provider Instructions: You were admitted for acute delerium which may be related to dehydration but you are doing better today. You can return back to [facility]. Be sure to stay active and eat and hydrate well. Pending Studies at Discharge: No Stand-Alone Forms: My [facility], Smoking Cessation Skilled Items Patient informed of condition?: Yes DNR: No Discharge Level of Care: Other Communicable Disease: Yes Discharge Prognosis: Stable Lines: None Urinary Catheter: No Medications and DC Order Prescriptions: New multivitamin with folic acid [Daily-Damien (with folic acid)] 400 mcg Tablet 1 tab PO DAILY Qty: 30 0RF Continued lisinopril 30 mg tablet 30 mg PO DAILY Nephro-Damien 0.8 mg tablet 1 tab PO DAILY Qty: 30 3RF atorvastatin 40 mg tablet 40 mg PO DAILY Qty: 30 carvedilol 6.25 mg tablet 6.25 mg PO BID ondansetron HCl 4 mg tablet 4 mg PO Q6 PRN (Reason: Nausea) cyanocobalamin (vitamin B-12) [Vitamin B-12] 1,000 mcg Tablet 1,000 mcg PO DAILY aspirin 81 mg Tablet,Delayed Release (Dr/Ec) 81 mg PO DAILY acetaminophen [Tylenol Extra Strength] 500 mg Tablet 500 mg PO Q4 PRN (Reason: Pain) calcium polycarbophil [FiberCon] 625 mg Tablet 650 mg PO QID Rx Instructions: take am, noon,pm & hs calcium carbonate 500 mg calcium (1,250 mg) Tablet,Chewable 500 mg PO DAILY ergocalciferol (vitamin D2) [Vitamin D2] 1,250 mcg (50,000 unit) Capsule 625 mcg PO DAILY oxybutynin chloride 5 mg tablet 5 mg PO TID Discharge Orders: Discharge Order (Routine); Ordered 10/03/21 Ordered By: Rudi Barajas Admission Data Admit Date/Time: 10/03/21 00:27 Attending Provider: Rudi Barajas Admit Provider: Dick Tuttle Primary Care Provider: Cmaeron MERLOS Providers: Dick Tuttle Other Interventions: Discharge Summary Assessment (RN) Last Done: 10/03/21 14:55
--- NOTE | 2021-10-03 18:42 | Electrocardiogram Report ---
Test Reason : Blood Pressure : / mmHG Vent. Rate : 102 BPM Atrial Rate : 102 BPM P-R Int : 150 ms QRS Dur : 080 ms QT Int : 342 ms P-R-T Axes : 073 065 071 degrees QTc Int : 445 ms Poor data quality, interpretation may be adversely affected Sinus tachycardia Otherwise normal ECG When compared with ECG of 26-DEC-2017 06:31, T wave inversion now evident in Anterior leads Confirmed by Froylan Vu ([id number] on 10/03/2021 6:42:25 PM Referred By: REFERRED SELF Confirmed By:Lorenzo Vu
[2021-10-04] MEDS ORDERED: ENOXAPARIN INJ 30 MG/0.3 ML SYR SQ SCH (09:00)
== END 2021-10-03 15:38 | disposition home or self-care (01) | DRG 640 ==
LOC: ED 21:09 → EDINP 10-03 00:27 → SUATTDRO 10-03 00:27 → 2W 10-03 01:33
DX: Z95.5 Presence of coronary angioplasty implant and graft; I25.10 Atherosclerotic heart disease of native coronary artery without angina pectoris; E87.6 Hypokalemia; R41.0 Disorientation, unspecified; N18.30 Chronic kidney disease, stage 3 unspecified; Z79.82 Long term (current) use of aspirin; E86.0 Dehydration; E83.42 Hypomagnesemia; U07.1 COVID-19; D63.1 Anemia in chronic kidney disease; I13.0 Hypertensive heart and chronic kidney disease with heart failure and stage 1 through stage 4 chronic kidney disease, or unspecified chronic kidney disease; I50.22 Chronic systolic (congestive) heart failure

== ENCOUNTER 2021-12-24 10:17 | Observation (INO) ==
[2021-12-24] MEDS ORDERED: MoRPHine SULFATE 4 MG/ML 1 ML CARP\\VIAL IV STA (11:02)
[2021-12-24] MEDS ORDERED: ONDANSETRON INJ 2 MG/ML 2 ML VIAL IV STA (11:02)
[2021-12-24] MEDS ORDERED: SODIUM CHLORIDE 0.9% 500 ML IV STA (11:02)
--- NOTE | 2021-12-24 11:10 | Emergency Department Note ---
Impression & Plan Acute pain of left hip, Arthritis pain, hip, URBAN (acute kidney injury), UTI (urinary tract infection), Anemia ED Provider Note NAME: DEXTER ABARCA AGE: 61 SEX: F : 1960 ARRIVES VIA: Ambulance INFORMANT: Patient, ED PROVIDER(S): Mateus Olson DO CHIEF COMPLAINT: Hip pain HPI: The patient is a 61-year-old female who presented to the emergency department for an evaluation of hip pain. The patient describes left-sided hip pain which began approximately 3 days ago. She states it is slowly worsening. She denies having any injuries. She denies having any back pain. She denies having any dysuria or frequency. She denies having any chest pain or difficulty breathing. She states that she lives at the [facility] but has not been seen by her provider. She states "the nurses thought I should be seen by somebody since the pain is been going on for 3 days". She states that she has a history of hip arthritis and has had similar episodes many times over the last few years. She states that she is never been seen by a provider to determine if she requires surgery. The patient denies having any swelling in the leg. She denies having any weakness in the leg. ROS: See above HPI for pertinent positives & negatives. A total of 10 systems reviewed and were otherwise negative. PAST MEDICAL HISTORY: See Below PAST SURGICAL HISTORY: See Below FAMILY HISTORY: See Below SOCIAL HISTORY: See Below HOME MEDICATIONS: See Below ALLERGIES: See Below VITALS: See Below PHYSICAL EXAMINATION: GENERAL: Patient is awake alert in no acute distress patient is resting comfortably and showing no signs of anxiety EYES: The conjunctivae are clear. The pupils are round and reactive. EARS, NOSE, MOUTH AND THROAT: The nose is without any evidence of any deformity. RESPIRATORY: Normal respiratory effort is noted there is no evidence of wheezing rhonchi or rales CARDIOVASCULAR: Regular rate and rhythm noted there no murmurs rubs or gallops normal S1 normal S2. GASTROINTESTINAL: The abdomen is soft. Abdomen is nontender. BACK: No midline tenderness or or step-off noted range of motion in flexion extension as well as rotation no signs of muscle spasm noted MUSCULOSKELETAL/EXTREMITIES: There is no gross deformity of either lower extremity. Patient does have pain with range of motion testing especially with internal and external rotation. There is no tenderness or swelling over the thigh. SKIN: There is no obvious evidence of any rash. There are no petechiae, pallor or cyanosis noted. Pulses were symmetric in both feet. NEUROLOGIC: Patient is awake alert and oriented x3 strength is symmetric patellar reflexes are 2+ bilaterally MEDICAL DECISION MAKING: The patient is a 61-year-old female who presented to the emergency department for an evaluation of left hip pain. The patient does have a history of left- sided osteoarthritis but apparently this is gotten worse over the last few days according to her [facility] staff. The patient was treated with pain medication in the emergency department. The patient did have a urine dip for possible infection but a urinalysis and culture are still pending. She was treated with IV pain medication as well as IV fluids. She was also treated with IV antibiotics for presumed urinary tract infection. The patient was not able to ambulate very well. For this reason I [facility] They have agreed to evaluate the patient in the emergency department for further management and disposition. Triage Nursing notes reviewed. Prior medical records reviewed Vital Signs: reviewed and remarkable for elevated blood pressure Differential diagnosis: Fracture, dislocation, neurovascular compromise, compartment syndrome, soft tissue injury, as well as other pathologies. ER treatment provided: See below Diagnostics interpreted by me: ECG: none Cardiac Monitoring: An order was placed for continuous cardiac monitoring. The monitor shows a rate of 88 bpm with sinus rhythm. Laboratory studies: As stated above and show below. Imaging studies: See below Consultation(s): I discussed this case with Rayne who [facility]. Past Med/Surg History Medical History CAD (coronary artery disease) NSTEMI s/p MARYBETH to [facility] 10/2008. Chronic RCA occlusion with adequate collaterals. Chronic anemia CKD (chronic kidney disease), stage III Hypertension Ischemic cardiomyopathy With normalization of EF Surgical History No significant past surgical history Family History Other Medical history non-contributory Social History Smoking Status: Never smoker Hx Alcohol Use: No Hx Substance Use: No Preferred Language: Occitan Communication Ability: Effective Stripper Color Required: No Beliefs That Will Affect Care: None marital status: Current Living Situation: Half-Way Feels Safe at Home: Yes Assistive Devices: Walker Allergies Allergies Allergy/AdvReac Type Severity Reaction Status Date / Time No Known Allergies Allergy NONE Verified 12/24/21 15:10 Home Meds Home Medications Medication Instructions Recorded Confirmed B-complex with vitamin C 1 tab PO DAILY 12/24/21 12/24/21 acetaminophen 325 mg tablet 650 mg PO Q6 PRN .LEFT HIP PAIN 12/24/21 12/24/21 (Tylenol) acetaminophen 500 mg tablet 500 mg PO Q4 PRN .PAIN MAX 12/24/21 12/24/21 (Tylenol Extra Strength) aspirin 81 mg tablet,delayed 81 mg PO DAILY 12/24/21 12/24/21 release atorvastatin 40 mg tablet 40 mg PO DAILY 12/24/21 12/24/21 calcium carbonate 200 mg calcium 500 mg PO DAILY 12/24/21 12/24/21 (500 mg) chewable tablet (Calcium Antacid) calcium polycarbophil 625 mg 625 mg PO QID 12/24/21 12/24/21 tablet (FiberCon) carvedilol 6.25 mg tablet 6.25 mg PO AMHS 12/24/21 12/24/21 cholecalciferol (vitamin D3) 125 62.5 mcg PO DAILY 12/24/21 12/24/21 mcg (5,000 unit) tablet (Vitamin D3) cyanocobalamin (vitamin B-12) 1,000 mcg PO DAILY 12/24/21 12/24/21 1,000 mcg tablet (Vitamin B-12) food supplemt, lactose-reduced 1 ea PO TID 12/24/21 12/24/21 (Ensure oral liquid) furosemide 20 mg tablet 20 mg PO MOWEFR 12/24/21 12/24/21 lisinopril 30 mg tablet 30 mg PO DAILY 12/24/21 12/24/21 loperamide 2 mg capsule 2 mg PO QID PRN Diarrhea 12/24/21 12/24/21 mirtazapine 7.5 mg tablet 7.5 mg PO HS 12/24/21 12/24/21 omeprazole 20 mg capsule,delayed 20 mg PO DAILY 12/24/21 12/24/21 release ondansetron HCl 4 mg tablet 4 mg PO Q6 PRN Nausea 12/24/21 12/24/21 oxybutynin chloride 5 mg tablet 5 mg PO TID 12/24/21 12/24/21 potassium chloride 10 mEq 10 meq PO DAILY 12/24/21 12/24/21 tablet,extended release(part/cryst) Results & Data (ED) Vital Signs Vital Signs - 24 hr 12/24/21 10:25 12/24/21 10:25 12/24/21 11:35 Temperature 36.6 C Temperature Source Oral Pulse Rate 83 Pulse Rate [Apical] 80 Pulse Rate from SpO2 Sensor Respiratory Rate 16 18 Respiratory Depth Normal Blood Pressure 166/60 H Blood Pressure [Left Arm] 133/65 Blood Pressure Mean 95 Blood Pressure Mean [Left Arm] 87 Pulse Oximetry 96 100 100 Oxygen Delivery Method Room Air Room Air Room Air Sepsis Recent Fever Within 48 Hours No Sepsis New/Unexplained Change in Mental Status N/A Sepsis Action Taken by Nursing No Action Required 12/24/21 13:49 12/24/21 15:43 12/24/21 16:00 Temperature Temperature Source Pulse Rate 85 Pulse Rate [Apical] 77 Pulse Rate from SpO2 Sensor Respiratory Rate 18 20 Respiratory Depth Blood Pressure 182/68 H Blood Pressure [Left Arm] Blood Pressure Mean 106 Blood Pressure Mean [Left Arm] Pulse Oximetry 95 98 Oxygen Delivery Method Room Air Sepsis Recent Fever Within 48 Hours Sepsis New/Unexplained Change in Mental Status Sepsis Action Taken by Nursing 12/24/21 16:00 12/24/21 16:30 12/24/21 16:30 Temperature Temperature Source Pulse Rate 94 H 88 Pulse Rate [Apical] Pulse Rate from SpO2 Sensor 94 H 88 Respiratory Rate 16 15 Respiratory Depth Blood Pressure 161/75 H Blood Pressure [Left Arm] Blood Pressure Mean 103 Blood Pressure Mean [Left Arm] Pulse Oximetry 99 100 Oxygen Delivery Method Sepsis Recent Fever Within 48 Hours Sepsis New/Unexplained Change in Mental Status Sepsis Action Taken by [facility] Medications Current Medication List: was personally reviewed by me Laboratory Data Attestation: I reviewed the patient's lab results. Result diagrams: 12/24/21 11:17 12/24/21 16:48 Lab Results 12/24/21 12/24/21 12/24/21 Range/Units 11:17 11:17 11:17 WBC 8.70 (4.8-10.8) K/ul RBC 2.95 L (3.93-5.22) M/uL Hgb 9.5 L (12.0-16.0) g/dl Hct 29.5 L (34.1-44.9) % MCV 100.0 (80.0-100.0) fL MCH 32.2 (25.0-34.0) pg MCHC 32.2 (32.0-36.0) g/dL RDW Std Deviation 51.4 H (36.4-46.3) fL RDW Coeff of Bob 14.2 (11.5-14.5) % Plt Count 218 (130-400) K/uL MPV 9.7 (9.4-12.3) fL Immature Gran % (Auto) 0.3 % Neut % (Auto) 74.3 % Lymph % (Auto) 16.7 % [place] % (Auto) 7.8 % Eos % (Auto) 0.6 % Baso % (Auto) 0.3 % Neut # (Auto) 6.46 (1.4-6.5) K/uL Lymph # (Auto) 1.45 (1.2-3.4) K/uL [place] # (Auto) 0.68 (0.24-0.82) K/uL Eos # (Auto) 0.05 (0-0.50) K/uL Baso # (Auto) 0.03 (0-0.2) K/uL Immature Gran # (Auto) 0.03 H (0.00-0.02) K/uL PT 16.1 H (9.0-12.0) Seconds INR 1.5 H (0.9-1.1) APTT 34.0 H (21.0-31.0) Seconds PTT Ratio 1.2 ABG pH (7.35-7.45) ABG pCO2 (35-46) mmHg ABG pO2 (80-95) mmHg ABG HCO3 (19-24) mmol/L ABG O2 Saturation (90-95) % ABG Base Excess (-9-1.8) mEq/L Earle Test (Pos) VBG pH (7.36-7.41) VBG pCO2 (38-50) mmHg VBG pO2 mmHg VBG HCO3 mmol/L VBG O2 Saturation % VBG Base Excess mEq/L Oxygen Given Sodium 139 (136-145) mmol/L Potassium 4.3 (3.5-5.1) mmol/L Chloride 119 H (98-107) mmol/L Carbon Dioxide 13 L (21-32) mmol/L Anion Gap 7 (3-11) BUN 20 (6-23) mg/dl Creatinine 1.25 H (0.6-1.2) mg/dl Est Cr Clr Drug Dosing 36.8 ml/min Est GFR ( Amer) 53.4 ml/min Est GFR (Non-Af Amer) 46.1 ml/min BUN/Creatinine Ratio 16.0 (10-20) Glucose 99 (70-99(Fasting)) mg/dl Calcium 8.6 (8.5-10.1) mg/dl Total Bilirubin 0.2 (0.2-1.0) mg/dl AST 20 (13-39) U/L ALT 19 (7-52) U/L Alkaline Phosphatase 127 H (34-104) U/L Ammonia (18-72) umol/L Troponin I High Sens 9.7 D (0-14) pg/ml Total Protein 5.9 L (6.0-8.3) gm/dl Albumin 3.4 (3.4-5.0) gm/dl Globulin 2.5 (2.5-4.0) gm/dl Albumin/Globulin Ratio 1.4 (0.9-2) Lipase 51 (11-82) U/L SARS-CoV-2, RNA, NAAT (NEGATIVE) 12/24/21 12/24/21 12/24/21 Range/Units 15:05 16:30 16:48 WBC (4.8-10.8) K/ul RBC (3.93-5.22) M/uL Hgb (12.0-16.0) g/dl Hct (34.1-44.9) % MCV (80.0-100.0) fL MCH (25.0-34.0) pg MCHC (32.0-36.0) g/dL RDW Std Deviation (36.4-46.3) fL RDW Coeff of Bob (11.5-14.5) % Plt Count (130-400) K/uL MPV (9.4-12.3) fL Immature Gran % (Auto) % Neut % (Auto) % Lymph % (Auto) % [place] % (Auto) % Eos % (Auto) % Baso % (Auto) % Neut # (Auto) (1.4-6.5) K/uL Lymph # (Auto) (1.2-3.4) K/uL [place] # (Auto) (0.24-0.82) K/uL Eos # (Auto) (0-0.50) K/uL Baso # (Auto) (0-0.2) K/uL Immature Gran # (Auto) (0.00-0.02) K/uL PT (9.0-12.0) Seconds INR (0.9-1.1) APTT (21.0-31.0) Seconds PTT Ratio ABG pH (7.35-7.45) ABG pCO2 (35-46) mmHg ABG pO2 (80-95) mmHg ABG HCO3 (19-24) mmol/L ABG O2 Saturation (90-95) % ABG Base Excess (-9-1.8) mEq/L Earle Test (Pos) VBG pH 7.28 L (7.36-7.41) VBG pCO2 28 L (38-50) mmHg VBG pO2 39 mmHg VBG HCO3 13 mmol/L VBG O2 Saturation 70.3 % VBG Base Excess -12.0 mEq/L Oxygen Given Sodium 140 (136-145) mmol/L Potassium 4.0 (3.5-5.1) mmol/L Chloride 122 H (98-107) mmol/L Carbon Dioxide 12 L (21-32) mmol/L Anion Gap 6 (3-11) BUN 18 (6-23) mg/dl Creatinine 1.15 (0.6-1.2) mg/dl Est Cr Clr Drug Dosing 40.0 ml/min Est GFR ( Amer) 59.1 ml/min Est GFR (Non-Af Amer) 51.0 ml/min BUN/Creatinine Ratio 15.7 (10-20) Glucose 105 H (70-99(Fasting)) mg/dl Calcium 7.8 L (8.5-10.1) mg/dl Total Bilirubin (0.2-1.0) mg/dl AST (13-39) U/L ALT (7-52) U/L Alkaline Phosphatase (34-104) U/L Ammonia (18-72) umol/L Troponin I High Sens (0-14) pg/ml Total Protein (6.0-8.3) gm/dl Albumin (3.4-5.0) gm/dl Globulin (2.5-4.0) gm/dl Albumin/Globulin Ratio (0.9-2) Lipase (11-82) U/L SARS-CoV-2, RNA, NAAT NEGATIVE (NEGATIVE) 12/24/21 12/24/21 Range/Units 16:48 16:48 WBC (4.8-10.8) K/ul RBC (3.93-5.22) M/uL Hgb (12.0-16.0) g/dl Hct (34.1-44.9) % MCV (80.0-100.0) fL MCH (25.0-34.0) pg MCHC (32.0-36.0) g/dL RDW Std Deviation (36.4-46.3) fL RDW Coeff of Bob (11.5-14.5) % Plt Count (130-400) K/uL MPV (9.4-12.3) fL Immature Gran % (Auto) % Neut % (Auto) % Lymph % (Auto) % [place] % (Auto) % Eos % (Auto) % Baso % (Auto) % Neut # (Auto) (1.4-6.5) K/uL Lymph # (Auto) (1.2-3.4) K/uL [place] # (Auto) (0.24-0.82) K/uL Eos # (Auto) (0-0.50) K/uL Baso # (Auto) (0-0.2) K/uL Immature Gran # (Auto) (0.00-0.02) K/uL PT (9.0-12.0) Seconds INR (0.9-1.1) APTT (21.0-31.0) Seconds PTT Ratio ABG pH 7.30 L (7.35-7.45) ABG pCO2 23 L (35-46) mmHg ABG pO2 115 H (80-95) mmHg ABG HCO3 11 L (19-24) mmol/L ABG O2 Saturation 98.3 H (90-95) % ABG Base Excess -13.1 L (-9-1.8) mEq/L Earle Test p (Pos) VBG pH (7.36-7.41) VBG pCO2 (38-50) mmHg VBG pO2 mmHg VBG HCO3 mmol/L VBG O2 Saturation % VBG Base Excess mEq/L Oxygen Given room air Sodium (136-145) mmol/L Potassium (3.5-5.1) mmol/L Chloride (98-107) mmol/L Carbon Dioxide (21-32) mmol/L Anion Gap (3-11) BUN (6-23) mg/dl Creatinine (0.6-1.2) mg/dl Est Cr Clr Drug Dosing ml/min Est GFR ( Amer) ml/min Est GFR (Non-Af Amer) ml/min BUN/Creatinine Ratio (10-20) Glucose (70-99(Fasting)) mg/dl Calcium (8.5-10.1) mg/dl Total Bilirubin (0.2-1.0) mg/dl AST (13-39) U/L ALT (7-52) U/L Alkaline Phosphatase (34-104) U/L Ammonia 27.0 (18-72) umol/L Troponin I High Sens (0-14) pg/ml Total Protein (6.0-8.3) gm/dl Albumin (3.4-5.0) gm/dl Globulin (2.5-4.0) gm/dl Albumin/Globulin Ratio (0.9-2) Lipase (11-82) U/L SARS-CoV-2, RNA, NAAT (NEGATIVE) Administered Medications Discontinued Medications Sodium Chloride (Nss) 500 mls @ 999 mls/hr IV .Q31M STA Stop: 12/24/21 11:32 Last Infusion: 12/24/21 14:04 Dose: 0 mls/hr Documented By: Admin: 12/24/21 11:28 Dose: 999 mls/hr Documented By: [email or web address] Sodium Chloride (Nss 1000ml) 500 mls @ 999 mls/hr IV .Q31M ONE Stop: 12/24/21 15:18 Last Infusion: 12/24/21 16:26 Dose: 0 mls/hr Documented By: [id number] Admin: 12/24/21 15:40 Dose: 999 mls/hr Documented By: [id number] Ceftriaxone Sodium (Rocephin) 2,000 mg in 70 mls @ 140 mls/hr IV NOW STA Stop: 12/24/21 15:18 Last Infusion: 12/24/21 16:25 Dose: 0 mls/hr Documented By: [id number] Admin: 12/24/21 15:39 Dose: 140 mls/hr Documented By: [id number] Morphine Sulfate (Morphine Sulfate 4 Mg/Ml 1 Ml Carp\\Vial) 4 mg IV NOW STA Stop: 12/24/21 11:03 Last Admin: 12/24/21 11:28 Dose: 4 mg Documented By: [email or web address] Ondansetron HCl (Ondansetron Inj 2 Mg/Ml 2 Ml Vial) 4 mg IV NOW STA Stop: 12/24/21 11:03 Last Admin: 12/24/21 11:28 Dose: 4 mg Documented By: KV Imaging Data Radiologist's Impression: Hip/Pelvis X-Ray 12/24/21 10:37 XR hip LT 2V w pelvis CLINICAL HISTORY: Left hip pain. COMPARISON STUDY: Left hip CT 02/13/2021. Left hip radiograph 03/18/2013. FINDINGS: No fracture or dislocation within the pelvis or hips. Severe degenerative changes within the bilateral hips. Moderate osteoarthritis within the bilateral sacroiliac joints. The sacrum appears intact. Vascular calcifications are noted. IMPRESSION: 1. No acute fracture or dislocation within the pelvis or hips. 2. Severe osteoarthritis within the bilateral hips. ACT 112: Negative or not required by law. Electronically signed by: Albert Eubanks M.D. 12/24/2021 2:19 PM Chest X-Ray 12/24/21 11:03 SINGLE VIEW CHEST CLINICAL HISTORY: Hip pain FINDINGS: An AP, portable, upright chest radiograph is compared to study dated 10/02/2021 and correlated with chest CT dated 10/26/2009. The cardiomediastinal eliel houette is unremarkable. The lungs and pleural spaces are clear. No pneumothorax is seen. The skeletal structures are osteopenic. The bony thorax is grossly intact. IMPRESSION: No active disease in the chest. ACT 112: Negative or not required by law. Electronically signed by: Tesfaye Zamora M.D. 12/24/2021 1:54 PM Discharge Plan Visit Data Chief Complaint: Hip Pain Stated Complaint: HIP PAIN ED Provider: Mateus Olson Discharge Problem: Acute pain of left hip, Arthritis pain, hip, URBAN (acute kidney injury), UTI (urinary tract infection), Anemia Patient Disposition: Being Evaluated by Hospitalist Forms Stand Alone Forms: [facility] Prescriptions Prescriptions: No Action atorvastatin 40 mg tablet 40 mg PO DAILY acetaminophen [Tylenol] 325 mg Tablet 650 mg PO Q6 PRN (Reason: .LEFT HIP PAIN) carvedilol 6.25 mg tablet 6.25 mg PO AMHS loperamide [Imodium] 2 mg Capsule 2 mg PO QID PRN (Reason: Diarrhea) ondansetron HCl 4 mg tablet 4 mg PO Q6 PRN (Reason: Nausea) cyanocobalamin (vitamin B-12) [Vitamin B-12] 1,000 mcg Tablet 1,000 mcg PO DAILY aspirin [Aspir-Low] 81 mg Tablet,Delayed Release (Dr/Ec) 81 mg PO DAILY acetaminophen [Tylenol Extra Strength] 500 mg Tablet 500 mg PO Q4 PRN (Reason: .PAIN MAX) calcium carbonate [Calcium Antacid] 200 mg calcium (500 mg) Tablet,Chewable 500 mg PO DAILY calcium polycarbophil [FiberCon] 625 mg Tablet 625 mg PO QID lisinopril 30 mg tablet 30 mg PO DAILY omeprazole [Prilosec] 20 mg Capsule,Delayed Release(Dr/Ec) 20 mg PO DAILY furosemide 20 mg tablet 20 mg PO MOWEFR oxybutynin chloride [Ditropan] 5 mg Tablet 5 mg PO TID B-complex with vitamin C [Nephro-Damien] Tablet 1 tab PO DAILY Ensure Liquid 1 ea PO TID potassium chloride [K-Dur] 10 mEq Tablet,Er Particles/Crystals 10 meq PO DAILY mirtazapine 7.5 mg tablet 7.5 mg PO HS cholecalciferol (vitamin D3) [Vitamin D3] 125 mcg (5,000 unit) Tablet 62.5 mcg PO DAILY Referrals Referrals: CHELITA, [Primary Care Provider] -
[2021-12-24 11:45] LABS: Basophils # (auto) 0.03 K/uL (0-0.2); Basophils % (auto) 0.3 %; Eosinophils # (auto) 0.05 K/uL (0-0.50); Eosinophils % (auto) 0.6 %; Hematocrit (blood only) 29.5 % (34.1-44.9); Hemoglobin 9.5 g/dl (12.0-16.0); Immature Granulocytes # (auto) 0.03 K/uL (0.00-0.02); Immature Granulocytes % (auto) 0.3 %; Lymphocytes # (auto) 1.45 K/uL (1.2-3.4); Lymphocytes % (auto) 16.7 %; Mean Corpuscular Hemoglobin 32.2 pg (25.0-34.0); Mean Corpuscular Hgb Conc 32.2 g/dL (32.0-36.0); Mean Platelet Volume 9.7 fL (9.4-12.3); Monocytes # (auto) 0.68 K/uL (0.24-0.82); Monocytes % (auto) 7.8 %; Neutrophils # (auto) 6.46 K/uL (1.4-6.5); Neutrophils % (auto) 74.3 %; Platelet Count 218 K/uL (130-400); RDW Coefficient of Variation 14.2 % (11.5-14.5); RDW Standard Deviation 51.4 fL (36.4-46.3); Red Blood Count 2.95 M/uL (3.93-5.22)
[2021-12-24 11:48] LABS: INR 1.5 (0.9-1.1); Partial Thromboplastin Ratio 1.2; Prothrombin Time 16.1 Seconds (9.0-12.0)
[2021-12-24 11:59] LABS: Albumin Globulin Ratio 1.4 (0.9-2); Albumin Level 3.4 gm/dl (3.4-5.0); Bilirubin,Total 0.2 mg/dl (0.2-1.0); Calcium 8.6 mg/dl (8.5-10.1); Creatinine Clr Calc Pharmacy 36.8 ml/min; Est GFR (African American) 53.4 ml/min; Est GFR (Non-African American) 46.1 ml/min; Globulin 2.5 gm/dl (2.5-4.0); Potassium 4.3 mmol/L (3.5-5.1); Total Protein 5.9 gm/dl (6.0-8.3)
[2021-12-24 12:02] LABS: Troponin I High Sensitivity 9.7 pg/ml (0-14)
--- NOTE | 2021-12-24 13:56 | XRay Report ---
SINGLE VIEW CHEST CLINICAL HISTORY: Hip pain FINDINGS: An AP, portable, upright chest radiograph is compared to study dated 10/02/2021 and correlate d with chest CT dated 10/26/2009. The cardiomediastinal silhouette is unremarkable. The lungs and pleu ral spaces are clear. No pneumothorax is seen. The skeletal structures are osteopenic. The bony thora x is grossly intact. IMPRESSION: No active disease in the chest. ACT 112: Negative or not required by law. Electronically signed by: Tesfaye Zamora M.D. 12/24/2021 1:54 PM
--- NOTE | 2021-12-24 14:20 | XRay Report ---
XR hip LT 2V w pelvis CLINICAL HISTORY: Left hip pain. COMPARISON STUDY: Left hip CT 02/13/2021. Left hip radiograph 03/18/2013. FINDINGS: No fracture or dislocation within the pelvis or hips. Severe degenerative changes within th e bilateral hips. Moderate osteoarthritis within the bilateral sacroiliac joints. The sacrum appears intact. Vascular calcifications are noted. IMPRESSION: 1. No acute fracture or dislocation within the pelvis or hips. 2. Severe osteoarthritis within the bilateral hips. ACT 112: Negative or not required by law. Electronically signed by: Albert Eubanks M.D. 12/24/2021 2:19 PM
[2021-12-24] MEDS ORDERED: SODIUM CHLORIDE 0.9% 1000ML 500 ML IV ONE (14:48)
[2021-12-24] MEDS ORDERED: cefTRIAXone SODIUM 2,000 MG/70 ML BAG IV STA (14:49)
[2021-12-24 15:26] LABS: HCO3 VBG 13 mmol/L; Oxygen Saturation VBG 70.3 %; PCO2 VBG 28 mmHg (38-50); PO2 VBG 39 mmHg; pH VBG 7.28 (7.36-7.41)
[2021-12-24 16:58] LABS: Base Excess ABG -13.1 mEq/L (-9-1.8); HCO3 ABG 11 mmol/L (19-24); Oxygen Saturation ABG 98.3 % (90-95); PCO2 ABG 23 mmHg (35-46); PO2 ABG 115 mmHg (80-95)
--- NOTE | 2021-12-24 17:12 | History & Physical Report ---
Date of Service December 24, 2021 Assessment & Plan (1) Acute pain of left hip: Plan: Admit to [facility] with telemetry Patient presenting from [facility] with reports of acute on chronic left hip pain and inability to ambulate In the ED, hip and pelvis XR unremarkable for acute findings however does show significant osteoarthritis ? If patient would benefit from steroid injection --will consult Ortho, defer additional imaging PT/OT after Ortho eval (2) Metabolic acidosis: Plan: Labs show a non anion gap metabolic acidosis pH 7.30, PCO2 23, HCO3 11. Anion gap 7. Chloride 119 Check urine electrolytes Review of outpatient labs show decline of HCO3 and hyperchloremia since 09/2021. Creatinine has been stable/at baseline in the low 1s Noted the patient was also started on 3 times weekly Lasix in September. No reported GI losses with diarrhea recently. Nephrology consult (3) Elevated INR: Plan: INR 1.5 ? Due to vitamin K nutritional deficiency Will check RUQ US to evaluate for liver pathology (4) Confusion: Plan: Possibly multifactorial due to metabolic acidosis, uncontrolled pain, possible UTI, morphine received in ED Patient seem to be able to provide an adequate history however was not able to answer orientation questions appropriately. Per the staff at [facility], this is not her baseline. Noted normal ammonia level (5) CAD (coronary artery disease): Plan: Appears stable, no reports of chest pain Continue ASA, statin, beta-hayley (6) Ischemic cardiomyopathy: Plan: With normalization of EF Holding furosemide for now due to metabolic acidosis Volume status acceptable (7) Chronic anemia: Plan: Due to chronic renal insufficiency and possible underlying bone marrow disorder or MDS Patient has deferred bone marrow biopsy in the past Follows with hematology and nephrology, currently receiving Retacrit injections (8) CKD (chronic kidney disease), stage III: Plan: Baseline creatinine runs in the low 1s Creatinine 1.25 today Monitor renal functions (9) Hypertension: Plan: BP controlled, continue lisinopril and carvedilol (10) DVT prophylaxis: Plan: SCDs due to elevated INR History of Present Illness Chief Complaint: Left hip pain Primary Care Provider: [place] 61-year-old female with PMH CAD, ischemic cardiomyopathy with normalization of EF, HTN, CKD stage III, chronic anemia, and other problems listed below who presents the ED for evaluation of left hip pain. Patient reports she has had chronic hip pain for the past few years however pain acutely worsened yesterday. Patient reports she has been doing some more walking outside recently. Pain progressed to the point today where she was unable to bear weight. Patient denies fall or injury to the left hip. Patient was able to provide an adequate history however when asked orientation questions, she was only oriented to self. I discussed with the staff at [facility] who state that this is not normal for her. Patient denies any other associated symptoms. Reports she has otherwise been feeling well recently. No chest pain or shortness of breath. Denies lightheadedness, dizziness, diaphoresis, syncopal events. No abdominal pain, nausea, vomiting, diarrhea. Denies urinary symptoms. In the ED, hip and pelvis XR are unremarkable for acute findings. Labs show Hgb 9.5, which is chronic for the patient. Labs also demonstrate a metabolic acidosis with pH 7.3, HCO3 11, with normal anion gap. Patient was given a dose of IV ceftriaxone for possible UTI. She was also given IVF, IV morphine, IV Zofran. Allergies Allergy/AdvReac Type Severity Reaction Status Date / Time No Known Allergies Allergy NONE Verified 12/24/21 15:10 Home Medications Medication Instructions Recorded Confirmed Type B-complex with vitamin C 1 tab PO DAILY 12/24/21 12/24/21 History acetaminophen 325 mg tablet 650 mg PO Q6 PRN .LEFT HIP PAIN 12/24/21 12/24/21 History (Tylenol) acetaminophen 500 mg tablet 500 mg PO Q4 PRN .PAIN MAX 12/24/21 12/24/21 History (Tylenol Extra Strength) aspirin 81 mg tablet,delayed 81 mg PO DAILY 12/24/21 12/24/21 History release atorvastatin 40 mg tablet 40 mg PO DAILY 12/24/21 12/24/21 History calcium carbonate 200 mg calcium 500 mg PO DAILY 12/24/21 12/24/21 History (500 mg) chewable tablet (Calcium Antacid) calcium polycarbophil 625 mg 625 mg PO QID 12/24/21 12/24/21 History tablet (FiberCon) carvedilol 6.25 mg tablet 6.25 mg PO AMHS 12/24/21 12/24/21 History cholecalciferol (vitamin D3) 125 62.5 mcg PO DAILY 12/24/21 12/24/21 History mcg (5,000 unit) tablet (Vitamin D3) cyanocobalamin (vitamin B-12) 1,000 mcg PO DAILY 12/24/21 12/24/21 History 1,000 mcg tablet (Vitamin B-12) food supplemt, lactose-reduced 1 ea PO TID 12/24/21 12/24/21 History (Ensure oral liquid) furosemide 20 mg tablet 20 mg PO MOWEFR 12/24/21 12/24/21 History lisinopril 30 mg tablet 30 mg PO DAILY 12/24/21 12/24/21 History loperamide 2 mg capsule 2 mg PO QID PRN Diarrhea 12/24/21 12/24/21 History mirtazapine 7.5 mg tablet 7.5 mg PO HS 12/24/21 12/24/21 History omeprazole 20 mg capsule,delayed 20 mg PO DAILY 12/24/21 12/24/21 History release ondansetron HCl 4 mg tablet 4 mg PO Q6 PRN Nausea 12/24/21 12/24/21 History oxybutynin chloride 5 mg tablet 5 mg PO TID 12/24/21 12/24/21 History potassium chloride 10 mEq 10 meq PO DAILY 12/24/21 12/24/21 History tablet,extended release(part/cryst) Past Med/Surg History Medical History CAD (coronary artery disease) NSTEMI s/p MARYBETH to [facility] 10/2008. Chronic RCA occlusion with adequate collaterals. Chronic anemia CKD (chronic kidney disease), stage III Hypertension Ischemic cardiomyopathy With normalization of EF Surgical History No significant past surgical history Family History Other Medical history non-contributory Social History Smoking Status: Never smoker Hx Alcohol Use: No Hx Substance Use: No Preferred Language: Bengali Communication Ability: Effective Engineering Design Supervisor Required: No Beliefs That Will Affect Care: None marital status: Current Living Situation: Long-Term Feels Safe at Home: Yes Assistive Devices: Walker Review of Systems Review of Systems: ROS per HPI, all other systems reviewed and negative Physical Exam Constitutional: WD/WN, vitals as above Eyes: PERRL, conjunctivae normal, anicteric sclerae ENMT: external ear and nose normal, oropharynx normal Respiratory: normal respiratory effort, lungs clear to auscultation Cardiovascular: Rate/Rhythm: regular rate and regular rhythm Vessels: normal peripheral pulses Extremities: no edema Gastrointestinal (Abdomen): normal bowel sounds, soft, nontender, no hepatosplenomegaly Musculoskeletal: Extremities: no cyanosis and no clubbing Left hip tender to palpation, patient reports significant left hip pain with minimal movement of left leg Skin: no rashes, warm and dry Neurologic: PERRL, EOMI, accommodation nl, no face palsy, no dysarthria Psychiatric: Orientation: alert and oriented to person; + not oriented to place and + not oriented to time Results & Data Results & Data ([facility]) Vital Signs (Past 12 Hours) Vital Signs Temp Pulse Pulse Resp BP BP Pulse Ox 12/24/21 16:30 88 15 100 12/24/21 16:30 161/75 H 12/24/21 16:00 94 H 16 99 12/24/21 16:00 182/68 H 12/24/21 15:43 85 20 98 12/24/21 13:49 77 18 95 12/24/21 11:35 100 12/24/21 10:25 80 18 133/65 100 12/24/21 10:25 36.6 C 83 16 166/60 H 96 O2 Del Method 12/24/21 16:30 12/24/21 16:30 12/24/21 16:00 12/24/21 16:00 12/24/21 15:43 Room Air 12/24/21 13:49 12/24/21 11:35 Room Air 12/24/21 10:25 Room Air 12/24/21 10:25 Room Air Laboratory Results Short CBC 12/24/21 Range/Units 11:17 WBC 8.70 (4.8-10.8) K/ul Hgb 9.5 L (12.0-16.0) g/dl Hct 29.5 L (34.1-44.9) % Plt Count 218 (130-400) K/uL BMP 12/24/21 11:17 Sodium 139 Potassium 4.3 Chloride 119 H Carbon Dioxide 13 L BUN 20 Creatinine 1.25 H Glucose 99 Calcium 8.6 Liver Function 12/24/21 Range/Units 11:17 Total Bilirubin 0.2 (0.2-1.0) mg/dl AST 20 (13-39) U/L ALT 19 (7-52) U/L Alkaline Phosphatase 127 H (34-104) U/L Albumin 3.4 (3.4-5.0) gm/dl Diagnostic Findings Hip/Pelvis X-Ray 12/24/21 10:37 XR hip LT 2V w pelvis CLINICAL HISTORY: Left hip pain. COMPARISON STUDY: Left hip CT 02/13/2021. Left hip radiograph 03/18/2013. FINDINGS: No fracture or dislocation within the pelvis or hips. Severe degenerative changes within the bilateral hips. Moderate osteoarthritis within the bilateral sacroiliac joints. The sacrum appears intact. Vascular calcifications are noted. IMPRESSION: 1. No acute fracture or dislocation within the pelvis or hips. 2. Severe osteoarthritis within the bilateral hips. ACT 112: Negative or not required by law. Electronically signed by: Albert Eubanks M.D. 12/24/2021 2:19 PM Chest X-Ray 12/24/21 11:03 SINGLE VIEW CHEST CLINICAL HISTORY: Hip pain FINDINGS: An AP, portable, upright chest radiograph is compared to study dated 10/02/2021 and correlated with chest CT dated 10/26/2009. The cardiomediastinal silhouette is unremarkable. The lungs and pleural spaces are clear. No p neumothorax is seen. The skeletal structures are osteopenic. The bony thorax is grossly intact. IMPRESSION: No active disease in the chest. ACT 112: Negative or not required by law. Electronically signed by: Tesfaye Zamora M.D. 12/24/2021 1:54 PM Code Status & VTE Plan VTE Prophylaxis Plan VTE Prophylaxis will be ordered: Yes Supervising Physician Co-Signing Physician Notes 61-year-old lady with mild intellectual disability per patient's sister who is also POA was seen and examined at bedside for her left hip pain which is ongoing for last couple of month per patient and reports it is situational rather than pain at all the time. Per her sister, the pain has been going on for a long time. Patient is from [facility]. Patient denies any fever/chills/cough/chest pain/breast pain/other review of symptoms. Patient denies any use of tobacco/smoking tobacco/alcohol/recreational drugs. Patient was oriented times place and situation. Will consult orthopedics for left hip pain and possible need for steroid injection given severe OA on hip x-ray at presentation. Admitting CXR reviewed and WNL. Admitting labs fairly WNL except for non-anion gap metabolic acidosis, patient is stable, nephrology consult. Per patient sister, patient is not oriented at baseline hence it is not confusing whether it is her baseline at presentation. Upon examination: Patient on room air, oriented x2, heart/lung/abdomen examination WNL, left hip nontender. Rest of the examination as above. I have seen and examined the patient and have discussed the case with the provider above. I agree with the assessment and plan as stated.
[2021-12-24 17:23] LABS: BUN Creatinine Ratio 15.7 (10-20); Calcium 7.8 mg/dl (8.5-10.1); Est GFR (African American) 59.1 ml/min
[2021-12-24] MEDS: carvediloL 6.25 MG TAB PO SCH (22:02)
[2021-12-24] MEDS: OXYBUTYNIN CHLORIDE 5 MG TAB PO SCH (22:03)
[2021-12-24] MEDS: MIRTAZAPINE TAB 15 MG TAB PO SCH (22:03)
[2021-12-25] MEDS ORDERED: FLUARIX QUADRIVALENT 0.5 ML SYR IM ONE (00:16)
[2021-12-25 06:29] LABS: Hematocrit (blood only) 26.1 % (34.1-44.9); Hemoglobin 8.4 g/dl (12.0-16.0); Mean Corpuscular Hemoglobin 31.7 pg (25.0-34.0); Mean Corpuscular Hgb Conc 32.2 g/dL (32.0-36.0); Mean Corpuscular Volume 98.5 fL (80.0-100.0); Mean Platelet Volume 10.2 fL (9.4-12.3); Platelet Count 194 K/uL (130-400); RDW Coefficient of Variation 14.3 % (11.5-14.5); RDW Standard Deviation 51.2 fL (36.4-46.3); Red Blood Count 2.65 M/uL (3.93-5.22); White Blood Count 6.93 K/ul (4.8-10.8)
[2021-12-25 06:41] LABS: INR 1.7 (0.9-1.1); Prothrombin Time 17.8 Seconds (9.0-12.0)
[2021-12-25 06:55] LABS: Appearance Urine Turbid (Clear); Bacteria Urine Automated Negative (Negative); Bilirubin Urine Negative (Negative); Blood Urine 2+ (Negative); Color Urine Yellow; Epithelial Cell Urine Auto >30 /lpf (0-5); Glucose Urine UA Negative (Negative); Ketones Urine Negative (Negative); Leukocyte Esterase Urine 3+ (Negative); Nitrite Urine Negative (Negative); Protein Urine Trace (Negative); RBC Urine Automated 0-4 /hpf (0-4); Specific Gravity Urine 1.012 (1.000-1.030); Urobilinogen Urine Negative (Negative); WBC Urine Automated >30 /hpf (0-5); pH Urine 5.5 (4.5-7.5)
[2021-12-25 07:01] LABS: BUN Creatinine Ratio 15.5 (10-20); Calcium 8.1 mg/dl (8.5-10.1); Creatinine Clr Calc Pharmacy 41.7 ml/min; Est GFR (African American) 62.3 ml/min; Est GFR (Non-African American) 53.8 ml/min; Potassium 4.2 mmol/L (3.5-5.1)
--- NOTE | 2021-12-25 07:25 | Ultrasound Report ---
US liver HISTORY: 61 years-old Female coagulopathy COMPARISON: Renal ultrasound 12/25/2015, CT abdomen and pelvis 10/12/2014 TECHNIQUE: Multiple real-time sonographic images of the abdominal right upper quadrant were obtained assessing grayscale appearance and color flow FINDINGS: Visualized pancreas is unremarkable. The liver is within normal limits. There are a few echogenic non shadowing foci within the gallbladder lumen. No gallbladder wall thickening or pericholecystic fluid. Negative sonographic Wade's sign. Normal common bile duct, 3 mm. Mild cortical thinning of the right kidney without hydronephrosis. IMPRESSION: 1. Mild sludge versus nonshadowing cholelithiasis. No sonographic evidence of acute cholecystitis. 2. No biliary ductal dilation. ACT 112: Negative or not required by law. The above report was generated using voice recognition software. It may contain grammatical, syntax o r spelling errors. Electronically signed by: Parish Karimi M.D. 12/25/2021 7:24 AM
[2021-12-25] MEDS: PANTOprazole 40 MG TAB PO SCH (08:54)
[2021-12-25] MEDS: lisinopril 10 MG TAB PO SCH (08:54)
[2021-12-25] MEDS: OXYBUTYNIN CHLORIDE 5 MG TAB PO SCH ×3 (08:54→20:43)
[2021-12-25] MEDS: ATORVASTATIN 40 MG TAB PO SCH (08:55)
[2021-12-25] MEDS: ASPIRIN 81 MG ECTAB PO SCH (08:55)
[2021-12-25] MEDS: carvediloL 6.25 MG TAB PO SCH ×2 (08:55→20:43)
--- NOTE | 2021-12-25 09:24 | Nephrology Consultation ---
Date of Consultation December 25, 2021 Assessment & Plan (1) Acid-base disorder, mixed: She has likley respiratory alkalosis with NAGMA and AGMA - Likley 2/ chronic pain/ diarrhea and CKD.There was an element of volume depletion giving this overall acid base picture. - URBAN has resolved with Normal saline , but her hyperchloremia has worsened as expected after being given chloride based fluids. Please DO NOT use normal saline for fluid resuscitation. - use isotonic , isolyte p - Control pain to prevent hyperventilation. - She needs to take her medication as prescribed, Its difficult to point to a cause to the acid base disorder if not sure what she is taking. (2) Arthritis pain, hip: (3) URBAN (acute kidney injury): History of Present Illness Reason for Consultation: CKD,NAGMA Attending Physician: Linda Temple MD History of Present Illness 61-year-old female withe PMH CAD, s/p stents; hypertension; HFrEF, (but as per echo in April 2021 normal EF), GI bleed; IBDwith diarrhea; history of electrolyte and fluid disorder,, h/o non complianve with medicationsCKD,stage III( Baseline sCR early 1.0's) ,history of nocturnal enuresis , with chronic Anemia. She presented to the ER with worsening hip pain, and inability to bear weight on the left side. In the ED, hip and pelvis XR are unremarkable for acute findings. Labs show Hgb 9.5, which is chronic for the patient.ABG and labs showed mixed NAGMA and AGMA with respiratory alkalosis( likley chronic).She has a problem of chronic diarrhea and has been non compliant with medication in the past. Patient was given a dose of IV ceftriaxone for possible UTI. She was also given IVF, IV morphine, IV Zofran SCr marginally above the baseline which resolved with 1.5 lit of normal saline. She has intellectual disability and is normaly confused at baseline,but appeared comfortable on exam.Patient denies any fever/chills/cough/chest pain/breast pain /other review of symptoms. Allergies Allergy/AdvReac Type Severity Reaction Status Date / Time No Known Allergies Allergy NONE Verified 12/24/21 15:10 Home Medications Medication Instructions Recorded Confirmed Type B-complex with vitamin C 1 tab PO DAILY 12/24/21 12/24/21 History acetaminophen 325 mg tablet 650 mg PO Q6 PRN .LEFT HIP PAIN 12/24/21 12/24/21 History (Tylenol) acetaminophen 500 mg tablet 500 mg PO Q4 PRN .PAIN MAX 12/24/21 12/24/21 History (Tylenol Extra Strength) aspirin 81 mg tablet,delayed 81 mg PO DAILY 12/24/21 12/24/21 History release atorvastatin 40 mg tablet 40 mg PO DAILY 12/24/21 12/24/21 History calcium carbonate 200 mg calcium 500 mg PO DAILY 12/24/21 12/24/21 History (500 mg) chewable tablet (Calcium Antacid) calcium polycarbophil 625 mg 625 mg PO QID 12/24/21 12/24/21 History tablet (FiberCon) carvedilol 6.25 mg tablet 6.25 mg PO AMHS 12/24/21 12/24/21 History cholecalciferol (vitamin D3) 125 62.5 mcg PO DAILY 12/24/21 12/24/21 History mcg (5,000 unit) tablet (Vitamin D3) cyanocobalamin (vitamin B-12) 1,000 mcg PO DAILY 12/24/21 12/24/21 History 1,000 mcg tablet (Vitamin B-12) food supplemt, lactose-reduced 1 ea PO TID 12/24/21 12/24/21 History (Ensure oral liquid) furosemide 20 mg tablet 20 mg PO MOWEFR 12/24/21 12/24/21 History lisinopril 30 mg tablet 30 mg PO DAILY 12/24/21 12/24/21 History loperamide 2 mg capsule 2 mg PO QID PRN Diarrhea 12/24/21 12/24/21 History mirtazapine 7.5 mg tablet 7.5 mg PO HS 12/24/21 12/24/21 History omeprazole 20 mg capsule,delayed 20 mg PO DAILY 12/24/21 12/24/21 History release ondansetron HCl 4 mg tablet 4 mg PO Q6 PRN Nausea 12/24/21 12/24/21 History oxybutynin chloride 5 mg tablet 5 mg PO TID 12/24/21 12/24/21 History potassium chloride 10 mEq 10 meq PO DAILY 12/24/21 12/24/21 History tablet,extended release(part/cryst) Patient History Medical History CAD (coronary artery disease) NSTEMI s/p MARYBETH to [facility] 10/2008. Chronic RCA occlusion with adequate col laterals. Chronic anemia CKD (chronic kidney disease), stage III Hypertension Ischemic cardiomyopathy With normalization of EF Surgical History No significant past surgical history Family History Other Medical history non-contributory Social History Smoking Status: Never smoker Hx Alcohol Use: No Hx Substance Use: No Preferred Language: [place] Citizen Communication Ability: Effective Director Of Critical Care Required: No Beliefs That Will Affect Care: None marital status: Current Living Situation: [facility] Feels Safe at Home: Yes Safety Concerns: Feels Safe At This Time Assistive Devices: Glasses and Walker Review of Systems 2 Review of Systems: Other Patient denies any fever/chills/cough/chest pain/breast pain. Physical Exam Physical Exam: GENERAL: The patient is thin and frail, not in acute distress. HEENT: Pupils equal, round and reactive to light. Oral mucosa moist. NECK: No JVD, no neck masses. CARDIOVASCULAR: S1 and S2 heard. Regular rate and rhythm. No murmur, no gallop. RESPIRATORY SYSTEM: Normal AP diameter. No accessory muscle use. No wheezing or crackles. ABDOMEN: Soft, bowel sounds present, nontender, no distention. CENTRAL NERVOUS SYSTEM:Intermittently confused EXTREMITIES: No edema Results & Data ([facility]) Vital Signs (Past 12 Hours) Vital Signs Temp Pulse Pulse Pulse Resp BP Pulse Ox 12/25/21 07:24 70 12/25/21 07:00 36.8 C 70 18 135/61 100 12/25/21 00:00 81 12/25/21 04:00 36.8 C 72 18 126/52 L 98 12/24/21 23:04 36.9 C 91 H 14 159/70 H 100 O2 Del Method 12/25/21 07:24 12/25/21 07:00 Room Air 12/25/21 00:00 12/25/21 04:00 Room Air 12/24/21 23:04 Room Air Laboratory Results 12/25/21 05:41 12/25/21 05:41
--- NOTE | 2021-12-25 11:52 | Orthopedic Consultation ---
Date of Consultation December 25, 2021 Assessment & Plan (1) Osteoarthritis of left hip: Severe osteoarthritis left hip. X-rays reviewed by myself. I have been discussing the case with Dr. Augustin. He will review the x-rays as well. With the patient's history of CKD and current nephrology consult reviewed, will discuss possible anti-inflammatory use with medicine service. If unable to use nonsteroidal anti-inflammatories, then possibly question use of low-dose steroids to help initially with her pain. I have discussed her past medical history with her power of collections attorney, Abeba Parikh, who states that the patient's mother used to take care of all of her medical issues and then suddenly leaving her power of collections attorney with very little information. There was some history or question of intra-articular injections or some type of steroid injection for the hip in the past, but she is unsure of this and is unsure if it was intra-articular or lateral hip injection for bursitis, or if they even ever happened. I currently cannot find in the old records in the EMR if she had any type of steroid injection. Multiple left hip pain and x-rays were done in the past but nothing listed surgically and or ordered for injection. After discussing this in detail with the patient's power of collections attorney, we will discuss anti-inflammatory use with Dr. Temple. Patient's power of collections attorney is agreeable to try an intra-articular injection scheduled as an outpatient in the near future. At that point time we will know whether it will be working or not and also if a total hip arthroplasty would be in her future. Her power of collections attorney is concerned with her ability to understand a total hip arthroplasty and the rehab and precautions to go with it. Dr. Augustin will review films later today and provide any further input. History of Present Illness Reason for Consultation: Left hip pain. Attending Physician: Linda Temple MD History of Present Illness 61-year-old female with PMH CAD, ischemic cardiomyopathy with normalization of EF, HTN, CKD stage III, chronic anemia,came to the emergency room yesterday with complaints of left hip pain. Patient has a longstanding history of osteoarthritis of her left hip and left hip pain. However the patient began having increased difficulty with weightbearing. The patient resides at the [facility]. It was decided to bring him to the emergency room to be evaluated. X-rays were taken of the left hip. No fractures were identified however severe osteoarthritis was noted. Patient was also noted to be somewhat confused which the [place] stated that was not her normal.She was admitted by [facility] service for metabolic acidosis, acute left hip pain, left elevated INR, and confusion. We have been asked to see her for her left hip osteoarthritis. Currently the patient is lying in bed. She is awake and alert. She answers my questions appropriately. She is following commands. She states that she has had the pain in her hip for quite a long time and was hoping to have something done about it. She apparently has had injections in the past of the hip but when I questioned her about it she feels that they were the lateral hip injections for likely bursitis rather than an intra-articular hip injection. She does not remember who did the injections or what physician had ordered them. She has no other complaints at this time. Allergies Allergy/AdvReac Type Severity Reaction Status Date / Time No Known Allergies Allergy NONE Verified 12/24/21 15:10 Home Medications Medication Instructions Recorded Confirmed Type B-complex with vitamin C 1 tab PO DAILY 12/24/21 12/24/21 History acetaminophen 325 mg tablet 650 mg PO Q6 PRN .LEFT HIP PAIN 12/24/21 12/24/21 History (Tylenol) acetaminophen 500 mg tablet 500 mg PO Q4 PRN .PAIN MAX 12/24/21 12/24/21 History (Tylenol Extra Strength) aspirin 81 mg tablet,delayed 81 mg PO DAILY 12/24/21 12/24/21 History release atorvastatin 40 mg tablet 40 mg PO DAILY 12/24/21 12/24/21 History calcium carbonate 200 mg calcium 500 mg PO DAILY 12/24/21 12/24/21 History (500 mg) chewable tablet (Calcium Antacid) calcium polycarbophil 625 mg 625 mg PO QID 12/24/21 12/24/21 History tablet (FiberCon) carvedilol 6.25 mg tablet 6.25 mg PO AMHS 12/24/21 12/24/21 History cholecalciferol (vitamin D3) 125 62.5 mcg PO DAILY 12/24/21 12/24/21 History mcg (5,000 unit) tablet (Vitamin D3) cyanocobalamin (vitamin B-12) 1,000 mcg PO DAILY 12/24/21 12/24/21 History 1,000 mcg tablet (Vitamin B-12) food supplemt, lactose-reduced 1 ea PO TID 12/24/21 12/24/21 History (Ensure oral liquid) furosemide 20 mg tablet 20 mg PO MOWEFR 12/24/21 12/24/21 History lisinopril 30 mg tablet 30 mg PO DAILY 12/24/21 12/24/21 History loperamide 2 mg capsule 2 mg PO QID PRN Diarrhea 12/24/21 12/24/21 History mirtazapine 7.5 mg tablet 7.5 mg PO HS 12/24/21 12/24/21 History omeprazole 20 mg capsule,delayed 20 mg PO DAILY 12/24/21 12/24/21 History release ondansetron HCl 4 mg tablet 4 mg PO Q6 PRN Nausea 12/24/21 12/24/21 History oxybutynin chloride 5 mg tablet 5 mg PO TID 12/24/21 12/24/21 History potassium chloride 10 mEq 10 meq PO DAILY 12/24/21 12/24/21 History tablet,extended release(part/cryst) Patient History Medical History CAD (coronary artery disease) NSTEMI s/p MARYBETH to LAD 10/2008. Chronic RCA occlusion with adequate collaterals. Chronic anemia CKD (chronic kidney disease), stage III Hypertension Ischemic cardiomyopathy With normalization of EF Surgical History No significant past surgical history Family History Other Medical history non-contributory Social History Smoking Status: Never smoker Hx Alcohol Use: No Hx Substance Use: No Preferred Language: Tristanian Communication Ability: Effective Segment Producer Required: No Beliefs That Will Affect Care: None marital status: Current Living Situation: Custodial Feels Safe at Home: Yes Safety Concerns: Feels Safe At This Time Assistive Devices: Glasses and Walker Physical Exam Physical Exam: On examination, the patient is a 61-year-old, thin, white female. Oriented to person and place. No acute distress. Pleasant cooperative. Currently she is lying on the bed with both of her hips flexed to approximately 90 degrees. She states that the left hip feels comfortable at this point in time. She has no noted erythema over the lateral hip itself. There is no swelling. Palpation of the left lateral hip over the greater trochanter does not produce pain. She describes her pain in the groin radiating down to her knee. Patient is able to extend the hip but not full extension. She gets to a point of about 20 degrees of flexion and stops secondary to pain. She is then able to flex the hip back up to 90+ degrees without that same pain. She has pain with adduction and abduction. Mild pain with internal and external rotation. She denies any knee pain on palpation and is able to go through range of motion of her left knee without difficulty. She has no pain in her left ankle or toes. And has good range of motion. Right lower extremity is unaffected at this time and she has good range of motion of her hip, knee, ankle. No complaints of upper extremity issues. She denies any radiculopathy or shooting pains down into the foot on the left extremity. There is no gross motor or sensory loss at this time. Results & Data ([facility]) Vital Signs (Past 12 Hours) Vital Signs Temp Pulse Pulse Resp BP Pulse Ox O2 Del Method 12/25/21 11:46 36.9 C 72 16 145/64 H 99 Room Air 12/25/21 07:24 70 12/25/21 07:00 36.8 C 70 18 135/61 100 Room Air 12/25/21 00:00 81 12/25/21 04:00 36.8 C 72 18 126/52 L 98 Room Air Diagnostic Findings Patient:DEXTER ABARCA Admit Date:12/24/21 MR#:[id number] Address[address] Acct ID:[id number] Address2: Date:1960 [facility] Zip:[place] [address] Age:61 Location:ED Sex:F Room/Bed: Att Phy: Diagnosis:HIP PAIN [place] Phy:[facility] Date:12/24/21 [facility] Phy: Interpreting Phy:Albert Eubanks MDAdmit Phy: Ordering Phy:Tesfaye Alba M.D. cc: ~ XR hip LT 2V w pelvis CLINICAL HISTORY: Left hip pain. COMPARISON STUDY: Left hip CT 02/13/2021. Left hip radiograph 03/18/2013. FINDINGS: No fracture or dislocation within the pelvis or hips. Severe degenerative changes within the bilateral hips. Moderate osteoarthritis within the bilateral sacroiliac joints. The sacrum appears intact. Vascular calcifications are noted. IMPRESSION: 1. No acute fracture or dislocation within the pelvis or hips. 2. Severe osteoarthritis within the bilateral hips.
[2021-12-25] MEDS ORDERED: DICLOFENAC SOD 1% GEL 100 GM TUBE EXT PRN (13:53)
--- NOTE | 2021-12-25 14:14 | Hospitalist Progress Note ---
Date of Service December 25, 2021 Assessment & Plan (1) Osteoarthritis of left hip: Plan (1) Acute pain of left hip: Plan: Patient presenting from [facility] with reports of acute on chronic left hip pain and inability to ambulate In the ED, hip and pelvis XR unremarkable for acute findings however does show significant osteoarthritis Ortho was consulted and recommended MRI left hip. Discussed with Ortho 12/25 discussed with patient's POA for possible outpatient intra-articular injection in near future. PT/OT when able. For now Voltaren gel. NSAIDs or low-dose steroid for pain control once FOBT is out and negative. (2) Metabolic acidosis: Plan: Admitting labs show a non anion gap metabolic acidosis Admitting: pH 7.30, PCO2 23, HCO3 11. Anion gap 7. Chloride 119 Nephrology on board, likely respiratory alkalosis with NAGMA and AGMA. Likely secondary to chronic diarrhea that she has been having for many years per patient's Sister Abeba. Patient does not appear to be in respiratory distress and respiratory rate below 20. Review of outpatient labs show decline of HCO3 and hyperchloremia since 09/2021. Creatinine has been stable/at baseline in the low 1s. Today chemistry slightly worsened likely secondary to her hyperchloremia being worsened with NSS resuscitation in the ED. Avoid NSS, can use Isolyte P if needed. Appreciate nephrology recommendation, labs in AM. #. Hb dropping: Hemoglobin 10.3 at presentation, 8.4 today, likely dilutional component. Monitor H&H daily or as needed. Patient has no bowel movement per RN. FOBT ordered, await. (3) Elevated INR: Plan: INR 1.5, albumin is normal. Other liver enzymes fairly better. ? Due to vitamin K nutritional deficiency likely secondary to chronic diarrhea. RUQ US not impressive. Continue to monitor INR, will give vitamin K today. (4) mild intellectual disability: Patient is not oriented at baseline per patient's POA Abeba. She is [facility]. (5) CAD (coronary artery disease): Plan: Appears stable, no reports of chest pain Continue ASA, statin, beta-hayley (6) Ischemic cardiomyopathy: Plan: With normalization of EF Holding furosemide for now due to metabolic acidosis Volume status acceptable (7) Chronic anemia: Plan: Due to chronic renal insufficiency and possible underlying bone marrow disorder or MDS Patient has deferred bone marrow biopsy in the past Follows with hematology and nephrology, currently receiving Retacrit injections (8) CKD (chronic kidney disease), stage III: Plan: Baseline creatinine runs in the low 1s Creatinine 1.25 today Monitor renal functions (9) Hypertension: Plan: BP controlled, continue lisinopril and carvedilol (10) DVT prophylaxis: Plan: SCDs due to elevated INR Patient's POA and Sister Abeba was called and given update. Answered all her questions. Admission and Anticipated Discharge Date Admission Date: December 24, 2021 Subjective Patient seen and examined at bedside for follow-up of acute pain of left hip, metabolic acidosis and likely UTI. Patient was lying in bed, alert but not oriented, reports no new acute events overnight, reports pain at left hip under control, denies headache or dizziness or sore throat or cough or other review of symptoms. Patient reports eating okay. Patient is NAD and on room air. Physical Exam Physical Exam: GENERAL: Alert and awake, not oriented. NAD, on RA. HEENT: No pallor, no icterus. Pupils equal, round and reactive to light. Oral mucosa moist. NECK: No JVD, no neck masses. HEART: S1 and S2 heard. Regular rate and rhythm. No murmur, no gallop. RESPIRATORY SYSTEM: Normal AP diameter. No accessory muscle use. No wheezing, no crackles. ABDOMEN: Soft, bowel sounds present, nontender, no distention. CENTRAL NERVOUS SYSTEM: No facial droop. Speech is clear. Obeys simple commands. Moves extremities. EXTREMITIES: No edema, no erythema seen. Results & Data Results & Data ([facility]) Vital Signs (Past 12 Hours) Vital Signs Temp Pulse Pulse Resp BP Pulse Ox O2 Del Method 12/25/21 11:46 36.9 C 72 16 145/64 H 99 Room Air 12/25/21 07:24 70 12/25/21 07:00 36.8 C 70 18 135/61 100 Room Air 12/25/21 04:00 36.8 C 72 18 126/52 L 98 Room Air
[2021-12-25] MEDS ORDERED: PHYTONADIONE 5 MG TAB PO STA (14:15)
[2021-12-25] MEDS: ACETAMINOPHEN 325 MG TAB PO PRN (17:03)
[2021-12-25] MEDS: CEFDINIR 300 MG CAP PO SCH (20:43)
[2021-12-25] MEDS: MIRTAZAPINE TAB 15 MG TAB PO SCH (20:43)
[2021-12-25] MEDS ORDERED: oxyCODONE HCL IR 5 MG TAB (IMMEDIATE RELEASE) PO STA (22:43)
[2021-12-26 07:27] LABS: Hematocrit (blood only) 26.7 % (34.1-44.9); Hemoglobin 8.6 g/dl (12.0-16.0); Mean Corpuscular Hemoglobin 31.6 pg (25.0-34.0); Mean Corpuscular Hgb Conc 32.2 g/dL (32.0-36.0); Mean Corpuscular Volume 98.2 fL (80.0-100.0); Mean Platelet Volume 10.2 fL (9.4-12.3); Platelet Count 189 K/uL (130-400); RDW Coefficient of Variation 14.6 % (11.5-14.5); RDW Standard Deviation 51.8 fL (36.4-46.3); Red Blood Count 2.72 M/uL (3.93-5.22); White Blood Count 6.07 K/ul (4.8-10.8)
[2021-12-26] MEDS: carvediloL 6.25 MG TAB PO SCH (07:52)
[2021-12-26] MEDS: PANTOprazole 40 MG TAB PO SCH (07:52)
[2021-12-26] MEDS: OXYBUTYNIN CHLORIDE 5 MG TAB PO SCH ×2 (07:52→13:50)
[2021-12-26] MEDS: ATORVASTATIN 40 MG TAB PO SCH (07:52)
[2021-12-26] MEDS: lisinopril 10 MG TAB PO SCH (07:52)
[2021-12-26] MEDS: ASPIRIN 81 MG ECTAB PO SCH (07:52)
[2021-12-26] MEDS: CEFDINIR 300 MG CAP PO SCH (07:53)
[2021-12-26 08:00] LABS: Albumin Globulin Ratio 1.5 (0.9-2); Albumin Level 3.1 gm/dl (3.4-5.0); BUN Creatinine Ratio 16.9 (10-20); Bilirubin,Total 0.3 mg/dl (0.2-1.0); Creatinine Clr Calc Pharmacy 38.9 ml/min; Est GFR (African American) 57.2 ml/min; Est GFR (Non-African American) 49.4 ml/min; Globulin 2.1 gm/dl (2.5-4.0); Magnesium 1.6 mg/dl (1.7-2.4); Potassium 4.1 mmol/L (3.5-5.1); Total Protein 5.2 gm/dl (6.0-8.3)
--- NOTE | 2021-12-26 09:30 | Magnetic Resonance Report ---
MR hip LT wo con HISTORY: Left hip pain. TECHNIQUE: Multiplanar multisequence MRI of the pelvis and left hip were performed without contrast a ccording to standard departmental protocol. COMPARISON STUDY: Pelvis and left hip radiograph 12/24/2021. Left hip CT 02/13/2021. FINDINGS: No acute fracture or dislocation within the pelvis or hips. Mild subchondral marrow edema w ithin the bilateral acetabula which is likely related to the degenerative change. There are large mar ginal osteophytes within the bilateral hips with persistent bony overgrowth of the acetabula consiste nt with degenerative change. There is moderate to severe left and moderate right cartilage space narr owing within the bilateral hips. Trace bilateral joint effusions which are symmetric. Mild soft tissu e edema adjacent to the bilateral hips is likely due to the chronic degenerative change. No evidence for trochanteric bursitis. The bladder and uterus are unremarkable. No pelvic free fluid. Irregularit y of the bilateral superior labrums consistent with chronic tears. IMPRESSION: 1. No acute fracture or dislocation within the pelvis or hips. 2. Moderate to severe bilateral hip osteoporosis most pronounced on the left. This is similar to the prior study. 3. Trace bilateral hip effusions which is likely related to the chronic degenerative change. 4. Irregularity of the bilateral superior labrums likely representing chronic tears. ACT 112: Negative or not required by law. Electronically signed by: Albert Eubanks M.D. 12/26/2021 9:27 AM
[2021-12-26] MEDS: ACETAMINOPHEN 325 MG TAB PO PRN (14:40)
--- NOTE | 2021-12-26 14:52 | Discharge Summary ---
Date of Service December 26, 2021 Admission HPI Per Admitting Provider 61-year-old female with PMH CAD, ischemic cardiomyopathy with normalization of EF, HTN, CKD stage III, chronic anemia, and other problems listed below who presents the ED for evaluation of left hip pain. Patient reports she has had chronic hip pain for the past few years however pain acutely worsened yesterday. Patient reports she has been doing some more walking outside recently. Pain progressed to the point today where she was unable to bear weight. Patient denies fall or injury to the left hip. Patient was able to provide an adequate history however when asked orientation questions, she was only oriented to self. I discussed with the staff at the [facility] who state that this is not normal for her. Patient denies any other associated symptoms. Reports she has otherwise been feeling well recently. No chest pain or shortness of breath. Denies lightheadedness, dizziness, diaphoresis, syncopal events. No abdominal pain, nausea, vomiting, diarrhea. Denies urinary symptoms. In the ED, hip and pelvis XR are unremarkable for acute findings. Labs show Hgb 9.5, which is chronic for the patient. Labs also demonstrate a metabolic acidosis with pH 7.3, HCO3 11, with normal anion gap. Patient was given a dose of IV ceftriaxone for possible UTI. She was also given IVF, IV morphine, IV Zofran. Admission Exam Per Admitting Provider GENERAL: The patient is thin and frail, not in acute distress. VITAL SIGNS: Temperature 37.2, pulse 79, respiratory rate 20, blood pressure 179/87, oxygen 97% on room air. HEENT: Pupils equal, round and reactive to light. Oral mucosa moist. NECK: No JVD, no neck masses. CARDIOVASCULAR: S1 and S2 heard. Regular rate and rhythm. No murmur, no gallop. RESPIRATORY SYSTEM: Normal AP diameter. No accessory muscle use. No wheezing or crackles. ABDOMEN: Soft, bowel sounds present, nontender, no distention. CENTRAL NERVOUS SYSTEM: Alert and oriented x2. Speech is clear. No facial droop. Obeys simple commands. Moves extremities. EXTREMITIES: No edema, no erythema. Principal Diagnosis Left hip osteoarthritis Non-anion gap metabolic acidosis Discharge Exam GENERAL: The patient is thin and frail, not in acute distress. HEENT: Pupils equal, round and reactive to light. Oral mucosa moist. NECK: No JVD, no neck masses. CARDIOVASCULAR: S1 and S2 heard. Regular rate and rhythm. No murmur, no gallop. RESPIRATORY SYSTEM: Normal AP diameter. No accessory muscle use. No wheezing or crackles. ABDOMEN: Soft, bowel sounds present, nontender, no distention. CENTRAL NERVOUS SYSTEM: Alert and oriented x3 -Speech is clear. No facial droop. Obeys simple commands. Moves extremities. EXTREMITIES: No edema, no erythema. Discharge Data Allergies Allergy/AdvReac Type Severity Reaction Status Date / Time No Known Allergies Allergy NONE Verified 12/24/21 15:10 Consultations 12/24/21 15:09 ED Decision to Admit Stat 12/24/21 16:46 Consult Orthopedic Surgery Routine 12/24/21 19:56 Consult Nephrology Routine Ordered Studies 12/24/21 19:56 US liver Routine 12/26/21 07:57 MR hip LT wo con Routine Hospital Course (1) Osteoarthritis of left hip: Plan Patient presented to the hospital with acute on chronic left hip pain and inability to move. Admitting hip and pelvic x-ray was unremarkable for acute findings. MRI hip was done as per recommendation by orthopedics; found to have severe osteoarthritis. Orthopedic was consulted; recommended NSAIDs and possible steroid injection as outpatient. PT OT evaluation was done; patient was recommended to go to acute rehab. Patient was accepted at [facility]. She was discharged on Tylenol and Voltaren gel. She was instructed to follow-up with orthopedic as outpatient for possible intra-articular injection and possibl e surgical intervention. NSAID were not prescribed as patient has history of anemia and CKD. Her power of energy attorney (Abeba Parikh) was in agreement with the plan. Of note, patient was also found to have non-anion gap Metabolic acidosis for which nephrology was consulted. She was recommended to avoid NSS and use Isolyte P if needed. Patient was given vitamin K for elevated INR; right upper quadrant ultrasound was not significant for cirrhosis. It was thought secondary to vitamin K deficiency. Patient will need follow-up BMP and PT/INR as outpatient. Total Time Total Time Spent Total Time Spent (In Minutes): 35 Total Time Includes: Examination of the Patient, Discharge Planning, Medication Reconciliation, Communication With Other Providers and Other Discharge Plan Discharge Items Patient Disposition: Transfer Inpatient Rehab Fac Reason For Visit: HIP PAIN, AMBULATORY DYSFUNCTION Discharge Diagnosis: Severe left hip osteoarthritis Activity: Resume your previous activity Weightbearing: Full weightbearing Non-emergency contact: Primary Care Provider Call non-emergency contact if: you have any medication questions and your symptoms worsen Follow-up/Referrals: CHELITA, [Primary Care Provider] - Diet: Regular Addtl Attending Provider Instructions: You were admitted to the hospital with left hip pain and found to have severe osteoarthritis. Please continue physical therapy at the rehab. For pain control, please take Tylenol as needed. You can also apply Voltaren gel on the thigh as well. You will need follow-up with orthopedic as outpatient for possible intra- articular injection and possible surgical intervention. Please repeat BMP and PT/INR in 1 week time. Please follow-up with your primary care doctor. Pending Studies at Discharge: No Stand-Alone Forms: My [employer] Skilled Items Patient informed of condition?: Yes DNR: No Discharge Level of Care: Acute rehab Communicable Disease: No Discharge Prognosis: Stable Lines: None Urinary Catheter: No Medications and DC Order Prescriptions: New diclofenac sodium [Voltaren Arthritis Pain] 1 % Gel 4 g EXT Q6H PRN (Reason: pain (scale score 1-3)) Qty: 100 0RF Continued atorvastatin 40 mg tablet 40 mg PO DAILY acetaminophen [Tylenol] 325 mg Tablet 650 mg PO Q6 PRN (Reason: .LEFT HIP PAIN) carvedilol 6.25 mg tablet 6.25 mg PO AMHS loperamide [Imodium] 2 mg Capsule 2 mg PO QID PRN (Reason: Diarrhea) ondansetron HCl 4 mg tablet 4 mg PO Q6 PRN (Reason: Nausea) cyanocobalamin (vitamin B-12) [Vitamin B-12] 1,000 mcg Tablet 1,000 mcg PO DAILY aspirin [Aspir-Low] 81 mg Tablet,Delayed Release (Dr/Ec) 81 mg PO DAILY calcium carbonate [Calcium Antacid] 200 mg calcium (500 mg) Tablet,Chewable 500 mg PO DAILY calcium polycarbophil [FiberCon] 625 mg Tablet 625 mg PO QID lisinopril 30 mg tablet 30 mg PO DAILY omeprazole [Prilosec] 20 mg Capsule,Delayed Release(Dr/Ec) 20 mg PO DAILY furosemide 20 mg tablet 20 mg PO MOWEFR oxybutynin chloride [Ditropan] 5 mg Tablet 5 mg PO TID B-complex with vitamin C [Nephro-Damien] Tablet 1 tab PO DAILY Ensure Liquid 1 ea PO TID potassium chloride [K-Dur] 10 mEq Tablet,Er Particles/Crystals 10 meq PO DAILY mirtazapine 7.5 mg tablet 7.5 mg PO HS cholecalciferol (vitamin D3) [Vitamin D3] 125 mcg (5,000 unit) Tablet 62.5 mcg PO DAILY Discontinued acetaminophen [Tylenol Extra Strength] 500 mg Tablet 500 mg PO Q4 PRN (Reason: .PAIN MAX) Discharge Orders: Discharge Order (Routine); Ordered 12/26/21 Ordered By: Thang Dial Admission Data Admit Date/Time: 12/24/21 15:32 Attending Provider: Thang Dial Admit Provider: Linda Temple Primary Care Provider: Cameron MERLOS Providers: Parish Augustin ; Linda Temple ; Rosie Mcginnis ; [facility]
== END 2021-12-26 19:38 ==
LOC: ED 10:17 → EDINP 10:17 → SUATTDRO 15:32 → 2N 19:29

== ENCOUNTER 2022-09-01 11:13 | Inpatient (IN) ==
[2022-09-01 11:57] LABS: Basophils # (auto) 0.04 K/uL (0-0.2); Basophils % (auto) 0.7 %; Eosinophils # (auto) 0.06 K/uL (0-0.50); Hematocrit (blood only) 32.3 % (37.0-47.0); Hemoglobin 10.3 g/dl (12.0-16.0); Immature Granulocytes # (auto) 0.01 K/uL (0.01-0.20); Immature Granulocytes % (auto) 0.2 %; Lymphocytes # (auto) 1.88 K/uL (1.2-3.4); Mean Corpuscular Hemoglobin 29.7 pg (25.0-34.0); Mean Corpuscular Hgb Conc 31.9 g/dL (32.0-36.0); Mean Corpuscular Volume 93.1 fL (80.0-100.0); Mean Platelet Volume 10.2 fL (9.4-12.4); Monocytes # (auto) 0.46 K/uL (0.11-0.59); Monocytes % (auto) 7.6 %; Neutrophils # (auto) 3.61 K/uL (1.40-6.50); Neutrophils % (auto) 59.5 %; Platelet Count 233 K/uL (130-400); RDW Coefficient of Variation 15.2 % (11.5-14.5); RDW Standard Deviation 51.9 fL (36.4-46.3); Red Blood Count 3.47 M/uL (4.20-5.40); White Blood Count 6.06 K/ul (4.8-10.8)
[2022-09-01] MEDS ORDERED: PANTOprazole 40 MG in SYRINGE 0 ML IV STA (11:59)
[2022-09-01] MEDS ORDERED: SODIUM CHLORIDE 0.9% 1000ML 1,000 ML IV SCH (12:00)
--- NOTE | 2022-09-01 12:04 | History & Physical Report ---
Date of Service September 01, 2022 Assessment & Plan (1) Intellectual disability: Plan: Patient orientated and comes across not having any problems but also unable to tell me why she had EGD and CT scan recently. Typical she does not have any complaints. POA should be contacted daily for updates as the patient does not make her own medical decision. Laverne Sloan ([phone]) Of note the patient usually has explosive diarrhea, urine incontinence at baseline (2) Hypomagnesemia: Plan: Mg level 1.1. 4g Mg sulfate ordered. Repeat with AM labs (3) SBO (small bowel obstruction): Plan: This appears to be a chronic finding and now picked up with routine outpatient scan. This was the main reason she was sent ot the ER although was also present on report from CT in June 2021. Unable to get an accurate history from the patient due to intellectual disability - she normally has no complaints. Recommend admission for surgery and GI consult in addition to replacement of magnesium but suspect diet can be quickly advanced Per triage she was complaining of abdominal pain this morning, this is collaborated by the patient but only after direct questioning and difficult to know whether she is just agreeing with me. Per the [facility] she is just having emesis without abdominal pain. Not clearly getting worse. Per her sister she is having emesis including coffee-ground which has been getting worse over the last month prompting recent EGD and subsequent CT. The patient generally does not complain of anything including pain. 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 Will get basic workup in the morning in case she qualifies for iron infusion while here (6) Coffee ground emesis: Plan: Recent EGD unable to pass duodenum. Continue pantoprazole 40mg IV BID (7) Ischemic cardiomyopathy: Plan: Continue carvedilol (8) CAD (coronary artery disease): Plan: Continue ASA, carvedilol, atorvastatin (9) Hypertension: Plan: Continue carvedilol Plan VTE Prophylaxis - deferred due to recent coffee ground emesis Diet - NPO pending surgical consult Disposition - admit to med/surg Admission and Anticipated Discharge Date Admission Date: September 01, 2022 History of Present Illness Chief Complaint: Abnormal CT Primary Care Provider: MICHELL Rendon Elizabeth Méndez is a 62 year old female with intellectual disability who presents to the ER via EMS from the [facility] due to small bowel obstruction seen on outpatient CT. The patient initial reports no problems. She is unsure why she is here or why she had a recent EGD. On direct questioning that the triage was she had abdominal pain this morning she agrees she did have some pain after breakfast around 8am, severity 8/10, lasted for 30 minutes. She reports never having a pain previously. She denies any problems with her memory. On discussion with the [facility] the patient has intellectual disability and does not make her own medical decisions, her POA is her sister. She doesn't usually complain of anything and is usually quiet. She has a chronic problem of frequent emesis which staff at the [facility] think is relatively chronic and not getting worse. On discussion with her sister Abeba reason for recent EGD and CT was the emesis was getting worse with some coffee-ground therefore she had an appointment with gastroenterology. On discussion with Dr Terrell the patient has unusual duodenal anatomy and he was unable to pass the 2nd part of the duodenum therefore organized outpatient CT to assess for a stricture or mass. Allergies Allergy/AdvReac Type Severity Reaction Status Date / Time No Known Allergies Allergy NONE Verified 09/01/22 12:41 Home Medications Medication Instructions Recorded Confirmed Type acetaminophen 325 mg tablet 650 mg PO Q6 PRN .LEFT HIP PAIN 12/24/21 09/01/22 History (Tylenol) aspirin 81 mg tablet,delayed 81 mg PO QAM 12/24/21 09/01/22 History release atorvastatin 40 mg tablet 40 mg PO QAM 12/24/21 09/01/22 History calcium carbonate 200 mg calcium 500 mg PO DAILY 12/24/21 09/01/22 History (500 mg) chewable tablet (Calcium Antacid) carvedilol 6.25 mg tablet 6.25 mg PO AMHS 12/24/21 09/01/22 History cholecalciferol (vitamin D3) 125 62.5 mcg PO QAM 12/24/21 09/01/22 History mcg (5,000 unit) tablet (Vitamin D3) food supplemt, lactose-reduced 1 ea PO TID 12/24/21 09/01/22 History (Ensure oral liquid) furosemide 20 mg tablet 20 mg PO QAM 12/24/21 09/01/22 History loperamide 2 mg capsule 2 mg PO QID PRN Diarrhea 12/24/21 09/01/22 History mirtazapine 7.5 mg tablet 15 mg PO HS 12/24/21 09/01/22 History ondansetron HCl 4 mg tablet 4 mg PO Q6 PRN Nausea 12/24/21 09/01/22 History oxybutynin chloride 5 mg tablet 5 mg PO TID 12/24/21 09/01/22 History diclofenac sodium 1 % topical gel 4 g EXT Q6H PRN pain (scale score 12/26/21 09/01/22 Rx (Voltaren Arthritis Pain) 1-3) #100 grams B-complex with vitamin C 1 tab PO QAM 06/04/22 09/01/22 History bupropion HCl 300 mg 24 hr tablet, 300 mg PO QAM 06/04/22 09/01/22 History extended release cyanocobalamin (vitamin B-12) 1,000 mcg PO QAM 07/31/22 09/01/22 History 1,000 mcg tablet (Vitamin B-12) pantoprazole 40 mg tablet,delayed 40 mg PO BID 07/31/22 09/01/22 History release sucralfate 100 mg/mL oral 10 ml PO ACHS #400 mL 07/31/22 09/01/22 Rx suspension (Carafate) Past Med/Surg History Medical History 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 per [facility] oncology records CAD (coronary artery disease) NSTEMI s/p MARYBETH to [facility]AD 10/2008 Chronic RCA occlusion with adequate collaterals Chronic anemia R/t chronic renal disease per [facility] oncology records, stable CKD (chronic kidney disease), stage III Coffee ground emesis x 1 coffee ground and 1 dark brown emesis- week of 07/21/22 Hypertension Ischemic cardiomyopathy Compensated, functional class 2 per 04/2022 [facility] cardiology visit Lives in senior facility [facility] of [facility] also has impaired short term memory; sister Laverne has POA Surgical History History of cardiac cath 2008 > stent 2017 > known proximal RCA occlusion with left to right collaterals, medical management recommended No significant past surgical history Family History Other Medical history non-contributory Social History Smoking Status: Never smoker Hx Alcohol Use: No Hx Substance Use: No Preferred Language: Czech Communication Ability: Impaired Communication Ability Comment: mental disability Manager Client Required: No Beliefs That Will Affect Care: None marital status: Current Living Situation: Personal Care Facility Current Living Situation Comment: [facility] Other Information That Helps Us Care for You: No Feels Safe at Home: Yes Safety Concerns: Feels Safe At This Time Assistive Devices: Walker Review of Systems Review of Systems: All systems reviewed & are unremarkable except as noted in HPI & below Physical Exam Constitutional: WD/WN, vitals as above Eyes: PERRL, conjunctivae normal, anicteric sclerae ENMT: external ear and nose normal, oropharynx normal Respiratory: normal respiratory effort, lungs clear to auscultation Cardiovascular: RRR, no murmur, no edema Gastrointestinal (Abdomen): normal bowel sounds, soft, nontender, no hepatosplenomegaly Musculoskeletal: no cyanosis or clubbing, extremities motor strength 5/5 Skin: no rashes, warm and dry Neurologic: moves all extremities and awake; not confused Psychiatric: A+Ox3, euthymic affect (year only) Genitourinary: no CVA tenderness Results & Data Results & Data Vital Signs (Past 12 Hours) Vital Signs Temp Pulse Resp BP Pulse Ox O2 Del Method 09/01/22 11:20 36.6 C 74 17 158/66 H 99 Room Air Laboratory Results Abnormal lab results 09/01/22 09/01/22 09/01/22 Range/Units 10:55 10:55 10:55 RBC 3.47 L (4.20-5.40) M/uL Hgb 10.3 L (12.0-16.0) g/dl Hct 32.3 L (37.0-47.0) % MCHC 31.9 L (32.0-36.0) g/dL RDW Std Deviation 51.9 H (36.4-46.3) fL RDW Coeff of Bob 15.2 H (11.5-14.5) % PT 20.3 H (9.0-12.0) Seconds INR 1.9 H (0.9-1.1) APTT 36.0 H (21.0-31.0) Seconds Chloride 111 H (98-107) mmol/L Carbon Dioxide 20 L (21-32) mmol/L Calcium 8.1 L (8.6-10.3) mg/dl Magnesium 1.1 L (1.7-2.4) mg/dl Alkaline Phosphatase 163 H (34-104) U/L Diagnostic Findings ABDOMEN AND PELVIS CT WITH IV AND ORAL CONTRAST CT DOSE: 459.53 mGy.cm HISTORY: K44.9 - Diaphragmatic hernia without obstruction or gangrene TECHNIQUE: Multiaxial CT images of the abdomen and pelvis were performed following the use of intravenous and oral contrast. A dose lowering technique was utilized adhering to the principles of ALARA. COMPARISON STUDY: Abdomen and pelvis CT 10/12/2014. FINDINGS: The lung bases are clear. No pneumoperitoneum. No pneumatosis. Degener ative changes again noted within the hips. No acute fractures identified. There is again noted a 9 mm calcified disc protrusion at L2-L3 resulting in moderate to severe central canal narrowing. This is similar to the prior study. Coronary artery calcifications are again noted. The liver, gallbladder, spleen, adrenal glands, and pancreas unremarkable. Left peripelvic renal cysts. Mild right hydronephrosis to the level the mid ureter likely due to extrinsic compression from the adjacent distended duodenum. No retroperitoneal lymphadenopathy. Moderate to severe calcified plaque within the aorta, iliac arteries, and mesenteric vessels. There is probable focal occlusion of the proximal celiac artery with distal reconstitution. The main portal vein is patent. Mild pelvic floor collapse. The bladder, uterus, and ovaries are unremarkable. No pelvic free fluid. No bowel wall thickening. Normal appendix. Mildly distended stomach which is filled with contrast. The second and third portions of the duodenum are markedly distended measuring up to 7.7 cm in diameter. This has progressed in the interval when it measured up to 5.7 cm in diameter. Mild narrowing without obstruction of the duodenum as it crosses between the SMA and abdominal aorta at the midline. Distal to this the duodenum and proximal jejunum are also distended measuring up to 6 cm in diameter. There is focal transition point within the proximal jejunum within the mid abdomen on image 116. Therefore, these findings are consistent with a small bowel obstruction. The etiology is unclear on this study but could be due to an adhesion, stricture, or less likely an occult lesion. The remaining loops of bowel are normal and course and caliber. IMPRESSION: 1. Mildly distended stomach with interval progression of the marked dilatation of the duodenum to the level the proximal jejunum where there is a focal transition point as described above. Therefore, this is consistent with a proximal small bowel obstruction. The etiology is unclear on this study but could be due to an adhesion, stricture, or less likely an occult lesion. 2. Mild right hydronephrosis to the level of the mid right ureter likely due to extrinsic compression from the adjacent distended duodenum. 3. Additional findings as described above. 4. This report was called/faxed to the referring physician following dictation. Medications Administered ER Medications Given: NSS @ 80ml/hr Code Status & VTE Plan Code Status Full VTE Prophylaxis Plan VTE Prophylaxis will be ordered: No PG Care Time/CCT Total # of Minutes Spent Total Time Spent with Patient: Total time spent is greater than 50% in coordination of care (as documented) at patient's floor/unit and/or counseling patient: Coding Level of Care Code 30703 INT INP/OBS CARE 3/75MIN Diagnoses Intellectual disability F79 Hypomagnesemia E83.42 SBO (small bowel obstruction) K56.609 Bone marrow disease D75.9 Anemia D64.9 Anemia type: unspecified type Coffee ground emesis K92.0 Ischemic cardiomyopathy I25.5 CAD (coronary artery disease) I25.10 Hypertension I10 (5) Anemia Anemia type: unspecified type Qualified Code(s): D64.9 - Anemia, unspecified
[2022-09-01 12:17] LABS: Albumin Level 3.8 gm/dl (3.4-5.0); BUN Creatinine Ratio 13.3 (10-20); Bilirubin Direct 0.1 mg/dl (0-0.2); Bilirubin,Total 0.3 mg/dl (0.2-1.0); Calcium 8.1 mg/dl (8.6-10.3); Creatinine Clr Calc Pharmacy 38.5 ml/min; Est GFR (African American) 59.9 ml/min; Est GFR (Non-African American) 51.7 ml/min; Potassium 3.6 mmol/L (3.5-5.1)
[2022-09-01 13:15] LABS: Magnesium 1.1 mg/dl (1.7-2.4); Phosphorus 2.6 mg/dl (2.5-4.9)
--- NOTE | 2022-09-01 14:42 | Surgery Consultation ---
Date of Consultation September 01, 2022 Assessment & Plan (1) Abnormal CT scan, gastrointestinal tract: 62-year-old female with a history of intellectual disability who presented to the emergency room department from [facility] [facility] for an abnormal CT scan finding which she had done this morning as an outpatient follow-up for recent EGD. Recent EGD showed an abnormality in the duodenum. CT scan showing evidence of a proximal small bowel obstruction with a markedly dilated duodenum. In review of records she has had similar findings on CT scan of June 2021 in which she was evaluated by [facility] gastroenterology who recommended vascular surgery consult as well as an EGD for possible SMA syndrome. She did not undergo any EGD or vascular surgery consult at that time. Patient currently complains of no symptoms however per [facility] and per her sister who is power of litigation attorney associate she has been having emesis with coffee-ground emesis for the past couple of weeks. She currently is stable with the CT scan findings obviously chronic in nature. There is no acute surgical intervention required at this time. She will likely need a outpatient follow-up at a tertiary center in which vascular surgery as well as foregut surgery are available given CT scan findings. Discussed with Dr. Enriquez who agrees with above. Also discussed with Dr. Sy with the medicine service. Plan I have seen and examined the patient and agree with the above assessment and plan. This is a chronic issue that has been ongoing for over a year. She will require a multidisciplinary approach including vascular surgery as well as general surgery. This can be addressed as an outpatient. We will sign off for now. Please call with any questions or concerns. History of Present Illness Reason for Consultation: SBO Requesting Physician: Denis Sy MD Attending Physician: Denis Sy MD History of Present Illness Elizabeth Méndez is a 62 year old female with history of intellectual disability , arthritis of hip, UTI, anemia, history of GI bleed, CKD, ischemic cardiomyopathy, CAD, and hypertension who presented to the ER via EMS from the [place] [facility] due to small bowel obstruction seen on outpatient CT. History is per records as patient states she is not having any symptoms or complaints. She had recent EGD by Dr. Terrell for coffee ground emesis which showed abnormality in the duodenum which could be a diverticulum in which an outpatient CT scan of abd/pelvis recommended which she obtained today. CT scan showing SBO with significantly dilated duodenum and jejunum with focal transition. In review of records, Adalgisa was seen by MICHELL Khan with [facility] in June of [address] scan findings who recommend vascular surgery consult as well as EGD which she did not undergo. Per records and sister she has been having emesis a few times a week for a few months. Elizabeth currently states she is not having any abdominal pain, nausea, vomiting, increased abdominal bloating, heartburn/reflux, regurgitation. having normal bowel movements and passing gas. Not having any abdominal pain after eating. Allergies Allergy/AdvReac Type Severity Reaction Status Date / Time No Known Allergies Allergy NONE Verified 09/01/22 12:41 Home Medications Medication Instructions Recorded Confirmed Type acetaminophen 325 mg tablet 650 mg PO Q6 PRN .LEFT HIP PAIN 12/24/21 09/01/22 History (Tylenol) aspirin 81 mg tablet,delayed 81 mg PO QAM 12/24/21 09/01/22 History release atorvastatin 40 mg tablet 40 mg PO QAM 12/24/21 09/01/22 History calcium carbonate 200 mg calcium 500 mg PO DAILY 12/24/21 09/01/22 History (500 mg) chewable tablet (Calcium Antacid) carvedilol 6.25 mg tablet 6.25 mg PO AMHS 12/24/21 09/01/22 History cholecalciferol (vitamin D3) 125 62.5 mcg PO QAM 12/24/21 09/01/22 History mcg (5,000 unit) tablet (Vitamin D3) food supplemt, lactose-reduced 1 ea PO TID 12/24/21 09/01/22 History (Ensure oral liquid) furosemide 20 mg tablet 20 mg PO QAM 12/24/21 09/01/22 History loperamide 2 mg capsule 2 mg PO QID PRN Diarrhea 12/24/21 09/01/22 History mirtazapine 7.5 mg tablet 15 mg PO HS 12/24/21 09/01/22 History ondansetron HCl 4 mg tablet 4 mg PO Q6 PRN Nausea 12/24/21 09/01/22 History oxybutynin chloride 5 mg tablet 5 mg PO TID 12/24/21 09/01/22 History diclofenac sodium 1 % topical gel 4 g EXT Q6H PRN pain (scale score 12/26/21 09/01/22 Rx (Voltaren Arthritis Pain) 1-3) #100 grams B-complex with vitamin C 1 tab PO QAM 06/04/22 09/01/22 History bupropion HCl 300 mg 24 hr tablet, 300 mg PO QAM 06/04/22 09/01/22 History extended release cyanocobalamin (vitamin B-12) 1,000 mcg PO QAM 07/31/22 09/01/22 History 1,000 mcg tablet (Vitamin B-12) pantoprazole 40 mg tablet,delayed 40 mg PO BID 07/31/22 09/01/22 History release sucralfate 100 mg/mL oral 10 ml PO ACHS #400 mL 07/31/22 09/01/22 Rx suspension (Carafate) Patient History Medical History 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 per [facility] oncology records CAD (coronary artery disease) NSTEMI s/p MARYBTEH to LAD 10/2008 Chronic RCA occlusion with adequate collaterals Chronic anemia R/t chronic renal disease per [facility] oncology records, stable CKD (chronic kidney disease), stage III Coffee ground emesis x 1 coffee ground and 1 dark brown emesis- week of 07/21/22 Hypertension Ischemic cardiomyopathy Compensated, functional class 2 per 04/2022 [facility] cardiology visit Lives in senior facility Resident of [facility] Mental disability also has impaired short term memory; sister Laverne has POA Surgical History History of cardiac cath 2008 > stent 2017 > known proximal RCA occlusion with left to right collaterals, medical management recommended No significant past surgical history Family History Other Medical history non-contributory Social History Smoking Status: Never smoker Hx Alcohol Use: No Hx Substance Use: No Preferred Language: [place] Communication Ability: Effective Communication Ability Comment: mental disability Operations Consultant Required: No Beliefs That Will Affect Care: None marital status: Current Living Situation: Personal Care Facility Current Living Situation Comment: [facility] Other Information That Helps Us Care for You: No Feels Safe at Home: Yes Safety Concerns: Feels Safe At This Time Assistive Devices: Walker Physical Exam Constitutional: WD/WN, vitals as above cooperative and comfortable; no acute distress and not ill appearing Respiratory: normal respiratory effort, lungs clear to auscultation Cardiovascular: RRR, no murmur, no edema Gastrointestinal (Abdomen): Inspection/Auscultation: abdomen normal to inspection and + hypoactive bowel sounds; abdomen not distended and + abnormal bowel sounds Percussion/Palpation: abdomen soft; abdomen nontender, no guarding, abdomen not rigid and abdomen not firm Skin: no rashes, warm and dry Psychiatric: Orientation: alert Results & Data Vital Signs (Past 12 Hours) Vital Signs Temp Pulse Resp BP Pulse Ox O2 Del Method 09/01/22 14:30 75 16 100 09/01/22 14:30 154/67 H 09/01/22 14:27 75 21 100 09/01/22 14:27 158/77 H 09/01/22 14:01 206/97 H 09/01/22 14:01 87 14 92 09/01/22 14:00 84 19 96 09/01/22 13:30 72 16 100 09/01/22 13:30 158/68 H 09/01/22 13:12 160/62 H 09/01/22 13:12 71 14 99 09/01/22 13:00 71 17 100 09/01/22 12:30 76 20 100 09/01/22 12:00 75 12 100 09/01/22 11:30 78 12 100 09/01/22 11:19 74 10 L 100 09/01/22 11:18 158/66 H 09/01/22 11:37 Room Air 09/01/22 12:21 69 09/01/22 11:20 36.6 C 74 17 158/66 H 99 Room Air Diagnostic Findings ABDOMEN AND PELVIS CT WITH IV AND ORAL CONTRAST 09/01/2022 CT DOSE: 459.53 mGy.cm HISTORY: K44.9 - Diaphragmatic hernia without obstruction or gangrene TECHNIQUE: Multiaxial CT images of the abdomen and pelvis were performed following the use of intravenous and oral contrast. A dose lowering technique was utilized adhering to the principles of ALARA. COMPARISON STUDY: Abdomen and pelvis CT 10/12/2014. FINDINGS: The lung bases are clear. No pneumoperitoneum. No pneumatosis. Degenerative changes again noted within the hips. No acute fractures identified. There is again noted a 9 mm calcified disc protrusion at L2-L3 resulting in moderate to severe central canal narrowing. This is similar to the prior study. Coronary artery calcifications are again noted. The liver, gallbladder, spleen, adrenal glands, and pancreas unremarkable. Left peripelvic renal cysts. Mild right hydronephrosis to the level the mid ureter likely due to extrinsic compression from the adjacent distended duodenum. No retroperitoneal lymphadenopathy. Moderate to severe calcified plaque within the aorta, iliac arteries, and mesenteric vessels. There is probable focal occlusion of the proximal celiac artery with distal reconstitution. The main portal vein is patent. Mild pelvic floor collapse. The bladder, uterus, and ovaries are unremarkable. No pelvic free fluid. No bowel wall thickening. Normal appendix. Mildly distended stomach which is filled with contrast. The second and third portions of the duodenum are markedly distended measuring up to 7.7 cm in diameter. This has progressed in the interval when it measured up to 5.7 cm in diameter. Mild narrowing without obstruction of the duodenum as it crosses between the SMA and abdominal aorta at the midline. Distal to this the duodenum and proximal jejunum are also distended measuring up to 6 cm in diameter. There is focal transition point within the proximal jejunum within the mid abdomen on image 116. Therefore, these findings are consistent with a small bowel obstr uction. The etiology is unclear on this study but could be due to an adhesion, stricture, or less likely an occult lesion. The remaining loops of bowel are normal and course and caliber. IMPRESSION: 1. Mildly distended stomach with interval progression of the marked dilatation of the duodenum to the level the proximal jejunum where there is a focal transition point as described above. Therefore, this is consistent with a proximal small bowel obstruction. The etiology is unclear on this study but could be due to an adhesion, stricture, or less likely an occult lesion. 2. Mild right hydronephrosis to the level of the mid right ureter likely due to extrinsic compression from the adjacent distended duodenum. 3. Additional findings as described above. 4. This report was called/faxed to the referring physician following dictation. OUTPATIENT CT SCAN 06/2021 at [facility] ABDOMEN/PELVIS: LUNG BASES: Right lower lobe basilar atelectasis. LIVER: Unremarkable BILE DUCTS: Unremarkable GALLBLADDER: Contracted PANCREAS: Unremarkable SPLEEN: Unremarkable ADRENALS: Unremarkable KIDNEYS/URETERS: Unremarkable BLADDER: Unremarkable BOWEL: There is dilatation of the duodenum with a focal area of duodenal narrowing best visualized on series 16, image 56,57. At this location there appears to be narrowing between the aorta and SMA. The aorto mesenteric distance is 8.8 millimeters. The aorta mesenteric angle is measuring approximately 15 degrees. On coronal images the proximal jejunum appears to be more superior relative to the distended portion of the duodenum. LYMPH NODES: No significant retroperitoneal lymphadenopathy. VESSELS: As above REPRODUCTIVE ORGANS: Unremarkable PERITONEUM/RETROPERITONEUM: Unremarkable ABDOMINAL WALL/SOFT TISSUES: Unremarkable BONES: Degenerative changes thoracolumbar some retained IMPRESSION IMPRESSION 1. No evidence of abdominal aortic aneurysm. There is mild calcified atherosclerotic disease of the abdominal aorta. 2. Mild calcified atherosclerotic plaque in the iliac arterial vasculature. 3. Dilatation of the proximal to mid duodenum with focal area of duodenal narrowing distally. The area of narrowing/stricture appears to be between the aorta and SMA. Given the above detailed aorta mesenteric angle and aorto mesenteric distance the possibility of SMA syndrome is raised. Additionally the patient proximal jejunum is located superior anatomically relative to the duodenum. This may be contributing to further distension of the duodenum due to the effects of gravity.
[2022-09-01 15:34] LABS: INR 1.9 (0.9-1.1); Partial Thromboplastin Ratio 1.3; Prothrombin Time 20.3 Seconds (9.0-12.0)
--- NOTE | 2022-09-01 17:06 | Emergency Department Note ---
History of Present Illness General Chief Complaint: GI Assessment Stated Complaint: BOWEL OBSTRUCTION Time Seen by Provider: 09/01/22 11:37 History of Present Illness Provider Complaint: + abnormal lab Description of abnormal result: CT done outpatient today showed SBO Associated symptoms: + abdominal pain; no fever, no chest pain or no shortness of breath HPI narrative: No nausea or vomiting. Home Medications Medication Instructions Recorded Confirmed Type acetaminophen 325 mg tablet 650 mg PO Q6 PRN .LEFT HIP PAIN 12/24/21 09/01/22 History (Tylenol) aspirin 81 mg tablet,delayed 81 mg PO QAM 12/24/21 09/01/22 History release atorvastatin 40 mg tablet 40 mg PO QAM 12/24/21 09/01/22 History calcium carbonate 200 mg calcium 500 mg PO DAILY 12/24/21 09/01/22 History (500 mg) chewable tablet (Calcium Antacid) carvedilol 6.25 mg tablet 6.25 mg PO AMHS 12/24/21 09/01/22 History cholecalciferol (vitamin D3) 125 62.5 mcg PO QAM 12/24/21 09/01/22 History mcg (5,000 unit) tablet (Vitamin D3) food supplemt, lactose-reduced 1 ea PO TID 12/24/21 09/01/22 History (Ensure oral liquid) furosemide 20 mg tablet 20 mg PO QAM 12/24/21 09/01/22 History loperamide 2 mg capsule 2 mg PO QID PRN Diarrhea 12/24/21 09/01/22 History mirtazapine 7.5 mg tablet 15 mg PO HS 12/24/21 09/01/22 History ondansetron HCl 4 mg tablet 4 mg PO Q6 PRN Nausea 12/24/21 09/01/22 History oxybutynin chloride 5 mg tablet 5 mg PO TID 12/24/21 09/01/22 History diclofenac sodium 1 % topical gel 4 g EXT Q6H PRN pain (scale score 12/26/21 09/01/22 Rx (Voltaren Arthritis Pain) 1-3) #100 grams B-complex with vitamin C 1 tab PO QAM 06/04/22 09/01/22 History bupropion HCl 300 mg 24 hr tablet, 300 mg PO QAM 06/04/22 09/01/22 History extended release cyanocobalamin (vitamin B-12) 1,000 mcg PO QAM 07/31/22 09/01/22 History 1,000 mcg tablet (Vitamin B-12) pantoprazole 40 mg tablet,delayed 40 mg PO BID 07/31/22 09/01/22 History release sucralfate 100 mg/mL oral 10 ml PO ACHS #400 mL 07/31/22 09/01/22 Rx suspension (Carafate) Allergies Allergy/AdvReac Type Severity Reaction Status Date / Time No Known Allergies Allergy NONE Verified 09/01/22 12:41 Past Med/Surg History Medical History 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 per [facility] records CAD (coronary artery disease) NSTEMI s/p MARYBETH to [facility] 10/2008 Chronic RCA occlusion with adequate collaterals Chronic anemia R/t chronic renal disease per [facility] records, stable CKD (chronic kidney disease), stage III Coffee ground emesis x 1 coffee ground and 1 dark brown emesis- week of 07/21/22 Hypertension Ischemic cardiomyopathy Compensated, functional class 2 per 04/2022 [facility] cardiology visit Lives in senior facility [facility] Mental disability also has impaired short term memory; sister Laverne has POA Surgical History History of cardiac cath 2008 > stent 2017 > known proximal RCA occlusion with left to right collaterals, medical management recommended No significant past surgical history Family History Other Medical history non-contributory Social History Smoking Status: Never smoker Preferred Language: Guinean Communication Ability: Impaired Communication Ability Comment: mental disability Head Librarian Required: No Beliefs That Will Affect Care: None marital status: Current Living Situation: Personal Care Facility Current Living Situation Comment: [facility] Feels Safe at Home: Yes Assistive Devices: Walker Physical Exam Vital Signs: Vital Signs - 24 hr 09/01/22 11:20 09/01/22 12:21 09/01/22 11:37 Temperature 36.6 C Temperature Source Oral Pulse Rate 74 69 Pulse Rate [Apical ] Pulse Rate from Sp O2 Sensor Pulse Rhythm Regular Pulse Strength Normal Respiratory Rate 17 Respiratory Effort / Characteristics Non-Labored Respiratory Depth Normal Respiratory Patter n Regular Blood Pressure 158/66 H Blood Pressure [Ri ght Arm] Blood Pressure Britta n 96 Blood Pressure Britta n [Right Arm] Blood Pressure Pos ition Lying Blood Pressure Pos ition [Right Arm] Pulse Oximetry 99 Oxygen Delivery Me thod Room Air Room Air Sepsis Recent Feve r Within 48 Hours No Sepsis New/Unexpla ined Change in Men vick Status N/A Sepsis Action Take n by Nursing No Action Required 09/01/22 11:18 09/01/22 11:19 09/01/22 11:30 Temperature Temperature Source Pulse Rate 74 78 Pulse Rate [Apical ] Pulse Rate from Sp O2 Sensor 74 74 Pulse Rhythm Pulse Strength Respiratory Rate 10 L 12 Respiratory Effort / Characteristics Respiratory Depth Respiratory Patter n Blood Pressure 158/66 H Blood Pressure [Ri ght Arm] Blood Pressure Britta n 122 Blood Pressure Britta n [Right Arm] Blood Pressure Pos ition Blood Pressure Pos ition [Right Arm] Pulse Oximetry 100 100 Oxygen Delivery Me thod Sepsis Recent Feve r Within 48 Hours Sepsis New/Unexpla ined Change in Men vick Status Sepsis Action Take n by Nursing 09/01/22 12:00 09/01/22 12:30 09/01/22 13:00 Temperature Temperature Source Pulse Rate 75 76 71 Pulse Rate [Apical ] Pulse Rate from Sp O2 Sensor 74 76 69 Pulse Rhythm Pulse Strength Respiratory Rate 12 20 17 Respiratory Effort / Characteristics Respiratory Depth Respiratory Patter n Blood Pressure Blood Pressure [Ri ght Arm] Blood Pressure Britta n Blood Pressure Britta n [Right Arm] Blood Pressure Pos ition Blood Pressure Pos ition [Right Arm] Pulse Oximetry 100 100 100 Oxygen Delivery Me thod Sepsis Recent Feve r Within 48 Hours Sepsis New/Unexpla ined Change in Men vick Status Sepsis Action Take n by Nursing 09/01/22 13:12 09/01/22 13:12 09/01/22 13:30 Temperature Temperature Source Pulse Rate 71 Pulse Rate [Apical ] Pulse Rate from Sp O2 Sensor 74 Pulse Rhythm Pulse Strength Respiratory Rate 14 Respiratory Effort / Characteristics Respiratory Depth Respiratory Patter n Blood Pressure 160/62 H 158/68 H Blood Pressure [Ri ght Arm] Blood Pressure Britta n 96 133 Blood Pressure Britta n [Right Arm] Blood Pressure Pos ition Blood Pressure Pos ition [Right Arm] Pulse Oximetry 99 Oxygen Delivery Me thod Sepsis Recent Feve r Within 48 Hours Sepsis New/Unexpla ined Change in Men vick Status Sepsis Action Take n by Nursing 09/01/22 13:30 09/01/22 14:00 09/01/22 14:01 Temperature Temperature Source Pulse Rate 72 84 87 Pulse Rate [Apical ] Pulse Rate from Sp O2 Sensor 71 86 87 Pulse Rhythm Pulse Strength Respiratory Rate 16 19 14 Respiratory Effort / Characteristics Respiratory Depth Respiratory Patter n Blood Pressure Blood Pressure [Ri ght Arm] Blood Pressure Britta n Blood Pressure Britta n [Right Arm] Blood Pressure Pos ition Blood Pressure Pos ition [Right Arm] Pulse Oximetry 100 96 92 Oxygen Delivery Me thod Sepsis Recent Feve r Within 48 Hours Sepsis New/Unexpla ined Change in Men vick Status Sepsis Action Take n by Nursing 09/01/22 14:01 09/01/22 14:27 09/01/22 14:27 Temperature Temperature Source Pulse Rate 75 Pulse Rate [Apical ] Pulse Rate from Sp O2 Sensor 75 Pulse Rhythm Pulse Strength Respiratory Rate 21 Respiratory Effort / Characteristics Respiratory Depth Respiratory Patter n Blood Pressure 206/97 H 158/77 H Blood Pressure [Ri ght Arm] Blood Pressure Britta n 152 137 Blood Pressure Britta n [Right Arm] Blood Pressure Pos ition Blood Pressure Pos ition [Right Arm] Pulse Oximetry 100 Oxygen Delivery Me thod Sepsis Recent Feve r Within 48 Hours Sepsis New/Unexpla ined Change in Men vick Status Sepsis Action Take n by Nursing 09/01/22 14:30 09/01/22 14:30 09/01/22 15:30 Temperature Temperature Source Pulse Rate 75 Pulse Rate [Apical ] 77 Pulse Rate from Sp O2 Sensor 74 Pulse Rhythm Pulse Strength Respiratory Rate 16 17 Respiratory Effort / Characteristics Non-Labored Sponta neous Respiratory Depth Normal Respiratory Patter n Blood Pressure 154/67 H Blood Pressure [Ri ght Arm] 164/70 H Blood Pressure Britta n 127 Blood Pressure Britta n [Right Arm] 101 Blood Pressure Pos ition Blood Pressure Pos ition [Right Arm] Sitting Pulse Oximetry 100 100 Oxygen Delivery Me thod Room Air Sepsis Recent Feve r Within 48 Hours Sepsis New/Unexpla ined Change in Men vick Status Sepsis Action Take n by Nursing 09/01/22 16:21 Temperature Temperature Source Pulse Rate 71 Pulse Rate [Apical ] Pulse Rate from Sp O2 Sensor Pulse Rhythm Pulse Strength Respiratory Rate Respiratory Effort / Characteristics Respiratory Depth Respiratory Patter n Blood Pressure Blood Pressure [Ri ght Arm] Blood Pressure Britta n Blood Pressure Britta n [Right Arm] Blood Pressure Pos ition Blood Pressure Pos ition [Right Arm] Pulse Oximetry Oxygen Delivery Me thod Sepsis Recent Feve r Within 48 Hours Sepsis New/Unexpla ined Change in Men vick Status Sepsis Action Take n by Nursing Physical Exam: Physical Exam CV: Normal rate, regular rhythm, normal heart sounds and intact distal pulses. There is no peripheral edema. Palpable radial pulses bue. PULM/CHEST: Effort normal and breath sounds normal. No respiratory distress. No stridor. She has no wheezes. She has no rales. ABD: The abdomen is soft.There is no tenderness. There is no rebound, no guard ing Course Course 1137: The patient was evaluated in room B11. A complete history and physical exam was performed Administered Medications Discontinued Medications Sodium Chloride (Nss 1000ml) 1,000 mls @ 80 mls/hr IV .[id number] TAMMY Stop: 10/01/22 11:59 Last Infusion: 09/01/22 16:41 Dose: 0 mls/hr Documented By: Admin: 09/01/22 12:01 Dose: 80 mls/hr Documented By: DARWIN Pantoprazole Sodium 40 mg/ (Syringe) 10 mls @ 5 mls/min IV NOW STA Stop: 09/01/22 12:00 Last Admin: 09/01/22 13:09 Dose: 5 mls/min Documented By: DARWIN Medical Decision Making Medical Records Attestation: I reviewed the patient's medical records. External medical records reviewed. CT of the abdomen pelvis done earlier today showed a proximal SBO. Laboratory Data Attestation: I reviewed the patient's lab results. 09/01/22 10:55 09/01/22 10:55 Lab Results 09/01/22 09/01/22 09/01/22 Range/Units 10:55 10:55 10:55 WBC 6.06 (4.8-10.8) K/ul RBC 3.47 L (4.20-5.40) M/uL Hgb 10.3 L (12.0-16.0) g/dl Hct 32.3 L (37.0-47.0) % MCV 93.1 (80.0-100.0) fL MCH 29.7 (25.0-34.0) pg MCHC 31.9 L (32.0-36.0) g/dL RDW Std Deviation 51.9 H (36.4-46.3) fL RDW Coeff of Bob 15.2 H (11.5-14.5) % Plt Count 233 (130-400) K/uL MPV 10.2 (9.4-12.4) fL Immature Gran % (Auto) 0.2 % Neut % (Auto) 59.5 % Lymph % (Auto) 31.0 % [place] % (Auto) 7.6 % Eos % (Auto) 1.0 % Baso % (Auto) 0.7 % Neut # (Auto) 3.61 (1.40-6.50) K/uL Lymph # (Auto) 1.88 (1.2-3.4) K/uL [place] # (Auto) 0.46 (0.11-0.59) K/uL Eos # (Auto) 0.06 (0-0.50) K/uL Baso # (Auto) 0.04 (0-0.2) K/uL Immature Gran # (Auto) 0.01 (0.01-0.20) K/uL PT 20.3 H (9.0-12.0) Seconds INR 1.9 H (0.9-1.1) APTT 36.0 H (21.0-31.0) Seconds PTT Ratio 1.3 Sodium 138 (136-145) mmol/L Potassium 3.6 (3.5-5.1) mmol/L Chloride 111 H (98-107) mmol/L Carbon Dioxide 20 L (21-32) mmol/L Anion Gap 7 (3-11) BUN 15 (6-23) mg/dl Creatinine 1.13 (0.6-1.2) mg/dl Est Cr Clr Drug Dosing 38.5 ml/min Est GFR ( Amer) 59.9 ml/min Est GFR (Non-Af Amer) 51.7 ml/min BUN/Creatinine Ratio 13.3 (10-20) Glucose 96 (70-99(Fasting)) mg/dl Calcium 8.1 L (8.6-10.3) mg/dl Phosphorus 2.6 (2.5-4.9) mg/dl Magnesium 1.1 L (1.7-2.4) mg/dl Total Bilirubin 0.3 (0.2-1.0) mg/dl Direct Bilirubin 0.1 (0-0.2) mg/dl AST 31 (13-39) U/L ALT 33 (7-52) U/L Alkaline Phosphatase 163 H (34-104) U/L Total Protein 6.0 (6.0-8.3) gm/dl Albumin 3.8 (3.4-5.0) gm/dl Lipase 73 (11-82) U/L SARS-CoV-2, RNA, NAAT (NEGATIVE) 09/01/22 Range/Units Unknown WBC (4.8-10.8) K/ul RBC (4.20-5.40) M/uL Hgb (12.0-16.0) g/dl Hct (37.0-47.0) % MCV (80.0-100.0) fL MCH (25.0-34.0) pg MCHC (32.0-36.0) g/dL RDW Std Deviation (36.4-46.3) fL RDW Coeff of Bob (11.5-14.5) % Plt Count (130-400) K/uL MPV (9.4-12.4) fL Immature Gran % (Auto) % Neut % (Auto) % Lymph % (Auto) % [place] % (Auto) % Eos % (Auto) % Baso % (Auto) % Neut # (Auto) (1.40-6.50) K/uL Lymph # (Auto) (1.2-3.4) K/uL [place] # (Auto) (0.11-0.59) K/uL Eos # (Auto) (0-0.50) K/uL Baso # (Auto) (0-0.2) K/uL Immature Gran # (Auto) (0.01-0.20) K/uL PT (9.0-12.0) Seconds INR (0.9-1.1) APTT (21.0-31.0) Seconds PTT Ratio Sodium (136-145) mmol/L Potassium (3.5-5.1) mmol/L Chloride (98-107) mmol/L Carbon Dioxide (21-32) mmol/L Anion Gap (3-11) BUN (6-23) mg/dl Creatinine (0.6-1.2) mg/dl Est Cr Clr Drug Dosing ml/min Est GFR ( Amer) ml/min Est GFR (Non-Af Amer) ml/min BUN/Creatinine Ratio (10-20) Glucose (70-99(Fasting)) mg/dl Calcium (8.6-10.3) mg/dl Phosphorus (2.5-4.9) mg/dl Magnesium (1.7-2.4) mg/dl Total Bilirubin (0.2-1.0) mg/dl Direct Bilirubin (0-0.2) mg/dl AST (13-39) U/L ALT (7-52) U/L Alkaline Phosphatase (34-104) U/L Total Protein (6.0-8.3) gm/dl Albumin (3.4-5.0) gm/dl Lipase (11-82) U/L SARS-CoV-2, RNA, NAAT NEGATIVE (NEGATIVE) MDM Narrative Vital signs stable. Outpatient CT of the abdomen pelvis showed a small bowel obstruction. Patient will be admitted to the [facility] hospitalist team Dr. Sy team notified Impression & Plan SBO (small bowel obstruction) Discharge Plan Visit Data Chief Complaint: GI Assessment Stated Complaint: BOWEL OBSTRUCTION ED Provider: Mickey Ball Discharge Problem: SBO (small bowel obstruction) Patient Disposition: Admitted As Inpatient Forms Stand Alone Forms: My [facility] Prescriptions Prescriptions: No Action sucralfate [Carafate] 100 mg/mL suspension 10 ml PO ACHS Qty: 400 0RF Rx Instructions: swish in mouth and swallow; TAKE BEFORE MEALS AND AT BEDTIME. atorvastatin 40 mg tablet 40 mg PO QAM acetaminophen [Tylenol] 325 mg Tablet 650 mg PO Q6 PRN (Reason: .LEFT HIP PAIN) carvedilol 6.25 mg tablet 6.25 mg PO AMHS loperamide 2 mg Capsule 2 mg PO QID PRN (Reason: Diarrhea) ondansetron HCl 4 mg tablet 4 mg PO Q6 PRN (Reason: Nausea) aspirin 81 mg Tablet,Delayed Release (Dr/Ec) 81 mg PO QAM calcium carbonate [Calcium Antacid] 200 mg calcium (500 mg) Tablet,Chewable 500 mg PO DAILY furosemide 20 mg tablet 20 mg PO QAM oxybutynin chloride 5 mg Tablet 5 mg PO TID Ensure Liquid 1 ea PO TID mirtazapine 7.5 mg tablet 15 mg PO HS cholecalciferol (vitamin D3) [Vitamin D3] 125 mcg (5,000 unit) Tablet 62.5 mcg PO QAM diclofenac sodium [Voltaren Arthritis Pain] 1 % Gel 4 g EXT Q6H PRN (Reason: pain (scale score 1-3)) Qty: 100 0RF B-complex with vitamin C Tablet 1 tab PO QAM bupropion HCl 300 mg tablet extended release 24 hr 300 mg PO QAM cyanocobalamin (vitamin B-12) [Vitamin B-12] 1,000 mcg Tablet 1,000 mcg PO QAM pantoprazole 40 mg Tablet,Delayed Release (Dr/Ec) 40 mg PO BID Referrals Referrals: Alyssa Jimenez CRNP [Primary Care Provider] -
[2022-09-01] MEDS ORDERED: ACETAMINOPHEN 1,000 MG/100 ML VIAL IV PRN (18:36)
[2022-09-01] MEDS: LACTATED RINGER'S 1,000 ML IV SCH (19:50)
[2022-09-01] MEDS: MAGNESIUM SULFATE / D5W 1 GM/100 ML BAG IV SCH ×3 (19:54→23:47)
[2022-09-01] MEDS ORDERED: MIRTAZAPINE TAB 15 MG TAB PO SCH (21:00)
[2022-09-01] MEDS: carvediloL 6.25 MG TAB PO SCH (21:34)
[2022-09-01] MEDS: oxyBUTYnin chloride 5 MG TAB PO SCH (21:35)
[2022-09-01] MEDS: PANTOprazole 40 MG in SYRINGE 0 ML IV SCH (21:49)
[2022-09-02] MEDS: MAGNESIUM SULFATE / D5W 1 GM/100 ML BAG IV SCH (01:29)
[2022-09-02] MEDS: LACTATED RINGER'S 1,000 ML IV SCH (05:51)
[2022-09-02 07:35] LABS: Basophils # (auto) 0.03 K/uL (0-0.2); Basophils % (auto) 0.7 %; Eosinophils # (auto) 0.06 K/uL (0-0.50); Eosinophils % (auto) 1.3 %; Hematocrit (blood only) 26.8 % (37.0-47.0); Hemoglobin 8.8 g/dl (12.0-16.0); Immature Granulocytes # (auto) 0.01 K/uL (0.01-0.20); Immature Granulocytes % (auto) 0.2 %; Lymphocytes # (auto) 1.74 K/uL (1.2-3.4); Lymphocytes % (auto) 38.2 %; Mean Corpuscular Hemoglobin 29.8 pg (25.0-34.0); Mean Corpuscular Hgb Conc 32.8 g/dL (32.0-36.0); Mean Corpuscular Volume 90.8 fL (80.0-100.0); Mean Platelet Volume 10.2 fL (9.4-12.4); Monocytes # (auto) 0.38 K/uL (0.11-0.59); Monocytes % (auto) 8.4 %; Neutrophils # (auto) 2.33 K/uL (1.40-6.50); Neutrophils % (auto) 51.2 %; Platelet Count 188 K/uL (130-400); RDW Coefficient of Variation 15.4 % (11.5-14.5); RDW Standard Deviation 51.7 fL (36.4-46.3); Red Blood Count 2.95 M/uL (4.20-5.40); Reticulocyte % 1.1 % (0.5-2.0); Reticulocytes # 0.03 10^6/uL (0.02-0.10); White Blood Count 4.55 K/ul (4.8-10.8)
[2022-09-02] MEDS: oxyBUTYnin chloride 5 MG TAB PO SCH (07:41)
[2022-09-02] MEDS: carvediloL 6.25 MG TAB PO SCH (07:41)
[2022-09-02] MEDS: PANTOprazole 40 MG in SYRINGE 0 ML IV SCH (07:42)
[2022-09-02] MEDS: SUCRALFATE 1 GM/10 ML UDC PO SCH ×2 (07:46→10:33)
[2022-09-02 08:11] LABS: Total Protein 4.7 gm/dl (6.0-8.3)
[2022-09-02 08:12] LABS: Albumin Globulin Ratio 1.6 (0.9-2); Albumin Level 2.9 gm/dl (3.4-5.0); BUN Creatinine Ratio 12.5 (10-20); Bilirubin,Total 0.3 mg/dl (0.2-1.0); Calcium 7.7 mg/dl (8.6-10.3); Creatinine Clr Calc Pharmacy 45.3 ml/min; Est GFR (African American) 72.9 ml/min; Est GFR (Non-African American) 62.9 ml/min; Globulin 1.8 gm/dl (2.5-4.0); Magnesium 2.1 mg/dl (1.7-2.4); Potassium 3.1 mmol/L (3.5-5.1)
[2022-09-02 08:13] LABS: Ferritin 45.5 ng/ml (8-388)
[2022-09-02 08:14] LABS: Vitamin B12 1297 pg/ml (180-914)
[2022-09-02] MEDS ORDERED: ATORVASTATIN 40 MG TAB PO SCH (09:00)
[2022-09-02] MEDS ORDERED: buPROPion XL 300 MG TABCR PO SCH (09:00)
[2022-09-02] MEDS ORDERED: ASPIRIN 81 MG ECTAB PO SCH (09:00)
[2022-09-02] MEDS ORDERED: POTASSIUM CHLORIDE CRTAB 20 MEQ TABCR PO STA (10:04)
--- NOTE | 2022-09-02 13:46 | Discharge Summary ---
Date of Service September 02, 2022 Admission HPI Per Admitting Provider Elizabeth Méndez is a 62 year old female with intellectual disability who presents to the ER via EMS from the [place] due to small bowel obstruction seen on outpatient CT. The patient initial reports no problems. She is unsure why she is here or why she had a recent EGD. On direct questioning that the triage was she had abdominal pain this morning she agrees she did have some pain after breakfast around 8am, severity 8/10, lasted for 30 minutes. She reports never having a pain previously. She denies any problems with her memory. On discussion with the [place] the patient has intellectual disability and does not make her own medical decisions, her POA is her sister. She doesn't usually complain of anything and is usually quiet. She has a chronic problem of frequent emesis which staff at the [place] think is relatively chronic and not getting worse. On discussion with her sister Abeba reason for recent EGD and CT was the emesis was getting worse with some coffee-ground therefore she had an appointment with gastroenterology. On discussion with Dr Terrell the patient has unusual duodenal anatomy and he was unable to pass the 2nd part of the duodenum therefore organized outpatient CT to assess for a stricture or mass. Principal Diagnosis abnormal CT scan Discharge Exam The patient is awake, alert and oriented 3, well developed and well nourished, normocephalic and atraumatic, lying in bed and in no acute distress. HEENT--PERRL, EOMI, mucous membranes and oropharynx mildly dry Neck--supple. No JVD. No bruits. Thyroid normal, trachea midline, no adenopathy. Heart--normal S1 and S2. No murmurs, rubs or gallops. Lungs--clear bilaterally, no respiratory distress, no accessory muscle use. Abdomen--normal bowel sounds and soft. Mild epigastric and left sided abdominal pain Extremities--no cyanosis or clubbing. No edema. Dermatologic--normal skin turgor, normal color, no abnormal lymph nodes, no rash. Neurologic--cranial nerves II through XII grossly intact. Rheumatologic--normal range of motion. Psychiatric--normal affect. Discharge Data Allergies Allergy/AdvReac Type Severity Reaction Status Date / Time No Known Allergies Allergy NONE Verified 09/01/22 12:41 Consultations 09/01/22 11:49 ED Decision to Admit Stat 09/01/22 12:00 Consult General Surgery Stat 09/01/22 12:02 Consult General Surgery Stat Hospital Course (1) Intellectual disability: Patient orientated and comes across not having any problems but also unable to tell me why she had EGD and CT scan recently. Typical she does not have any complaints. POA should be contacted daily for updates as the patient does not make her own medical decision. Laverne Sloan ([phone]) Of note the patient usually has explosive diarrhea, urine incontinence at baseline (2) Hypomagnesemia: Mg level 1.1. 4g Mg sulfate ordered. Repeat with AM labs (3) SBO (small bowel obstruction): This appears to be a chronic finding and now picked up with routine outpatient scan. This was the main reason she was sent ot the ER although was also present on report from CT in June 2021. Unable to get an accurate history from the patient due to intellectual disability - she normally has no complaints. Recommend admission for surgery and GI consult in addition to replacement of magnesium but suspect diet can be quickly advanced Per triage she was complaining of abdominal pain this morning, this is collaborated by the patient but only after direct questioning and difficult to know whether she is just agreeing with me. Per the [place] she is just having emesis without abdominal pain. Not clearly getting worse. Per her sister she is having emesis including coffee-ground which has been getting worse over the last month prompting recent EGD and subsequent CT. The patient generally does not complain of anything including pain. However, general surgery evaluated and determined that the CT findings were chronic and no surgery was indicated at this time, they recommended follow up with [facility] I spoke to the sister ( a quantity surveyor ) and she agreed with plans for d/c and follow up with [facility] (4) Bone marrow disease: Follow up with hematology ?MDS Frequent Procrit injections (5) Anemia: Follow with hematology apparently Hgb 10.3 is much better than normal. Will get basic workup in the morning in case she qualifies for iron infusion while here (6) Coffee ground emesis: Recent EGD unable to pass duodenum. Continue pantoprazole 40mg IV BID (7) Ischemic cardiomyopathy: Continue carvedilol (8) CAD (coronary artery disease): Continue ASA, carvedilol, atorvastatin (9) Hypertension: Continue carvedilol Plan d/c to [place] Total Time Total Time Spent Total Time Spent (In Minutes): 35 Discharge Plan Discharge Items Patient Disposition: Personal [facility] Reason For Visit: SMALL BOWEL OBSTRUCTION Discharge Diagnosis: abdominal pain Activity: Resume your previous activity Non-emergency contact: Primary Care Provider Call non-emergency contact if: you have any medication questions and your symptoms worsen Follow-up/Referrals: Alyssa Jimenez CRNP [Primary Care Provider] - Diet: Regular Addtl Attending Provider Instructions: please follow up with your doctors at [facility] Pending Studies at Discharge: No Stand-Alone Forms: My [facility] Spotter, Smoking Cessation Skilled Items Lines: None Urinary Catheter: No Medications and DC Order Prescriptions: Continued sucralfate [Carafate] 100 mg/mL suspension 10 ml PO ACHS Qty: 400 0RF Rx Instructions: swish in mouth and swallow; TAKE BEFORE MEALS AND AT BEDTIME. atorvastatin 40 mg tablet 40 mg PO QAM acetaminophen [Tylenol] 325 mg Tablet 650 mg PO Q6 PRN (Reason: .LEFT HIP PAIN) carvedilol 6.25 mg tablet 6.25 mg PO AMHS loperamide 2 mg Capsule 2 mg PO QID PRN (Reason: Diarrhea) ondansetron HCl 4 mg tablet 4 mg PO Q6 PRN (Reason: Nausea) aspirin 81 mg Tablet,Delayed Release (Dr/Ec) 81 mg PO QAM calcium carbonate [Calcium Antacid] 200 mg calcium (500 mg) Tablet,Chewable 500 mg PO DAILY furosemide 20 mg tablet 20 mg PO QAM oxybutynin chloride 5 mg Tablet 5 mg PO TID Ensure Liquid 1 ea PO TID mirtazapine 7.5 mg tablet 15 mg PO HS cholecalciferol (vitamin D3) [Vitamin D3] 125 mcg (5,000 unit) Tablet 62.5 mcg PO QAM diclofenac sodium [Voltaren Arthritis Pain] 1 % Gel 4 g EXT Q6H PRN (Reason: pain (scale score 1-3)) Qty: 100 0RF B-complex with vitamin C Tablet 1 tab PO QAM bupropion HCl 300 mg tablet extended release 24 hr 300 mg PO QAM cyanocobalamin (vitamin B-12) [Vitamin B-12] 1,000 mcg Tablet 1,000 mcg PO QAM pantoprazole 40 mg Tablet,Delayed Release (Dr/Ec) 40 mg PO BID Discharge Orders: Discharge Order (Routine); Ordered 09/02/22 Ordered By: Ame Leos Admission Data Admit Date/Time: 09/01/22 12:47 Attending Provider: Ame Leos Admit Provider: Denis Sy Primary Care Provider: Alyssa Jimenez Other Providers: Stanley Enriquez ; Denis Sy Other Interventions: Discharge Summary Assessment (RN) Last Done: 09/02/22 10:36 Coding Level of Care Code 89188 INP/OBS DISCH >30 MIN Diagnoses Intellectual disability F79 Hypomagnesemia E83.42 SBO (small bowel obstruction) K56.609 Bone marrow disease D75.9 Anemia D64.9 Anemia type: unspecified type Coffee ground emesis K92.0 Ischemic cardiomyopathy I25.5 CAD (coronary artery disease) I25.10 Hypertension I10 Time Spent (min) 35
== END 2022-09-02 13:12 | disposition home or self-care (01) | DRG 392 ==
LOC: ED 11:13 → SUATTDRO 12:47 → 3W 12:47

== ENCOUNTER 2022-10-09 14:25 | Inpatient (IN) ==
--- NOTE | 2022-10-09 15:47 | Emergency Department Note ---
History of Present Illness General Chief complaint: GI Bleed Stated complaint: GI BLEED Time Seen by Provider: 10/09/22 15:15 History of Present Illness Provider complaint: GI bleed 59-year-old female presents emergency department for GI bleed. Per nursing report from EMS the patient was sent from her living facility to be admitted for GI bleed. Patient has severe intellectual disability history is limited. She reports no pain. Home Medications Medication Instructions Recorded Confirmed Type acetaminophen 325 mg tablet 650 mg PO Q6 PRN PAIN--LEFT HIP 12/24/21 10/09/22 History (Tylenol) atorvastatin 40 mg tablet 40 mg PO QAM 12/24/21 10/09/22 History calcium carbonate 200 mg calcium 500 mg PO QAM 12/24/21 10/09/22 History (500 mg) chewable tablet (Calcium Antacid) carvedilol 6.25 mg tablet 6.25 mg PO BID 12/24/21 10/09/22 History cholecalciferol (vitamin D3) 125 62.5 mcg PO QAM 12/24/21 10/09/22 History mcg (5,000 unit) tablet (Vitamin D3) food supplemt, lactose-reduced 1 ea PO TID PRN IF EAT 25% OR LESS 12/24/21 10/09/22 History (Ensure oral liquid) OF EACH MEAL furosemide 20 mg tablet 20 mg PO QAM 12/24/21 10/09/22 History loperamide 2 mg capsule 2 mg PO QID PRN Diarrhea 12/24/21 10/09/22 History ondansetron HCl 4 mg tablet 4 mg PO Q6 PRN Nausea 12/24/21 10/09/22 History oxybutynin chloride 5 mg tablet 5 mg PO TID 12/24/21 10/09/22 History bupropion HCl 300 mg 24 hr tablet, 300 mg PO QAM 06/04/22 10/09/22 History extended release cyanocobalamin (vitamin B-12) 1,000 mcg PO QAM 07/31/22 10/09/22 History 1,000 mcg tablet (Vitamin B-12) pantoprazole 40 mg tablet,delayed 40 mg PO BID 07/31/22 10/09/22 History release sucralfate 100 mg/mL oral 10 ml PO ACHS #400 mL 07/31/22 10/09/22 Rx suspension (Carafate) B-complex with vitamin C 1 tab PO QAM 10/09/22 10/09/22 History diclofenac sodium 1 % topical gel 2 g EXT TID 10/09/22 10/09/22 History (Voltaren Arthritis Pain) mirtazapine 30 mg tablet 30 mg PO HS 10/09/22 10/09/22 History Allergies Allergy/AdvReac Type Severity Reaction Status Date / Time No Known Allergies Allergy NONE Verified 10/09/22 17:35 Past Med/Surg History Medical History 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 per [facility] oncology records CAD (coronary artery disease) NSTEMI s/p MARYBETH to LAD 10/2008 Chronic RCA occlusion with adequate collaterals Chronic anemia R/t chronic renal disease per [facility] oncology records, stable CKD (chronic kidney disease), stage III Coffee ground emesis x 1 coffee ground and 1 dark brown emesis- week of 07/21/22 Hypertension Ischemic cardiomyopathy Compensated, functional class 2 per 04/2022 [facility] cardiology visit Lives in senior facility Resident of [facility] Mental disability also has impaired short term memory; sister Laverne has POA Surgical History History of cardiac cath 2008 > stent 2017 > known proximal RCA occlusion with left to right collaterals, medical management recommended No significant past surgical history Family History Other Medical history non-contributory Social History Smoking Status: Never smoker Hx Alcohol Use: No Hx Substance Use: No Preferred Language: Peruvian Communication Ability: Effective Communication Ability Comment: mental disability Sap Portal Architect Required: No Beliefs That Will Affect Care: None marital status: Current Living Situation: Personal Care Facility Current Living Situation Comment: [facility] Feels Safe at Home: Yes Assistive Devices: Walker Physical Exam Vital Signs Vital Signs - 24 hr 10/09/22 14:37 10/09/22 14:36 10/09/22 15:49 Temperature 36.7 C Temperature Source Oral Pulse Rate 86 83 76 Pulse Rate [Right Brachial] Pulse Rhythm Regular Pulse Rhythm [Right Brachial] Pulse Strength [Right Brachial] Respiratory Rate 12 19 Respiratory Effort / Characteristics Non-Labored Respiratory Depth Normal Respiratory Pattern Regular Blood Pressure 114/81 Blood Pressure [Right Arm] Blood Pressure Mean 92 Blood Pressure Mean [Right Arm] Blood Pressure Position Lying Pulse Oximetry 98 100 Oxygen Delivery Method Room Air Room Air Sepsis Recent Fever Within 48 Hours No Sepsis New/Unexplained Change in Mental Status N/A Sepsis Action Taken by Nursing No Action Required 10/09/22 15:50 10/09/22 18:04 10/09/22 18:52 Temperature Temperature Source Pulse Rate 73 Pulse Rate [Right Brachial] 78 76 Pulse Rhythm Pulse Rhythm [Right Brachial] Regular Regular Pulse Strength [Right Brachial] Normal Normal Respiratory Rate 19 18 Respiratory Effort / Characteristics Non-Labored Spontaneous Non-Labored Spontaneous Respiratory Depth Normal Normal Respiratory Pattern Regular Blood Pressure Blood Pressure [Right Arm] 142/61 H 146/60 H Blood Pressure Mean Blood Pressure Mean [Right Arm] 88 88 Blood Pressure Position Pulse Oximetry 100 100 Oxygen Delivery Method Room Air Room Air Sepsis Recent Fever Within 48 Hours Sepsis New/Unexplained Change in Mental Status Sepsis Action Taken by Nursing Physical Exam CV: Normal rate, regular rhythm, normal heart sounds and intact distal pulses. There is no peripheral edema. Palpable radial pulses bue. PULM/CHEST: Effort normal and breath sounds normal. No respiratory distress. No stridor. She has no wheezes. She has no rales. ABD: The abdomen is soft. Bowel sounds are normal. She has no distension. No mass is present. There is no tenderness. There is no rebound, no guarding Rectal: Performed with female nursing java consultant Allyssa at bedside. No bright red blood per rectum. Hemoccult negative. Course Course 1515: The patient was evaluated in room B9. A complete history and physical exam was performed Cardiac monitoring: An order was placed for continuous cardiac monitoring. The monitor shows a rate of 90 with sinus interpreted by me 1653: Vital signs stable. Labs show hemoglobin of 9.7. White blood cell count 10.81. INR 3.4. APTT 45. Creatinine 1.45. Alkaline phosphatase 126. I spoke with the patient's sister Abeba Parikh [phone]. She states that the patient has been having an elevated INR and they are unsure why. She states the patient is not on Coumadin. She reports the patient has been having bloody stools and has not been eating. She reports that the patient had a CT done at [facility] yesterday. Will attempt to obtain the results from [facility] about the CT. 170: natural sciences manager Aydee accessed the epic records online and said the CT of the abdomen pelvis was not read. Will reorder the CT abdomen pelvis. 1814: Vital signs stable. CT of the head within normal limits. CT of the abdomen pelvis showed interval progression of the high-grade small bowel obstruction at the level of the proximal addendum where there is a focal thickening of the jejunum resulting in severe distention of the duodenum. This is concerning for small bowel mass at this location a stricture or adhesion could appear similar. I discussed these findings with general surgery on-call Dr. Enriquez who has also seen the patient in the past. He states that there is no need for any acute surgical intervention and that he will not perform any surgery on the patient with her INR being elevated. He recommends speaking with GI to see if they need to do any further workup. He states if the patient is admitted to this facility he can evaluate her in the morning. 1849: Spoke with Dr. Terrell gastroenterology. He states that the family needs to be contacted and find out what the goals of care are for the patient. He states that if they would want aggressive treatment for the patient and then the patient might need to be transferred to a tertiary care facility like [place]. Will attempt to call the patient's family. 1908: Made multiple attempts to call Ms. Parikh back however no response. I spoke with Sandi Cabrera [phone] who is a contact from the [place] which is the patient's residence. She states she is not the primary decision maker for the patient's healthcare and states she is going to try to get us in touch with Ms. Parikh and will call us back with another phone number she can be reached at as we have been unable to reach her on the [phone] number that I spoke to her earlier on. 1938: Multiple attempts were made to call Ms Parikh the patient's sister still no response. No callback from Ms. Cabrera the person from the [place] either. I was able to reach the patient's other sister Dr. Lana Hyman. Dr. Hyman states she is well aware of the patient's histories and problems and states that both herself and her sister Ms. Parikh helping coordinate care and making medical decisions for the patient. Dr. Hyman states that the patient's INR has been elevated for the last 10 years. She states she is frustrated as the patient has seen multiple physicians but no clear cause has been identified for the patient's symptoms. I discussed Dr. Scott potential recommendations for transfer if aggressive treatment would want to be pursued. Dr. Hyman stated that she did not want the patient transferred to a tertiary care facility at this time and she stated that the goals of therapy for the patient do not include chemotherapy or any large surgeries. Dr. Hyman states that they want the patient to be as comfortable as possible. Given this we will not pursue t ransfer at this time. Patient will be admitted to the [facility] hospitalist team. 2000: Dr. Rojas [facility] hospitalist aware of the patient. Dr. Terrell also aware that the goals of therapy do not include chemotherapy or large surgeries and that the patient be admitted to the hospitalist team and he will be on consult. Administered Medications Sodium Chloride (Nss) 500 mls @ 125 mls/hr IV .Q4H TAMMY Stop: 11/08/22 15:29 Last Admin: 10/09/22 16:19 Dose: 125 mls/hr Documented By: GAURAV Discontinued Medications Ioversol (Optiray 320 100ml) 90 ml IV ONCE ONE Stop: 10/09/22 17:27 Last Admin: 10/09/22 17:26 Dose: 90 ml Documented By: RENETTA Medical Decision Making Laboratory Data Attestation: I reviewed the patient's lab results. 10/09/22 14:01 10/09/22 14:01 Lab Results 10/09/22 10/09/22 10/09/22 Range/Units 14:01 14:01 14:01 WBC 10.81 H (4.8-10.8) K/ul RBC 3.46 L (4.20-5.40) M/uL Hgb 9.7 L (12.0-16.0) g/dl Hct 29.8 L (37.0-47.0) % MCV 86.1 (80.0-100.0) fL MCH 28.0 (25.0-34.0) pg MCHC 32.6 (32.0-36.0) g/dL RDW Std Deviation 51.9 H (36.4-46.3) fL RDW Coeff of Bob 16.4 H (11.5-14.5) % Plt Count 368 (130-400) K/uL MPV 9.5 (9.4-12.4) fL Immature Gran % (Auto) 0.4 % Neut % (Auto) 73.4 % Lymph % (Auto) 18.5 % [place] % (Auto) 6.9 % Eos % (Auto) 0.6 % Baso % (Auto) 0.2 % Neut # (Auto) 7.93 H (1.40-6.50) K/uL Lymph # (Auto) 2.00 (1.2-3.4) K/uL [place] # (Auto) 0.75 H (0.11-0.59) K/uL Eos # (Auto) 0.07 (0-0.50) K/uL Baso # (Auto) 0.02 (0-0.2) K/uL Immature Gran # (Auto) 0.04 (0.01-0.20) K/uL PT 34.1 H (9.0-12.0) Seconds INR 3.4 H (0.9-1.1) APTT 45.0 H* (21.0-31.0) Seconds PTT Ratio 1.6 Sodium 140 (136-145) mmol/L Potassium 3.3 L (3.5-5.1) mmol/L Chloride 109 H (98-107) mmol/L Carbon Dioxide 23 (21-32) mmol/L Anion Gap 8 (3-11) BUN 18 (6-23) mg/dl Creatinine 1.45 H (0.6-1.2) mg/dl Est Cr Clr Drug Dosing 33.0 ml/min Est GFR ( Amer) 44.3 ml/min Est GFR (Non-Af Amer) 38.2 ml/min BUN/Creatinine Ratio 12.4 (10-20) Glucose 114 H (70-99(Fasting)) mg/dl Calcium 8.4 L (8.6-10.3) mg/dl Total Bilirubin 0.3 (0.2-1.0) mg/dl Direct Bilirubin 0.1 (0-0.2) mg/dl AST 22 (13-39) U/L ALT 20 (7-52) U/L Alkaline Phosphatase 126 H (34-104) U/L Total Protein 5.8 L (6.0-8.3) gm/dl Albumin 3.3 L (3.4-5.0) gm/dl Lipase 33 (11-82) U/L Blood Type Antibody Screen 10/09/22 Range/Units 15:30 WBC (4.8-10.8) K/ul RBC (4.20-5.40) M/uL Hgb (12.0-16.0) g/dl Hct (37.0-47.0) % MCV (80.0-100.0) fL MCH (25.0-34.0) pg MCHC (32.0-36.0) g/dL RDW Std Deviation (36.4-46.3) fL RDW Coeff of Bob (11.5-14.5) % Plt Count (130-400) K/uL MPV (9.4-12.4) fL Immature Gran % (Auto) % Neut % (Auto) % Lymph % (Auto) % [place] % (Auto) % Eos % (Auto) % Baso % (Auto) % Neut # (Auto) (1.40-6.50) K/uL Lymph # (Auto) (1.2-3.4) K/uL [place] # (Auto) (0.11-0.59) K/uL Eos # (Auto) (0-0.50) K/uL Baso # (Auto) (0-0.2) K/uL Immature Gran # (Auto) (0.01-0.20) K/uL PT (9.0-12.0) Seconds INR (0.9-1.1) APTT (21.0-31.0) Seconds PTT Ratio Sodium (136-145) mmol/L Potassium (3.5-5.1) mmol/L Chloride (98-107) mmol/L Carbon Dioxide (21-32) mmol/L Anion Gap (3-11) BUN (6-23) mg/dl Creatinine (0.6-1.2) mg/dl Est Cr Clr Drug Dosing ml/min Est GFR ( Amer) ml/min Est GFR (Non-Af Amer) ml/min BUN/Creatinine Ratio (10-20) Glucose (70-99(Fasting)) mg/dl Calcium (8.6-10.3) mg/dl Total Bilirubin (0.2-1.0) mg/dl Direct Bilirubin (0-0.2) mg/dl AST (13-39) U/L ALT (7-52) U/L Alkaline Phosphatase (34-104) U/L Total Protein (6.0-8.3) gm/dl Albumin (3.4-5.0) gm/dl Lipase (11-82) U/L Blood Type B Positive Antibody Screen NEGATIVE Imaging Data Attestation: I personally reviewed and interpreted this imaging study as follows: My Impression: CT head: No I[facility] Radiologist's Impression: Abdomen/Pelvis CT 10/09/22 17:[address] WITH IV CONTRAST CT DOSE: 1174.16 mGy.cm HISTORY: Generalized abdominal pain. GI bleed. Elevated INR. TECHNIQUE: Multiaxial CT images of the abdomen and pelvis were performed following the use of intravenous contrast. A dose lowering technique was util ized adhering to the principles of ALARA. COMPARISON STUDY: None. FINDINGS: Trace right pleural effusion. Mild dependent changes seen at the lung bases. No pneumoperitoneum. No pneumatosis. Advanced degenerative changes within the bilateral hips. No suspicious lytic or blastic osseous lesions. Trace pericardial effusion is noted. Severe coronary artery calcifications are present. The esophagus is mildly distended and partially fluid-filled. There is mild thickening of the distal esophagus. The stomach is decompressed. However, there are severe dilatation of the duodenum which is completely fluid-filled. This measures up to 7.9 cm in diameter. This is slightly progressed. Focal transition point within the proximal jejunum just beyond the ligament of Treitz best seen on image 139. There is focal thickening of the small bowel at this level. Therefore, this is concerning for an underlying small bowel mass. A focal stricture or adhesion could also have a similar appearance. The remaining loops of large and small bowel are fluid-filled but are normal and caliber. This could be due to the proximal small bowel obstruction or an underlying gastroenteritis. Mild circumferential thickening of the rectum with mild mucosal hyperenhancement. This may represent a nonspecific proctitis contrast seen within the bladder. The uterus and bilateral adnexa are unremarkable. No significant pelvic free fluid. Mild perirectal fat stranding is noted. The liver, spleen, adrenal glands, and pancreas are unremarkable. Contrast within the gallbladder suggesting vicarious excretion. No gallbladder wall thickening. The main portal vein is patent. Calcified plaque within the normal caliber abdominal aorta. No retroperitoneal or pelvic lymphadenopathy. There is contrast within the urinary system/bladder. This is likely due to a prior CT examination. No bladder wall thickening. Mild right-sided hydronephrosis, unchanged. This extends to the level of mid right ureter is likely due to compression from the distended duodenum. Multiple left peripelvic renal cysts are again noted. A 9 mm calcified disc protrusion at L2-L3 again noted resulting in moderate to severe central canal narrowing. This is similar to the prior study. IMPRESSION: 1. Interval progression of the high-grade proximal small bowel obstruction at the level the proximal jejunum where there is focal thickening of the jejunum re sulting in severe distention of the duodenum. This is concerning for a small bowel mass at this location. A stricture or adhesion could also have a similar appearance. 2. Mild right hydronephrosis, unchanged. This is likely due to compression of the mid right ureter from the severely distended duodenum. 3. Mild rectal wall thickening with adjacent fat stranding. This is consistent with a nonspecific proctitis. 4. The remaining loops of large and small bowel are fluid-filled and normal in caliber. This could be due to the proximal small bowel obstruction or a superimposed gastroenteritis. ACT 112: Negative or not required by law. Electronically signed by: Albert Eubanks M.D. 10/09/2022 6:[address] 10/09/22 17:[address] DOSE: HISTORY: Altered mental status. TECHNIQUE: Multiaxial CT images of the head were performed without the use of intravenous contrast. Automated exposure control was utilized for this study. A dose lowering technique was utilized adhering to the principles of ALARA. Comparison: Head CT 10/02/2021. Findings: The paranasal sinuses and mastoid air cells are clear. The calvarium and skull base are intact. The ventricles and sulci are within normal limits. There is no mass, hematoma, midline shift, or acute infarct. Impression: No acute intracranial abnormality. ACT 112: Negative or not required by law. Electronically signed by: Albert Eubanks M.D. 10/09/2022 6:04 PM [facility] Narrative 1515: The patient was evaluated in room B9. A complete history and physical exam was performed Cardiac monitoring: An order was placed for continuous cardiac monitoring. The monitor shows a rate of 90 with sinus interpreted by me 1653: Vital signs stable. Labs show hemoglobin of 9.7. White blood cell count 10.81. INR 3.4. APTT 45. Creatinine 1.45. Alkaline phosphatase 126. I spoke with the patient's sister Abeba Parikh [phone]. She states that the patient has been having an elevated INR and they are unsure why. She states the patient is not on Coumadin. She reports the patient has been having bloody stools and has not been eating. She reports that the patient had a CT done at [facility] yesterday. Will attempt to obtain the results from [facility] about the CT. 170: natural sciences manager Aydee accessed the [facility] records online and said the CT of the abdomen pelvis was not read. Will reorder the CT abdomen pelvis. 181: Vital signs stable. CT of the head within normal limits. CT of the abdomen pelvis showed interval progression of the high-grade small bowel obstru ction at the level of the proximal addendum where there is a focal thickening of the jejunum resulting in severe distention of the duodenum. This is concerning for small bowel mass at this location a stricture or adhesion could appear similar. I discussed these findings with general surgery on-call Dr. Enriquez who has also seen the patient in the past. He states that there is no need for any acute surgical intervention and that he will not perform any surgery on the patient with her INR being elevated. He recommends speaking with GI to see if they need to do any further workup. He states if the patient is admitted to this facility he can evaluate her in the morning. 185: Spoke with Dr. Terrell gastroenterology. He states that the family needs to be contacted and find out what the goals of care are for the patient. He states that if they would want aggressive treatment for the patient and then the patient might need to be transferred to a tertiary care facility like [place]. Will attempt to call the patient's family. 190: Made multiple attempts to call Ms. Parikh back however no response. I spoke with Sandi Cabrera [phone] who is a contact from the [place] which is the patient's residence. She states she is not the primary decision maker for the patient's healthcare and states she is going to try to get us in touch with Ms. Parikh and will call us back with another phone number she can be reached at as we have been unable to reach her on the [phone] number that I spoke to her earlier on. 1938: Multiple attempts were made to call Ms Parikh the patient's sister still no response. No callback from Ms. Cabrera the person from the [place] either. I was able to reach the patient's other sister Dr. Lana Hyman. Dr. Hyman states she is well aware of the patient's histories and problems and states that both herself and her sister Ms. Parikh helping coordinate care and making medical decisions for the patient. Dr. Hyman states that the patient's INR has been elevated for the last 10 years. She states she is frustrated as the patient has seen multiple physicians but no clear cause has been identified for the patient's symptoms. I discussed Dr. Scott potential recommendations for transfer if aggressive treatment would want to be pursued. Dr. Hyman stated t hat she did not want the patient transferred to a tertiary care facility at this time and she stated that the goals of therapy for the patient do not include chemotherapy or any large surgeries. Dr. Hyman states that they want the patient to be as comfortable as possible. Given this we will not pursue transfer at this time. Patient will be admitted to the [facility] hospitalist team. 2000: Dr. Rojas [facility] hospitalist aware of the patient. Dr. Terrell also aware that the goals of therapy do not include chemotherapy or large surgeries and that the patient be admitted to the hospitalist team and he will be on consult. Impression & Plan SBO (small bowel obstruction), Elevated INR, Small bowel mass, Intellectual disability Discharge Plan Visit Data Chief Complaint: GI Bleed Stated Complaint: GI BLEED ED Provider: Mickey Ball Prescriptions Prescriptions: No Action sucralfate [Carafate] 100 mg/mL suspension 10 ml PO ACHS Qty: 400 0RF Rx Instructions: swish in mouth and swallow; TAKE BEFORE MEALS AND AT BEDTIME. mirtazapine 30 mg tablet 30 mg PO HS B-complex with vitamin C [Nephro-Damien] Tablet 1 tab PO QAM diclofenac sodium [Voltaren Arthritis Pain] 1 % gel 2 g EXT TID Rx Instructions: 0700, 1200, & 1700 atorvastatin 40 mg tablet 40 mg PO QAM acetaminophen [Tylenol] 325 mg Tablet 650 mg PO Q6 MDD 3 GRAMS APAP/24 HOURS PRN (Reason: PAIN--LEFT HIP) carvedilol 6.25 mg tablet 6.25 mg PO BID loperamide 2 mg Capsule 2 mg PO QID PRN (Reason: Diarrhea) ondansetron HCl 4 mg tablet 4 mg PO Q6 PRN (Reason: Nausea) calcium carbonate [Calcium Antacid] 200 mg calcium (500 mg) Tablet,Chewable 500 mg PO QAM furosemide 20 mg tablet 20 mg PO QAM oxybutynin chloride 5 mg Tablet 5 mg PO TID Rx Instructions: 0730, 1400, & 2000 Ensure Liquid 1 ea PO TID PRN (Reason: IF EAT 25% OR LESS OF EACH MEAL) cholecalciferol (vitamin D3) [Vitamin D3] 125 mcg (5,000 unit) Tablet 62.5 mcg PO QAM bupropion HCl 300 mg tablet extended release 24 hr 300 mg PO QAM cyanocobalamin (vitamin B-12) [Vitamin B-12] 1,000 mcg Tablet 1,000 mcg PO QAM pantoprazole 40 mg Tablet,Delayed Release (Dr/Ec) 40 mg PO BID
[2022-10-09 15:56] LABS: Basophils # (auto) 0.02 K/uL (0-0.2); Basophils % (auto) 0.2 %; Eosinophils # (auto) 0.07 K/uL (0-0.50); Eosinophils % (auto) 0.6 %; Hematocrit (blood only) 29.8 % (37.0-47.0); Hemoglobin 9.7 g/dl (12.0-16.0); Immature Granulocytes # (auto) 0.04 K/uL (0.01-0.20); Immature Granulocytes % (auto) 0.4 %; Lymphocytes % (auto) 18.5 %; Mean Corpuscular Hgb Conc 32.6 g/dL (32.0-36.0); Mean Corpuscular Volume 86.1 fL (80.0-100.0); Mean Platelet Volume 9.5 fL (9.4-12.4); Monocytes # (auto) 0.75 K/uL (0.11-0.59); Monocytes % (auto) 6.9 %; Neutrophils # (auto) 7.93 K/uL (1.40-6.50); Neutrophils % (auto) 73.4 %; Platelet Count 368 K/uL (130-400); RDW Coefficient of Variation 16.4 % (11.5-14.5); RDW Standard Deviation 51.9 fL (36.4-46.3); Red Blood Count 3.46 M/uL (4.20-5.40); White Blood Count 10.81 K/ul (4.8-10.8)
[2022-10-09 16:16] LABS: Albumin Level 3.3 gm/dl (3.4-5.0); BUN Creatinine Ratio 12.4 (10-20); Bilirubin Direct 0.1 mg/dl (0-0.2); Bilirubin,Total 0.3 mg/dl (0.2-1.0); Calcium 8.4 mg/dl (8.6-10.3); Est GFR (African American) 44.3 ml/min; Est GFR (Non-African American) 38.2 ml/min; Potassium 3.3 mmol/L (3.5-5.1); Total Protein 5.8 gm/dl (6.0-8.3)
[2022-10-09] MEDS: SODIUM CHLORIDE 0.9% 500 ML IV SCH ×2 (16:19→20:44)
[2022-10-09 16:40] LABS: INR 3.4 (0.9-1.1); Partial Thromboplastin Ratio 1.6; Prothrombin Time 34.1 Seconds (9.0-12.0)
--- NOTE | 2022-10-09 17:08 | Electrocardiogram Report ---
Test Reason : Blood Pressure : / mmHG Vent. Rate : 073 BPM Atrial Rate : 073 BPM P-R Int : 194 ms QRS Dur : 084 ms QT Int : 382 ms P-R-T Axes : 061 054 040 degrees QTc Int : 420 ms Normal sinus rhythm Cannot rule out Inferior infarct , age undetermined Abnormal ECG When compared with ECG of 10-JUN-2022 15:02, Nonspecific T wave abnormality now evident in Anterior leads Confirmed by Froylan Vu ([id number]) on 10/09/2022 5:08:09 PM Referred By: Confirmed By:Loernzo Vu
[2022-10-09] MEDS ORDERED: OPTIRAY 320 100ml IV ONE (17:26)
--- NOTE | 2022-10-09 18:04 | CT Scan Report ---
ABDOMEN AND PELVIS CT WITH IV CONTRAST CT DOSE: 1174.16 mGy.cm HISTORY: Generalized abdominal pain. GI bleed. Elevated INR. TECHNIQUE: Multiaxial CT images of the abdomen and pelvis were performed following the use of intrave nous contrast. A dose lowering technique was utilized adhering to the principles of ALARA. COMPARISON STUDY: None. FINDINGS: Trace right pleural effusion. Mild dependent changes seen at the lung bases. No pneumoperit oneum. No pneumatosis. Advanced degenerative changes within the bilateral hips. No suspicious lytic o r blastic osseous lesions. Trace pericardial effusion is noted. Severe coronary artery calcifications are present. The esophagus is mildly distended and partially fluid-filled. There is mild thickening of the distal esophagus. The stomach is decompressed. However, there are severe dilatation of the duo denum which is completely fluid-filled. This measures up to 7.9 cm in diameter. This is slightly prog ressed. Focal transition point within the proximal jejunum just beyond the ligament of Treitz best se en on image 139. There is focal thickening of the small bowel at this level. Therefore, this is sully rning for an underlying small bowel mass. A focal stricture or adhesion could also have a similar colten earance. The remaining loops of large and small bowel are fluid-filled but are normal and caliber. Th is could be due to the proximal small bowel obstruction or an underlying gastroenteritis. Mild circum ferential thickening of the rectum with mild mucosal hyperenhancement. This may represent a nonspecif ic proctitis contrast seen within the bladder. The uterus and bilateral adnexa are unremarkable. No s ignificant pelvic free fluid. Mild perirectal fat stranding is noted. The liver, spleen, adrenal glan ds, and pancreas are unremarkable. Contrast within the gallbladder suggesting vicarious excretion. No gallbladder wall thickening. The main portal vein is patent. Calcified plaque within the normal helio chuckie abdominal aorta. No retroperitoneal or pelvic lymphadenopathy. There is contrast within the urina ry system/bladder. This is likely due to a prior CT examination. No bladder wall thickening. Mild rig ht-sided hydronephrosis, unchanged. This extends to the level of mid right ureter is likely due to co mpression from the distended duodenum. Multiple left peripelvic renal cysts are again noted. A 9 mm c alcified disc protrusion at L2-L3 again noted resulting in moderate to severe central canal narrowing . This is similar to the prior study. IMPRESSION: 1. Interval progression of the high-grade proximal small bowel obstruction at the level the proximal jejunum where there is focal thickening of the jejunum resulting in severe distention of the duodenum . This is concerning for a small bowel mass at this location. A stricture or adhesion could also have a similar appearance. 2. Mild right hydronephrosis, unchanged. This is likely due to compression of the mid right ureter fr om the severely distended duodenum. 3. Mild rectal wall thickening with adjacent fat stranding. This is consistent with a nonspecific pro ctitis. 4. The remaining loops of large and small bowel are fluid-filled and normal in caliber. This could be due to the proximal small bowel obstruction or a superimposed gastroenteritis. ACT 112: Negative or not required by law. Electronically signed by: Albert Eubanks M.D. 10/09/2022 6:02 PM
--- NOTE | 2022-10-09 18:05 | CT Scan Report ---
HEAD CT NONCONTRAST CT DOSE: HISTORY: Altered mental status. TECHNIQUE: Multiaxial CT images of the head were performed without the use of intravenous contrast. A utomated exposure control was utilized for this study. A dose lowering technique was utilized adheri ng to the principles of ALARA. Comparison: Head CT 10/02/2021. Findings: The paranasal sinuses and mastoid air cells are clear. The calvarium and skull base are int act. The ventricles and sulci are within normal limits. There is no mass, hematoma, midline shift, or acute infarct. Impression: No acute intracranial abnormality. ACT 112: Negative or not required by law. Electronically signed by: Albert Eubanks M.D. 10/09/2022 6:04 PM
--- NOTE | 2022-10-09 20:22 | History & Physical Report ---
Date of Service October 09, 2022 Assessment & Plan (1) SBO (small bowel obstruction): Plan: Noted on CT. Patient denies abdominal pain, nausea, bloating or distention. Her abdomen is soft, NT/ND with normoactive bowel sounds. She reports no flatus lately but she did have a BM prior to arrival. CT findings are not new, do seem progressive. Per family, they do not wish to have aggressive workup or treatment of said issue. -Admit to medical -Keep NPO for now -Monitor for nausea, distention - NGT if this develops -Zofran PRN -Gentle IVF - LR at 80mL/hr x 2L -Tylenol as needed for pain -GI and General Surgery consulted in ER - appreciate input (2) Small bowel mass: Plan: As above. Family does not wish to have aggressive management or workup at this time (3) GI bleed: Plan: Bloody BMs noted by the [facility]. No witnessed bleeding here currently. Patient with history of esophagitis which could be source of bleeding. Small bowel with possible mass is other possible source. -Monitor for bloody BMs -Protonix 40mg IV BID -Monitor CBC -Maintain adequate peripheral access (4) Elevated INR: Plan: Patient with chronically elevated INR for which she follows with Hematology/Oncology. She has received FFP transfusions in the past. Report of bloody bowel movements. INR=3.4 currently. Not on anticoagulation. -Administer Vitamin K 5mg po now -Patient consented for FFP transfusion if needed - will transfuse if she has witnessed bleeding or if procedure is planned -Repeat INR in AM (5) Intellectual disability: Plan: Noted. Frequent orientation a (6) CKD (chronic kidney disease), stage III: Plan: Patient presents with elevated Cr from baseline. Presently 1.45, last was 0.96 on 09/02/22. She appear dry on physical exam -LR at 80mL/hr x 2 liters -Repeat chemistry in AM -Avoid nephrotoxic agents -Renal dosing where needed History of Present Illness Chief Complaint: reported GIB Primary Care Provider: MICHELL Rendon Megbkenid Méndez is a 62yo female with history of CAD, CKD, Anemia, HTN and developmental delay presenting from [facility] with report of GI bleed. Patient is a poor historian. History obtained largely through discussion with ER staff and chart review. Patient reports no abdominal pain, distention or bloating. No nausea or vomiting. She reports having a bowel movement prior to arrival but is uncertain if there was blood in the stool. She has no complaints at this time. She reports that she has not been passing flatus lately. Patient with known anemia and abnormal coagulation profile. She follows with Hematology/Oncology for this. Anemia thought to be secondary to anemia of chronic disease in chronic renal failure. She has been treated with Procrit in the past. Last PT=20.3 and INR=1.9 on 09/01/22. She has been transfused with FFP in the past prior to procedures. Patient has had several months of abdominal pain. She has been seen by GI in the past with report of coffee ground emesis. She had an EGD performed on 08/19/22 which revealed mildly severe reflux esophagitis with no bleeding. Small hiatal hernia and duodenal deformity. A CT scan was recommended for additional workup of the noted duodenal deformity. She had the CT performed on 09/01/22 which revealed evidence of a proximal SBO with a markedly dilated duodenum. Of note, similar findings seen on CT imaging from June 2021. She was evaluated by GI at that time and recommended Vascular Surgery evaluation for possible SMA syndrome. She did not undergo this evaluation. Patient presents today with report of bloody stool. CT findings as below. Dr. Ball had lengthy discussion with patient's sister, Lana Sanchez who is a physician. Please see his documentation for details of that conversation. In brief, family does not want aggressive workup or treatment for possible mass/stricture noted on imaging. Allergies Allergy/AdvReac Type Severity Reaction Status Date / Time No Known Allergies Allergy NONE Verified 10/09/22 17:35 Home Medications Medication Instructions Recorded Confirmed Type acetaminophen 325 mg tablet 650 mg PO Q6 PRN PAIN--LEFT HIP 12/24/21 10/09/22 History (Tylenol) atorvastatin 40 mg tablet 40 mg PO QAM 12/24/21 10/09/22 History calcium carbonate 200 mg calcium 500 mg PO QAM 12/24/21 10/09/22 History (500 mg) chewable tablet (Calcium Antacid) carvedilol 6.25 mg tablet 6.25 mg PO BID 12/24/21 10/09/22 History cholecalciferol (vitamin D3) 125 62.5 mcg PO QAM 12/24/21 10/09/22 History mcg (5,000 unit) tablet (Vitamin D3) food supplemt, lactose-reduced 1 ea PO TID PRN IF EAT 25% OR LESS 12/24/21 10/09/22 History (Ensure oral liquid) OF EACH MEAL furosemide 20 mg tablet 20 mg PO QAM 12/24/21 10/09/22 History loperamide 2 mg capsule 2 mg PO QID PRN Diarrhea 12/24/21 10/09/22 History ondansetron HCl 4 mg tablet 4 mg PO Q6 PRN Nausea 12/24/21 10/09/22 History oxybutynin chloride 5 mg tablet 5 mg PO TID 12/24/21 10/09/22 History bupropion HCl 300 mg 24 hr tablet, 300 mg PO QAM 06/04/22 10/09/22 History extended release cyanocobalamin (vitamin B-12) 1,000 mcg PO QAM 07/31/22 10/09/22 History 1,000 mcg tablet (Vitamin B-12) pantoprazole 40 mg tablet,delayed 40 mg PO BID 07/31/22 10/09/22 History release sucralfate 100 mg/mL oral 10 ml PO ACHS #400 mL 07/31/22 10/09/22 Rx suspension (Carafate) B-complex with vitamin C 1 tab PO QAM 10/09/22 10/09/22 History diclofenac sodium 1 % topical gel 2 g EXT TID 10/09/22 10/09/22 History (Voltaren Arthritis Pain) mirtazapine 30 mg tablet 30 mg PO HS 10/09/22 10/09/22 History Past Med/Surg History Medical History 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 per [facility] oncology records CAD (coronary artery disease) NSTEMI s/p MARYBETH to LAD 10/2008 Chronic RCA occlusion with adequate collaterals Chronic anemia R/t chronic renal disease per [facility] oncology records, stable CKD (chronic kidney disease), stage III Coffee ground emesis x 1 coffee ground and 1 dark brown emesis- week of 07/21/22 Hypertension Ischemic cardiomyopathy Compensated, functional class 2 per 04/2022 [facility] cardiology visit Lives in senior facility Resident of [facility] also has impaired short term memory; sister Laverne has POA Surgical History History of cardiac cath 2009 > stent 2018 > known proximal RCA occlusion with left to right collaterals, medical management recommended No significant past surgical history Family History Other Medical history non-contributory Social History Smoking Status: Never smoker Hx Alcohol Use: No Hx Substance Use: No Preferred Language: Indonesian Communication Ability: Effective Communication Ability Comment: mental disability Compensator Worker Required: No Beliefs That Will Affect Care: None marital status: Current Living Situation: Personal Care Facility Current Living Situation Comment: [facility] Feels Safe at Home: Yes Assistive Devices: Walker Review of Systems Review of Systems: All systems reviewed & are unremarkable except as noted in HPI & below Physical Exam 2 Physical Exam: General: patient resting comfortably, NAD, non-toxic in appearance, oriented to self and location Skin: warm, dry, intact, no rashes or lesions HEENT: NC/AT, PERRL, EOMI, anicteric sclera, conjunctiva without injection, external ear normal to inspection and nontender, nares patent, slightly dry mucus membranes, dentition intact, no oropharyngeal lesions, neck supple, trachea midline, no LAD, no thyromegaly, no JVD Heart: +S1/S2, regular, no m/r/g Lungs: equal air entry bilaterally, no rales/rhonchi/wheezes Abd: +BS normoactive, soft, NT/ND, no masses/organomegaly/ascites, no nausea Ext: warm, 2+ pulses in UE/LE bilaterally, no clubbing/cyanosis or edema Neuro: nonfocal, patient AA&O to self and location, speech intact, no facial droop, moving all extremities on command with equal strength 5/5 Results & Data Results & Data Vital Signs (Past 12 Hours) Vital Signs Temp Pulse Pulse Resp BP BP Pulse Ox 10/09/22 18:52 73 10/09/22 18:04 76 18 146/60 H 100 10/09/22 15:50 78 19 142/61 H 100 10/09/22 15:49 76 19 100 10/09/22 14:36 83 10/09/22 14:37 36.7 C 86 12 114/81 98 O2 Del Method 10/09/22 18:52 10/09/22 18:04 Room Air 10/09/22 15:50 Room Air 10/09/22 15:49 Room Air 10/09/22 14:36 10/09/22 14:37 Room Air Laboratory Results Laboratory Results WBC 10.81 K/ul (4.8-10.8) H 10/09/22 14:01 RBC 3.46 M/uL (4.20-5.40) L 10/09/22 14:01 Hgb 9.7 g/dl (12.0-16.0) L 10/09/22 14:01 Hct 29.8 % (37.0-47.0) L 10/09/22 14:01 MCV 86.1 fL (80.0-100.0) 10/09/22 14:01 MCH 28.0 pg (25.0-34.0) 10/09/22 14:01 MCHC 32.6 g/dL (32.0-36.0) 10/09/22 14:01 RDW Std Deviation 51.9 fL (36.4-46.3) H 10/09/22 14:01 RDW Coeff of Bob 16.4 % (11.5-14.5) H 10/09/22 14:01 Plt Count 368 K/uL (130-400) 10/09/22 14:01 MPV 9.5 fL (9.4-12.4) 10/09/22 14:01 Immature Gran % (Auto) 0.4 % 10/09/22 14:01 Neut % (Auto) 73.4 % 10/09/22 14:01 Lymph % (Auto) 18.5 % 10/09/22 14:01 Kingfisher % (Auto) 6.9 % 10/09/22 14:01 Eos % (Auto) 0.6 % 10/09/22 14:01 Baso % (Auto) 0.2 % 10/09/22 14:01 Neut # (Auto) 7.93 K/uL (1.40-6.50) H 10/09/22 14:01 Lymph # (Auto) 2.00 K/uL (1.2-3.4) 10/09/22 14:01 Kingfisher # (Auto) 0.75 K/uL (0.11-0.59) H 10/09/22 14:01 Eos # (Auto) 0.07 K/uL (0-0.50) 10/09/22 14:01 Baso # (Auto) 0.02 K/uL (0-0.2) 10/09/22 14:01 Immature Gran # (Auto) 0.04 K/uL (0.01-0.20) 10/09/22 14:01 PT 34.1 Seconds (9.0-12.0) H 10/09/22 14:01 INR 3.4 (0.9-1.1) H 10/09/22 14:01 APTT 45.0 Seconds (21.0-31.0) H* 10/09/22 14:01 PTT Ratio 1.6 10/09/22 14:01 Sodium 140 mmol/L (136-145) 10/09/22 14:01 Potassium 3.3 mmol/L (3.5-5.1) L 10/09/22 14:01 Chloride 109 mmol/L (98-107) H 10/09/22 14:01 Carbon Dioxide 23 mmol/L (21-32) 10/09/22 14:01 Anion Gap 8 (3-11) 10/09/22 14:01 BUN 18 mg/dl (6-23) 10/09/22 14:01 Creatinine 1.45 mg/dl (0.6-1.2) H 10/09/22 14:01 Est Cr Clr Drug Dosing 33.0 ml/min 10/09/22 14:01 Est GFR ( Amer) 44.3 ml/min 10/09/22 14:01 Est GFR (Non-Af Amer) 38.2 ml/min 10/09/22 14:01 BUN/Creatinine Ratio 12.4 (10-20) 10/09/22 14:01 Glucose 114 mg/dl (70-99(Fasting)) H 10/09/22 14:01 Calcium 8.4 mg/dl (8.6-10.3) L 10/09/22 14:01 Total Bilirubin 0.3 mg/dl (0.2-1.0) 10/09/22 14:01 Direct Bilirubin 0.1 mg/dl (0-0.2) 10/09/22 14:01 AST 22 U/L (13-39) 10/09/22 14:01 ALT 20 U/L (7-52) 10/09/22 14:01 Alkaline Phosphatase 126 U/L (34-104) H 10/09/22 14:01 Total Protein 5.8 gm/dl (6.0-8.3) L 10/09/22 14:01 Albumin 3.3 gm/dl (3.4-5.0) L 10/09/22 14:01 Lipase 33 U/L (11-82) 10/09/22 14:01 Blood Type B Positive 10/09/22 15:30 Antibody Screen NEGATIVE 10/09/22 15:30 Impressions Abdomen/Pelvis CT 10/09/22 17:[address] WITH IV CONTRAST CT DOSE: 1174.16 mGy.cm HISTORY: Generalized abdominal pain. GI bleed. Elevated INR. TECHNIQUE: Multiaxial CT images of the abdomen and pelvis were performed following the use of intravenous contrast. A dose lowering technique was utilized adhering to the principles of ALARA. COMPARISON STUDY: None. FINDINGS: Trace right pleural effusion. Mild dependent changes seen at the lung bases. No pneumoperitoneum. No pneumatosis. Advanced degenerative changes within the bilateral hips. No suspicious lytic or blastic osseous lesions. Trace pericardial effusion is noted. Severe coronary artery calcifications are present. The esophagus is mildly distended and partially fluid-filled. There is mild thickening of the distal esophagus. The stomach is decompressed. However, there are severe dilatation of the duodenum which is completely fluid-filled. This measures up to 7.9 cm in diameter. This is slightly progressed. Focal transition point within the proximal jejunum just beyond the ligament of Treitz best seen on image 139. There is focal thickening of the small bowel at this level. Therefore, this is concerning for an underlying small bowel mass. A focal stricture or adhesion could also have a similar appearance. The remaining loops of large and small bowel are fluid-filled but are normal and caliber. This could be due to the proximal small bowel obstruction or an underlying gastroenteritis. Mild circumferential thickening of the rectum with mild mucosal hyperenhancement. This may represent a nonspecific proctitis contrast seen within the bladder. The uterus and bilateral adnexa are unremarkable. No significant pelvic free fluid. Mild perirectal fat stranding is noted. The liver, spleen, adrenal glands, and pancreas are unremarkable. Contrast within the gallbladder suggesting vicarious excretion. No gallbladder wall thickening. The main portal vein is patent. Calcified plaque within the normal caliber abdominal aorta. No retroperitoneal or pelvic lymphadenopathy. There is contrast within the urinary system/bladder. This is likely due to a prior CT examination. No bladder wall thickening. Mild right-sided hydronephrosis, unchanged. This extends to the level of mid right ureter is likely due to compression from the distended duodenum. Multiple left peripelvic renal cysts are again noted. A 9 mm calcified disc protrusion at L2-L3 again noted resulting in moderate to severe central canal narrowing. This is similar to the prior study. IMPRESSION: 1. Interval progression of the high-grade proximal small bowel obstruction at the level the proximal jejunum where there is focal thickening of the jejunum resulting in severe distention of the duodenum. This is concerning for a small bowel mass at this location. A stricture or adhesion could also have a similar appearance. 2. Mild right hydronephrosis, unchanged. This is likely due to compression of the mid right ureter from the severely distended duodenum. 3. Mild rectal wall thickening with adjacent fat stranding. This is consistent with a nonspecific proctitis. 4. The remaining loops of large and small bowel are fluid-filled and normal in caliber. This could be due to the proximal small bowel obstruction or a superimposed gastroenteritis. ACT 112: Negative or not required by law. Electronically signed by: Albert Eubanks M.D. 10/09/2022 6:[address] 10/09/22 17:[address] DOSE: HISTORY: Altered mental status. TECHNIQUE: Multiaxial CT images of the head were performed without the use of intravenous contrast. Automated exposure control was utilized for this study. A dose lowering technique was utilized adhering to the principles of ALARA. Comparison: Head CT 10/02/2021. Findings: The paranasal sinuses and mastoid air cells are clear. The calvarium and skull base are intact. The ventricles and sulci are within normal limits. There is no mass, hematoma, midline shift, or acute infarct. Impression: No acute intracranial abnormality. ACT 112: Negative or not required by law. Electronically signed by: Albert Eubanks M.D. 10/09/2022 6:04 PM Code Status & VTE Plan VTE Prophylaxis Plan VTE Prophylaxis will be ordered: Yes PG Care Time/CCT Total # of Minutes Spent Total Time Spent with Patient: Total time spent is greater than 50% in coordination of care (as documented) at patient's floor/unit and/or counseling patient: Coding Level of Care Code 41955 INT INP/OBS CARE 3/75MIN Diagnoses SBO (small bowel obstruction) K56.609 Small bowel mass K63.89 GI bleed K92.2 Elevated INR R79.1 Intellectual disability F79 CKD (chronic kidney disease), stage III N18.30
[2022-10-10] MEDS ORDERED: ACETAMINOPHEN 325 MG TAB PO PRN (00:53)
[2022-10-10] MEDS ORDERED: LACTATED RINGER'S 1,000 ML IV SCH (00:53)
[2022-10-10] MEDS ORDERED: PHYTONADIONE 5 MG TAB PO STA (00:53)
[2022-10-10] MEDS ORDERED: POTASSIUM CHLORIDE CRTAB 20 MEQ TABCR PO STA (00:53)
[2022-10-10] MEDS: SODIUM CHLORIDE 0.9% 500 ML IV SCH (00:55)
[2022-10-10] MEDS: PANTOprazole 40 MG in SYRINGE 0 ML IV SCH ×3 (01:25→20:08)
[2022-10-10] MEDS: SUCRALFATE 1 GM/10 ML UDC PO SCH ×2 (01:26→08:29)
[2022-10-10] MEDS: DICLOFENAC SOD 1% GEL 100 GM TUBE EXT SCH ×4 (01:26→17:58)
[2022-10-10] MEDS: oxyBUTYnin chloride 5 MG TAB PO SCH ×4 (01:27→20:08)
[2022-10-10] MEDS: carvediloL 6.25 MG TAB PO SCH ×2 (01:27→08:36)
[2022-10-10] MEDS: MIRTAZAPINE TAB 15 MG TAB PO SCH ×2 (01:27→20:09)
[2022-10-10] MEDS: ONDANSETRON INJ 2 MG/ML 2 ML VIAL IV SCH ×4 (02:16→20:08)
[2022-10-10] MEDS: MAGNESIUM SULFATE / D5W 1 GM/100 ML BAG IV SCH ×3 (06:32→10:32)
[2022-10-10 07:04] LABS: Hematocrit (blood only) 24.7 % (37.0-47.0); Hemoglobin 8.1 g/dl (12.0-16.0); Mean Corpuscular Hemoglobin 27.9 pg (25.0-34.0); Mean Corpuscular Hgb Conc 32.8 g/dL (32.0-36.0); Mean Corpuscular Volume 85.2 fL (80.0-100.0); Mean Platelet Volume 9.5 fL (9.4-12.4); Platelet Count 286 K/uL (130-400); RDW Coefficient of Variation 16.4 % (11.5-14.5); RDW Standard Deviation 51.3 fL (36.4-46.3); White Blood Count 7.12 K/ul (4.8-10.8)
[2022-10-10 07:24] LABS: BUN Creatinine Ratio 11.9 (10-20); Calcium 7.5 mg/dl (8.6-10.3); Creatinine Clr Calc Pharmacy 40.5 ml/min; Est GFR (African American) 56.8 ml/min; Potassium 2.9 mmol/L (3.5-5.1)
[2022-10-10 07:36] LABS: INR 4.1 (0.9-1.1); Prothrombin Time 41.3 Seconds (9.0-12.0)
--- NOTE | 2022-10-10 08:09 | Hospitalist Progress Note ---
Date of Service October 10, 2022 Assessment & Plan (1) SBO (small bowel obstruction): Plan: -Presented for bloody BMs, with evidence on CTAP of interval progression of high-grade SBO at proximal jejunum, with possibility of small bowel mass noted -Per family, they do not wish to have aggressive workup or treatment of said issue, after discussion with family and Palliative Care consult, patient was made comfort care, case discussed with Lilibeth Schmidt -PRN medications for pain, anxiety, agitation have been added -Plan for discharge to the [facility] with hospice when able (2) Small bowel mass: Plan: -As above. Family does not wish to have aggressive management or workup at this time (3) GI bleed: Plan: -Bloody BMs noted by the [facility]. Patient with history of esophagitis which could be source of bleeding. Small bowel with possible mass is other possible source. -Protonix 40mg IV BID (4) Elevated INR: Plan: -Patient with chronically elevated INR for which she follows with Hematology/Oncology. She has received FFP transfusions in the past. Report of bloody bowel movements by the [facility] -INR 3.4 on admission, today 4.1, unknown etiology, no further lab draws for comfort -Daily INR (5) Intellectual disability: Plan: Noted. Frequent orientation (6) CKD (chronic kidney disease), stage III: Plan: -URBAN on CKD III, Cr was 1.45 on admission now 1.18 with gentle IVF, resolved -Avoid nephrotoxic agents (7) Hypokalemia: Plan: K 2.9, received KCl 40meq PO, patient received partial infusion of K Riders but was made comfort care, no further lab draws Mg repletion as below (8) Hypomagnesemia: Plan: Mg 1.0, receiving Mg Sulfate 3g IV, now comfort care Admission and Anticipated Discharge Date Admission Date: October 09, 2022 Subjective No acute events overnight, no further bloody BMs. Elizabeth denies pain anywhere including her abdomen. Review of Systems Review of Systems: All systems reviewed & are unremarkable except as noted in Subjective Physical Exam Constitutional: WD/WN, vitals as above Respiratory: normal respiratory effort, lungs clear to auscultation Cardiovascular: RRR, no murmur, no edema Gastrointestinal (Abdomen): normal bowel sounds, soft, nontender, no hepatosplenomegaly Skin: no rashes, warm and dry Psychiatric: A+Ox3, euthymic affect Results & Data Results & Data Vital Signs (Past 12 Hours) Vital Signs Temp Pulse Pulse Pulse Resp BP BP 10/10/22 07:43 36.7 C 80 18 146/65 H 10/10/22 03:06 36.7 C 79 18 153/57 H 10/10/22 01:25 77 10/10/22 00:57 10/10/22 00:57 36.4 C L 88 18 158/60 H 10/10/22 00:53 36.4 C L 88 18 158/60 H 10/09/22 23:30 82 17 129/58 L 10/09/22 23:47 10/09/22 23:00 79 13 145/65 H 10/09/22 22:34 77 10/09/22 20:44 73 18 130/63 Pulse Ox O2 Del Method 10/10/22 07:43 99 Room Air 10/10/22 03:06 99 Room Air 10/10/22 01:25 10/10/22 00:57 Room Air 10/10/22 00:57 99 Room Air 10/10/22 00:53 99 Room Air 10/09/22 23:30 100 Room Air 10/09/22 23:47 Room Air 10/09/22 23:00 99 Room Air 10/09/22 22:34 10/09/22 20:44 95 Room Air PG Care Time/CCT Total # of Minutes Spent Total Time Spent with Patient: Total time spent is greater than 50% in coordination of care (as documented) at patient's floor/unit and/or counseling patient: Coding Level of Care Code 37760 SUB INP/OBS CARE 3/50MIN Diagnoses SBO (small bowel obstruction) K56.609 Small bowel mass K63.89 GI bleed K92.2 Elevated INR R79.1 Intellectual disability F79 CKD (chronic kidney disease), stage III N18.30 Hypokalemia E87.6 Hypomagnesemia E83.42
[2022-10-10] MEDS ORDERED: POTASSIUM CHLORIDE / WTR 10 MEQ/100 ML PLCT IV SCH (08:15)
[2022-10-10] MEDS ORDERED: PHYTONADIONE 5 MG in DEXTROSE 5% 50 ML IV ONE (08:30)
[2022-10-10] MEDS: buPROPion XL 300 MG TABCR PO SCH (08:36)
[2022-10-10] MEDS ORDERED: ATORVASTATIN 40 MG TAB PO SCH (09:00)
--- NOTE | 2022-10-10 09:54 | Surgery Consultation ---
Date of Consultation October 10, 2022 Assessment & Plan (1) SBO (small bowel obstruction): (2) GI bleed: (3) Small bowel mass: (4) Intellectual disability: Plan 62 year-old female with intellectual disability who presented to ER from [place] due to rectal bleeding. She has history of GI bleed and work-up in July with endoscopy and CT scan showing SBO and distended duodenum however this was seen on prior CT scan in june of 2021 in which she was referred to vascular surgery at [facility] for possible SMA syndrome and she did not undergo further work-up or evaluation at that time. Her abdomen is soft, nondistended, nontender. Family wishes to not pursue aggressive treatment or diagnostic testing for the CT scan findings. Plan: No acute surgical intervention required would continue medical management GI consulted, await recommendations, consider push enteroscopy? however family may not want to proceed with additional testing Dr. Enriquez has seen and examined patient, agrees with above. Supervising Physician Co-Signing Physician Notes I have seen and examined the patient personally and agree with the above assessment and plan. She has a chronic partial obstruction at the level of the proximal jejunum distal duodenum. She has been referred to [place] for vascular and foregut surgery in the past. Her family does not wish to pursue any aggressive treatment for this finding. She is not nauseated, and her abdomen is soft and nontender. Will not plan for any acute surgical intervention. She will need further evaluation workup with medicine and GI. We will continue to follow. History of Present Illness Attending Physician: Kelley Garrett DO History of Present Illness Elizabeth Méndez is a 62yo female with history of CAD, CKD, Anemia, HTN and developmental delay presenting from [facility] with report of GI bleed. Patient is a poor historian.History obtained from chart review. She has been seen by GI in the past with report of coffee ground emesis. She had an EGD performed on 08/19/22 which revealed mildly severe reflux esophagitis with no bleeding. Small hiatal hernia and duodenal deformity. A CT scan was recommended for additional workup of the noted duodenal deformity. She had the CT performed on 09/01/22 which revealed evidence of a proximal SBO with a markedly dilated duodenum. Of note, similar findings seen on CT imaging from June 2021. She was evaluated by GI at that time and recommended Vascular Surgery evaluation for possible SMA syndrome. She did not undergo this evaluation. Findings on CT scan are not acute or new but is progressing. Patient denies of any abdominal pain , nausea, bloating. Sister is POA and family does not want aggressive treatment or diagnostic testing of small bowel mass/SBO. Allergies Allergy/AdvReac Type Severity Reaction Status Date / Time No Known Allergies Allergy NONE Verified 10/09/22 17:35 Home Medications Medication Instructions Recorded Confirmed Type acetaminophen 325 mg tablet 650 mg PO Q6 PRN PAIN--LEFT HIP 12/24/21 10/09/22 History (Tylenol) atorvastatin 40 mg tablet 40 mg PO QAM 12/24/21 10/09/22 History calcium carbonate 200 mg calcium 500 mg PO QAM 12/24/21 10/09/22 History (500 mg) chewable tablet (Calcium Antacid) carvedilol 6.25 mg tablet 6.25 mg PO BID 12/24/21 10/09/22 History cholecalciferol (vitamin D3) 125 62.5 mcg PO QAM 12/24/21 10/09/22 History mcg (5,000 unit) tablet (Vitamin D3) food supplemt, lactose-reduced 1 ea PO TID PRN IF EAT 25% OR LESS 12/24/21 10/09/22 History (Ensure oral liquid) OF EACH MEAL furosemide 20 mg tablet 20 mg PO QAM 12/24/21 10/09/22 History loperamide 2 mg capsule 2 mg PO QID PRN Diarrhea 12/24/21 10/09/22 History ondansetron HCl 4 mg tablet 4 mg PO Q6 PRN Nausea 12/24/21 10/09/22 History oxybutynin chloride 5 mg tablet 5 mg PO TID 12/24/21 10/09/22 History bupropion HCl 300 mg 24 hr tablet, 300 mg PO QAM 06/04/22 10/09/22 History extended release cyanocobalamin (vitamin B-12) 1,000 mcg PO QAM 07/31/22 10/09/22 History 1,000 mcg tablet (Vitamin B-12) pantoprazole 40 mg tablet,delayed 40 mg PO BID 07/31/22 10/09/22 History release sucralfate 100 mg/mL oral 10 ml PO ACHS #400 mL 07/31/22 10/09/22 Rx suspension (Carafate) B-complex with vitamin C 1 tab PO QAM 10/09/22 10/09/22 History diclofenac sodium 1 % topical gel 2 g EXT TID 10/09/22 10/09/22 History (Voltaren Arthritis Pain) mirtazapine 30 mg tablet 30 mg PO HS 10/09/22 10/09/22 History Patient History Medical History 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 Beliefs That Will Affect Care: None marital status: Current Living Situation: Personal Care Facility Current Living Situation Comment: resident at [facility] Feels Safe at Home: Yes Safety Concerns: Feels Safe At This Time Assistive Devices: Glasses Review of Systems Review of Systems: Limited , patient provides limited history Physical Exam Constitutional: cooperative and comfortable; no acute distress and not ill appearing Respiratory: normal respiratory effort; no respiratory distress Gastrointestinal (Abdomen): Inspection/Auscultation: abdomen normal to insp ection; abdomen not distended Percussion/Palpation: abdomen soft; abdomen nontender, no guarding, abdomen not rigid and abdomen not firm Skin: no rashes, warm and dry Psychiatric: Orientation: alert Results & Data Vital Signs (Past 12 Hours) Vital Signs Temp Pulse Pulse Pulse Resp BP BP 10/10/22 07:43 36.7 C 80 18 146/65 H 10/10/22 03:06 36.7 C 79 18 153/57 H 10/10/22 01:25 77 10/10/22 00:57 10/10/22 00:57 36.4 C L 88 18 158/60 H 10/10/22 00:53 36.4 C L 88 18 158/60 H 10/09/22 23:30 82 17 129/58 L 10/09/22 23:47 10/09/22 23:00 79 13 145/65 H 10/09/22 22:34 77 Pulse Ox O2 Del Method 10/10/22 07:43 99 Room Air 10/10/22 03:06 99 Room Air 10/10/22 01:25 10/10/22 00:57 Room Air 10/10/22 00:57 99 Room Air 10/10/22 00:53 99 Room Air 10/09/22 23:30 100 Room Air 10/09/22 23:47 Room Air 10/09/22 23:00 99 Room Air 10/09/22 22:34 Laboratory Results 10/10/22 10/10/22 10/10/22 Range/Units 06:24 06:24 06:24 WBC 7.12 (4.8-10.8) K/ul RBC 2.90 L (4.20-5.40) M/uL Hgb 8.1 L (12.0-16.0) g/dl Hct 24.7 L (37.0-47.0) % MCV 85.2 (80.0-100.0) fL MCH 27.9 (25.0-34.0) pg MCHC 32.8 (32.0-36.0) g/dL RDW Std Deviation 51.3 H (36.4-46.3) fL RDW Coeff of Bob 16.4 H (11.5-14.5) % Plt Count 286 (130-400) K/uL MPV 9.5 (9.4-12.4) fL Immature Gran % (Auto) % Neut % (Auto) % Lymph % (Auto) % [place] % (Auto) % Eos % (Auto) % Baso % (Auto) % Neut # (Auto) (1.40-6.50) K/uL Lymph # (Auto) (1.2-3.4) K/uL [place] # (Auto) (0.11-0.59) K/uL Eos # (Auto) (0-0.50) K/uL Baso # (Auto) (0-0.2) K/uL Immature Gran # (Auto) (0.01-0.20) K/uL PT 41.3 H (9.0-12.0) Seconds INR 4.1 H (0.9-1.1) APTT (21.0-31.0) Seconds PTT Ratio Sodium 140 (136-145) mmol/L Potassium 2.9 L (3.5-5.1) mmol/L Chloride 113 H (98-107) mmol/L Carbon Dioxide 21 (21-32) mmol/L Anion Gap 6 (3-11) BUN 14 (6-23) mg/dl Creatinine 1.18 (0.6-1.2) mg/dl Est Cr Clr Drug Dosing 40.5 ml/min Est GFR ( Amer) 56.8 ml/min Est GFR (Non-Af Amer) 49.0 ml/min BUN/Creatinine Ratio 11.9 (10-20) Glucose 108 H (70-99(Fasting)) mg/dl Calcium 7.5 L (8.6-10.3) mg/dl Magnesium (1.7-2.4) mg/dl Total Bilirubin (0.2-1.0) mg/dl Direct Bilirubin (0-0.2) mg/dl AST (13-39) U/L ALT (7-52) U/L Alkaline Phosphatase (34-104) U/L Total Protein (6.0-8.3) gm/dl Albumin (3.4-5.0) gm/dl Lipase (11-82) U/L Blood Type Antibody Screen 10/09/22 10/09/22 10/09/22 Range/Units 15:30 14:01 14:01 WBC (4.8-10.8) K/ul RBC (4.20-5.40) M/uL Hgb (12.0-16.0) g/dl Hct (37.0-47.0) % MCV (80.0-100.0) fL MCH (25.0-34.0) pg MCHC (32.0-36.0) g/dL RDW Std Deviation (36.4-46.3) fL RDW Coeff of Bob (11.5-14.5) % Plt Count (130-400) K/uL MPV (9.4-12.4) fL Immature Gran % (Auto) % Neut % (Auto) % Lymph % (Auto) % [place] % (Auto) % Eos % (Auto) % Baso % (Auto) % Neut # (Auto) (1.40-6.50) K/uL Lymph # (Auto) (1.2-3.4) K/uL [place] # (Auto) (0.11-0.59) K/uL Eos # (Auto) (0-0.50) K/uL Baso # (Auto) (0-0.2) K/uL Immature Gran # (Auto) (0.01-0.20) K/uL PT 34.1 H (9.0-12.0) Seconds INR 3.4 H (0.9-1.1) APTT 45.0 H* (21.0-31.0) Seconds PTT Ratio 1.6 Sodium 140 (136-145) mmol/L Potassium 3.3 L (3.5-5.1) mmol/L Chloride 109 H (98-107) mmol/L Carbon Dioxide 23 (21-32) mmol/L Anion Gap 8 (3-11) BUN 18 (6-23) mg/dl Creatinine 1.45 H (0.6-1.2) mg/dl Est Cr Clr Drug Dosing 33.0 ml/min Est GFR ( Amer) 44.3 ml/min Est GFR (Non-Af Amer) 38.2 ml/min BUN/Creatinine Ratio 12.4 (10-20) Glucose 114 H (70-99(Fasting)) mg/dl Calcium 8.4 L (8.6-10.3) mg/dl Magnesium 1.0 L (1.7-2.4) mg/dl Total Bilirubin 0.3 (0.2-1.0) mg/dl Direct Bilirubin 0.1 (0-0.2) mg/dl AST 22 (13-39) U/L ALT 20 (7-52) U/L Alkaline Phosphatase 126 H (34-104) U/L Total Protein 5.8 L (6.0-8.3) gm/dl Albumin 3.3 L (3.4-5.0) gm/dl Lipase 33 (11-82) U/L Blood Type B Positive Antibody Screen NEGATIVE 10/09/22 Range/Units 14:01 WBC 10.81 H (4.8-10.8) K/ul RBC 3.46 L (4.20-5.40) M/uL Hgb 9.7 L (12.0-16.0) g/dl Hct 29.8 L (37.0-47.0) % MCV 86.1 (80.0-100.0) fL MCH 28.0 (25.0-34.0) pg MCHC 32.6 (32.0-36.0) g/dL RDW Std Deviation 51.9 H (36.4-46.3) fL RDW Coeff of Bob 16.4 H (11.5-14.5) % Plt Count 368 (130-400) K/uL MPV 9.5 (9.4-12.4) fL Immature Gran % (Auto) 0.4 % Neut % (Auto) 73.4 % Lymph % (Auto) 18.5 % [place] % (Auto) 6.9 % Eos % (Auto) 0.6 % Baso % (Auto) 0.2 % Neut # (Auto) 7.93 H (1.40-6.50) K/uL Lymph # (Auto) 2.00 (1.2-3.4) K/uL [place] # (Auto) 0.75 H (0.11-0.59) K/uL Eos # (Auto) 0.07 (0-0.50) K/uL Baso # (Auto) 0.02 (0-0.2) K/uL Immature Gran # (Auto) 0.04 (0.01-0.20) K/uL PT (9.0-12.0) Seconds INR (0.9-1.1) APTT (21.0-31.0) Seconds PTT Ratio Sodium (136-145) mmol/L Potassium (3.5-5.1) mmol/L Chloride (98-107) mmol/L Carbon Dioxide (21-32) mmol/L Anion Gap (3-11) BUN (6-23) mg/dl Creatinine (0.6-1.2) mg/dl Est Cr Clr Drug Dosing ml/min Est GFR ( Amer) ml/min Est GFR (Non-Af Amer) ml/min BUN/Creatinine Ratio (10-20) Glucose (70-99(Fasting)) mg/dl Calcium (8.6-10.3) mg/dl Magnesium (1.7-2.4) mg/dl Total Bilirubin (0.2-1.0) mg/dl Direct Bilirubin (0-0.2) mg/dl AST (13-39) U/L ALT (7-52) U/L Alkaline Phosphatase (34-104) U/L Total Protein (6.0-8.3) gm/dl Albumin (3.4-5.0) gm/dl Lipase (11-82) U/L Blood Type Antibody Screen Diagnostic Findings ABDOMEN AND PELVIS CT WITH IV CONTRAST CT DOSE: 1174.16 mGy.cm HISTORY: Generalized abdominal pain. GI bleed. Elevated INR. TECHNIQUE: Multiaxial CT images of the abdomen and pelvis were performed following the use of intravenous contrast. A dose lowering technique was utilized adhering to the principles of ALARA. COMPARISON STUDY: None. FINDINGS: Trace right pleural effusion. Mild dependent changes seen at the lung bases. No pneumoperitoneum. No pneumatosis. Advanced degenerative changes within the bilateral hips. No suspicious lytic or blastic osseous lesions. Trace pericardial effusion is noted. Severe coronary artery calcifications are present. The esophagus is mildly distended and partially fluid-filled. There is mild thickening of the distal esophagus. The stomach is decompressed. However, there are severe dilatation of the duodenum which is completely fluid-filled. This measures up to 7.9 cm in diameter. This is slightly progressed. Focal transition point within the proximal jejunum just beyond the ligament of Treitz best seen on image 139. There is focal thickening of the small bowel at this l evel. Therefore, this is concerning for an underlying small bowel mass. A focal stricture or adhesion could also have a similar appearance. The remaining loops of large and small bowel are fluid-filled but are normal and caliber. This could be due to the proximal small bowel obstruction or an underlying gastroenteritis. Mild circumferential thickening of the rectum with mild mucosal hyperenhanceme nt. This may represent a nonspecific proctitis contrast seen within the bladder. The uterus and bilateral adnexa are unremarkable. No significant pelvic free fluid. Mild perirectal fat stranding is noted. The liver, spleen, adrenal glands, and pancreas are unremarkable. Contrast within the gallbladder suggesting vicarious excretion. No gallbladder wall thickening. The main portal vein is patent. Calcified plaque within the normal caliber abdominal aorta. No retroperitoneal or pelvic lymphadenopathy. There is contrast within the urinary system/bladder. This is likely due to a prior CT examination. No bladder wall thickening. Mild right-sided hydronephrosis, unchanged. This extends to the level of mid right ureter is likely due to compression from the distended duodenum. Multiple left peripelvic renal cysts are again noted. A 9 mm calcified disc protrusion at L2-L3 again noted resulting in moderate to severe central canal narrowing. This is similar to the prior study. IMPRESSION: 1. Interval progression of the high-grade proximal small bowel obstruction at the level the proximal jejunum where there is focal thickening of the jejunum resulting in severe distention of the duodenum. This is concerning for a small bowel mass at this location. A stricture or adhesion could also have a similar appearance. 2. Mild right hydronephrosis, unchanged. This is likely due to compression of t he mid right ureter from the severely distended duodenum. 3. Mild rectal wall thickening with adjacent fat stranding. This is consistent with a nonspecific proctitis. 4. The remaining loops of large and small bowel are fluid-filled and normal in caliber. This could be due to the proximal small bowel obstruction or a superimposed gastroenteritis.
--- NOTE | 2022-10-10 10:50 | Gastrointestinal Consultation ---
Date of Consultation October 10, 2022 Assessment & Plan (1) GI bleed: (2) SBO (small bowel obstruction): (3) Abnormal CT scan, gastrointestinal tract: Plan General surgery contacted our service to determine if there would be a role for a push enteroscopy, however ER did also discuss this with Dr. Terrell and the small bowel could not be further traversed during EGD in July due to duodenal abnormalities. Furthermore, patient's family is desiring no aggressive intervention. At this point, I would continue Pantoprazole 40 mg BID, attempt to keep the INR better controlled moving forward, and did discuss with patient's hospitalist the possibility of palliative care involvement. Supervising Physician Co-Signing Physician Notes I saw the patient and agree with the findings as documented by STEFAN Arias History of Present Illness Reason for Consultation: chronic sbo, possible mass, gib Attending Physician: Kelley Garrett, History of Present Illness Patient is a 62 yo female with PMH of CAD, CKD, anemia, HTN, developmental delay, and recent findings of duodenal abnormality and concerns for SMA syndrome. The patient was brought from [facility] with reports of a GI bleed. Reportedly she was noted to have hematemesis. H/H 8.1/24.7. She is prescribed Protonix 40 mg BID as an outpatient. CT report from this admission shows: IMPRESSION: 1. Interval progression of the high-grade proximal small bowel obstruction at the level the proximal jejunum where there is focal thickening of the jejunum resulting in severe distention of the duodenum. This is concerning for a small bowel mass at this location. A stricture or adhesion could also have a similar appearance. 2. Mild right hydronephrosis, unchanged. This is likely due to compression of the mid right ureter from the severely distended duodenum. 3. Mild rectal wall thickening with adjacent fat stranding. This is consistent with a nonspecific proctitis. 4. The remaining loops of large and small bowel are fluid-filled and normal in caliber. This could be due to the proximal small bowel obstruction or a superimposed gastroenteritis. In July 2022, she underwent an EGD for further evaluation of hematemesis reported by prison staff. The EGD indicated esophagitis and incredibly significant duodenal dilation was noted. A CT was obtained after that EGD and there was concern for SMA syndrome. The patient was referred to vascular surgery however family/POA did not want to pursue this and chose to continue with a conservative approach. She has a history of an abnormal coagulation profile. She follows with heme/onc for this. INR 4.1 today. She has been given FFP prior to procedures in the past. Elizabeth is resting comfortable in bed during my visit. She notes she has no abdominal pain, no further vomiting, or any acute concerns at present. Allergies Allergy/AdvReac Type Severity Reaction Status Date / Time No Known Allergies Allergy NONE Verified 10/09/22 17:35 Home Medications Medication Instructions Recorded Confirmed Type acetaminophen 325 mg tablet 650 mg PO Q6 PRN PAIN--LEFT HIP 12/24/21 10/09/22 History (Tylenol) atorvastatin 40 mg tablet 40 mg PO QAM 12/24/21 10/09/22 History calcium carbonate 200 mg calcium 500 mg PO QAM 12/24/21 10/09/22 History (500 mg) chewable tablet (Calcium Antacid) carvedilol 6.25 mg tablet 6.25 mg PO BID 12/24/21 10/09/22 History cholecalciferol (vitamin D3) 125 62.5 mcg PO QAM 12/24/21 10/09/22 History mcg (5,000 unit) tablet (Vitamin D3) food supplemt, lactose-reduced 1 ea PO TID PRN IF EAT 25% OR LESS 12/24/21 10/09/22 History (Ensure oral liquid) OF EACH MEAL furosemide 20 mg tablet 20 mg PO QAM 12/24/21 10/09/22 History loperamide 2 mg capsule 2 mg PO QID PRN Diarrhea 12/24/21 10/09/22 History ondansetron HCl 4 mg tablet 4 mg PO Q6 PRN Nausea 12/24/21 10/09/22 History oxybutynin chloride 5 mg tablet 5 mg PO TID 12/24/21 10/09/22 History bupropion HCl 300 mg 24 hr tablet, 300 mg PO QAM 06/04/22 10/09/22 History extended release cyanocobalamin (vitamin B-12) 1,000 mcg PO QAM 07/31/22 10/09/22 History 1,000 mcg tablet (Vitamin B-12) pantoprazole 40 mg tablet,delayed 40 mg PO BID 07/31/22 10/09/22 History release sucralfate 100 mg/mL oral 10 ml PO ACHS #400 mL 07/31/22 10/09/22 Rx suspension (Carafate) B-complex with vitamin C 1 tab PO QAM 10/09/22 10/09/22 History diclofenac sodium 1 % topical gel 2 g EXT TID 10/09/22 10/09/22 History (Voltaren Arthritis Pain) mirtazapine 30 mg tablet 30 mg PO HS 10/09/22 10/09/22 History Patient History Medical History 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 oncology records CAD (coronary artery disease) NSTEMI s/p MARYBETH to LAD 10/2008 Chronic RCA occlusion with adequate collaterals Chronic anemia R/t chronic renal disease per [facility] oncology records, stable CKD (chronic kidney disease), stage III Coffee ground emesis x 1 coffee ground and 1 dark brown emesis- week of 07/21/22 Hypertension Ischemic cardiomyopathy Compensated, functional class 2 per 04/[address] [facility] cardiology visit Lives in senior facility Resident of [facility] Mental disability also has impaired short term memory; sister Laverne has POA Surgical History History of cardiac cath 2008 > stent 2018 > known proximal RCA occlusion with left to right collaterals, medical management recommended No significant past surgical history Family History Other Medical history non-contributory Social History Smoking Status: Never smoker Hx Alcohol Use: No Hx Substance Use: No Preferred Language: Arabic Communication Ability: Effective Communication Ability Comment: mental disability 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 Feels Safe at Home: Yes Safety Concerns: Feels Safe At This Time Assistive Devices: Walker Review of Systems Constitutional: no fever Respiratory: no cough Cardiovascular: no chest pain Gastrointestinal: no abdominal pain and no nausea Physical Exam Constitutional: well developed Cardiovascular: Rate/Rhythm: regular rate Gastrointestinal (Abdomen): normal bowel sounds, soft, nontender, no hepatosplenomegaly Psychiatric: Orientation: alert Results & Data Vital Signs (Past 12 Hours) Vital Signs Temp Pulse Pulse Pulse Resp BP BP 10/10/22 07:43 36.7 C 80 18 146/65 H 10/10/22 03:06 36.7 C 79 18 153/57 H 10/10/22 01:25 77 10/10/22 00:57 10/10/22 00:57 36.4 C L 88 18 158/60 H 10/10/22 00:53 36.4 C L 88 18 158/60 H 10/09/22 23:30 82 17 129/58 L 10/09/22 23:47 10/09/22 23:00 79 13 145/65 H Pulse Ox O2 Del Method 10/10/22 07:43 99 Room Air 10/10/22 03:06 99 Room Air 10/10/22 01:25 10/10/22 00:57 Room Air 10/10/22 00:57 99 Room Air 10/10/22 00:53 99 Room Air 10/09/22 23:30 100 Room Air 10/09/22 23:47 Room Air 10/09/22 23:00 99 Room Air PG Care Time/CCT Total # of Minutes Spent Total Time Spent with Patient: Total time spent is greater than 50% in coordination of care (as documented) at patient's floor/unit and/or counseling patient: Coding Level of Care Code 01394 IN/OBS CONSULT LVL 3,45M Diagnoses GI bleed K92.2 SBO (small bowel obstruction) K56.[address] scan, gastrointestinal tract R93.3
[2022-10-10] MEDS: POTASSIUM CHLORIDE / WTR 10 MEQ/100 ML PLCT IV SCH ×2 (12:01→13:23)
--- NOTE | 2022-10-10 12:07 | Palliative Care Consultation ---
Date of Consultation October 10, 2022 Assessment & Plan (1) Abdominal pain, acute, generalized: secondary to SBO + mass. see ACP discussion below (2) Weakness generalized: worsening over past 1-2 years. (3) Declining performance status: (4) Palliative care by specialist: Met with pt family/Sister Lana Hyman MD; she is a pediatrics hospitalist in [place]. I provided overview of Palliative Medicine, a subspecialty that provides specialized medical care for people living with a serious illness by offering a focus on quality of life. Palliative Medicine is often conflated with hospice: I advised patient/family that Palliative and hospice can be partners but we are not the same. It is important to understand the difference so that we may be informed, and not afraid. Palliative Medicine works to improve QOL through reduction of symptom burden/more control over their illness, for both the patient and family. Palliative medicine clinicians are board certified, specially-trained and another member of the patient's medical care team. We often provide an extra layer of support because our care is based on the needs of the patient, not the prognosis; as such, it's appropriate at any age/advancing stage of a serious illness and can be provided along with curative treatment. Palliative Medicine clinicians are also trained in advanced communication methodologies, to facilitate complex discussions about advanced illness planning, which are needed to help assure that the treatment choices match the patient's goals, aka delivering Goal Concordant care. Finally, we discussed that hospice is a visiting nurse service that focuses on care de livered at the very end of life for patients with terminal illness, with life expectancy less than 6 month. (5) Discussion about advance care planning held with family member: Dr Hyman and I spoke for approx 40min. We reviewed that all chronic/progressive disease has a declining trajectory over time where facets of patient self-identity and independence are lost. Every acute event leads to a further decline, resulting- many times, in a new baseline. Advised that the greatest priority is to determine what matters most to pt, then family and to develop a plan of care that is aligned with those priorities.Advance illness planning conversations are conducted to review goals and expectations, support shared decision-making, and engage in disease specific advance care planning. This type of advance care planning is sometimes referred to as 'preparedness planning. It is used to review the risks and benefits of offered therapy, elicit and deepen understanding of the underlying illness and therapeutic options, ensure adequate psychosocial support, address existential concerns and coping, and engage in end-of-life planning. Preparedness planning is not meant to replace informed consent discussions. Palliative medicine plays a role in the process of deepening a patients understanding of this specific medical intervention and ensuring this treatment aligns with their goals of care remains a central tenet of the planning conversation. Dr. Hyman and I reviewed options for care moving forward and she agreed for a transition to comfort care, code status is DNR/DNI and plan for return to the [facility] with hospice. As a family they do not want work up or aggressive care for the SBO or the bowel mass. They acknowledge she has been steadily declining and would not tolerate aggressive interventions including surgery. Dr Hyman is aware surgery did not recc intervention here and noted if they desire this as a family, pt will need to be transferred to a higher level of care given overall risks. Family in agreement they do not want any aggressive care, they want focus on comfort and QOL, bringing pt back to her [facility] where she has a familiar team of caregivers. I suggested we see how Elizabeth does through weekend on comfort care. For now continue gentle IV fluid hydration for comfort and low dose Lasix IV prn ordered at Dr Hyman's request. CM to assist with hospice plans. Sister Laverne will be here Thursday Dr Hyman and Laverne MUST BE NOTIFIED for any chnage in pt condition so they can make arrangements to come to bedside if needed. Plan ACP discussion as noted above code is DNR/DNI Comfort care plan established, orders written For this weekend please continue gentle hydration and meds as tolerated, family would like to see if conservative care helps her in any way but if she is hungry they would like her to be allowed PO for pleasure/comfort as tolerated. Return to [facility] with hospice, CM to assist I have updated primary team. Orders written TS 85min Thank you for allowing us to participate in the ongoing care of this patient. Please don't hesitate to call or page with any additional concerns. Dr. Lilibeth Schmidt DNP Director, Palliative Care History of Present Illness Reason for Consultation: goals of care, family doesn't want further intervention Attending Physician: Kelley Garrett, DO History of Present Illness 62 year-old female with intellectual disability who presented to ER from [facility] due to rectal bleeding. She has history of GI bleed and work-up in July with endoscopy and CT scan showing SBO and distended duodenum however this was seen on prior CT scan in june of 2021 in which she was referred to vascular surgery at [facility] for possible SMA syndrome and she did not undergo further work-up or evaluation at that time. Her abdomen is soft, nondistended, nontender. CTAP of interval progression of high-grade SBO at proximal jejunum, possibly due to a bowel mass. PMH: CAD, CKD, Anemia, HTN, cognitive impairment/intellectual disability CT on admission reported: 1. Interval progression of the high-grade proximal small bowel obstruction at the level the proximal jejunum where there is focal thickening of the jejunum resulting in severe distention of the duodenum. This is concerning for a small bowel mass at this location. A stricture or adhesion could also have a similar appearance. 2. Mild right hydronephrosis, unchanged. This is likely due to compression of the mid right ureter from the severely distended duodenum. 3. Mild rectal wall thickening with adjacent fat stranding. This is consistent with a nonspecific proctitis. 4. The remaining loops of large and small bowel are fluid-filled and normal in caliber. This could be due to the proximal small bowel obstruction or a superimposed gastroenteritis. July 2022 EGD for hematemesis reported by skilled nursing staff --> esophagitis and "incredibly significant duodenal dilation was noted.: CT after that EGD: ++concern for SMA syndrome. The patient was referred to vascular surgery however family/POA did not want to pursue this and chose to continue with a conservative approach. Family wishes to not pursue aggressive treatment or diagnostic testing for the CT scan findings. ED team had lengthy d/w pty sister. Dr Hyman and after discussion, "Dr. Hyman states that they want the patient to be as comfortable as possible." Palliative medicine has been consulted to assist with "goals of care" Of note, patient is listed as full code at the time of this consult. Allergies Allergy/AdvReac Type Severity Reaction Status Date / Time No Known Allergies Allergy NONE Verified 10/09/22 17:35 Home Medications Medication Instructions Recorded Confirmed Type acetaminophen 325 mg tablet 650 mg PO Q6 PRN PAIN--LEFT HIP 12/24/21 10/09/22 Hi story (Tylenol) atorvastatin 40 mg tablet 40 mg PO QAM 12/24/21 10/09/22 History calcium carbonate 200 mg calcium 500 mg PO QAM 12/24/21 10/09/22 History (500 mg) chewable tablet (Calcium Antacid) carvedilol 6.25 mg tablet 6.25 mg PO BID 12/24/21 10/09/22 History cholecalciferol (vitamin D3) 125 62.5 mcg PO QAM 12/24/21 10/09/22 History mcg (5,000 unit) tablet (Vitamin D3) food supplemt, lactose-reduced 1 ea PO TID PRN IF EAT 25% OR LESS 12/24/21 10/09/22 History (Ensure oral liquid) OF EACH MEAL furosemide 20 mg tablet 20 mg PO QAM 12/24/21 10/09/22 History loperamide 2 mg capsule 2 mg PO QID PRN Diarrhea 12/24/21 10/09/22 History ondansetron HCl 4 mg tablet 4 mg PO Q6 PRN Nausea 12/24/21 10/09/22 History oxybutynin chloride 5 mg tablet 5 mg PO TID 12/24/21 10/09/22 History bupropion HCl 300 mg 24 hr tablet, 300 mg PO QAM 06/04/22 10/09/22 History extended release cyanocobalamin (vitamin B-12) 1,000 mcg PO QAM 07/31/22 10/09/22 History 1,000 mcg tablet (Vitamin B-12) pantoprazole 40 mg tablet,delayed 40 mg PO BID 07/31/22 10/09/22 History release sucralfate 100 mg/mL oral 10 ml PO ACHS #400 mL 07/31/22 10/09/22 Rx suspension (Carafate) B-complex with vitamin C 1 tab PO QAM 10/09/22 10/09/22 History diclofenac sodium 1 % topical gel 2 g EXT TID 10/09/22 10/09/22 History (Voltaren Arthritis Pain) mirtazapine 30 mg tablet 30 mg PO HS 10/09/22 10/09/22 History Patient History Medical History 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 per [facility] oncology records CAD (coronary artery disease) NSTEMI s/p MARYBETH to [facility] 10/2008 Chronic RCA occlusion with adequate collaterals Chronic anemia R/t chronic renal disease per [facility] oncology records, stable CKD (chronic kidney disease), stage III Coffee ground emesis x 1 coffee ground and 1 dark brown emesis- week of 07/21/22 Hypertension Ischemic cardiomyopathy Compensated, functional class 2 per 04/2022 [facility] cardiology visit Lives in senior facility Resident of [facility] Mental disability also has impaired short term memory; sister Laverne has POA Surgical History History of cardiac cath 2008 > stent 2018 > known proximal RCA occlusion with left to right collaterals, medical management recommended No significant past surgical history Family History Other Medical history non-contributory Social History Smoking Status: Never smoker Hx Alcohol Use: No Hx Substance Use: No Preferred Language: Belarusian Communication Ability: Effective Communication Ability Comment: mental disability Appetizer Packer Required: No Beliefs That Will Affect Care: None marital status: Current Living Situation: Personal Care Facility Current Living Situation Comment: resident at [facility] Feels Safe at Home: Yes Safety Concerns: Feels Safe At This Time Assistive Devices: Walker Review of Systems Review of Systems: All systems reviewed & are unremarkable except as noted in Subjective and Unobtainable due to cognitive status Physical Exam Physical Exam: resting in bed NAD no JVD resp effort WAL, no dyspnea or use of accessory muscles abdomen soft, no guarding, no grimacing w/exam skin pale/warm alert but cannot provide HPI, cognitive impairment noted. Results & Data Vital Signs (Past 12 Hours) Vital Signs Temp Pulse Pulse Pulse Resp BP Pulse Ox 10/10/22 11:43 36.5 C 78 18 138/55 L 99 10/10/22 08:00 10/10/22 08:00 88 10/10/22 07:43 36.7 C 80 18 146/65 H 99 10/10/22 03:06 36.7 C 79 18 153/57 H 99 10/10/22 01:25 77 10/10/22 00:57 10/10/22 00:57 36.4 C L 88 18 158/60 H 99 10/10/22 00:53 36.4 C L 88 18 158/60 H 99 O2 Del Method 10/10/22 11:43 Room Air 10/10/22 08:00 Room Air 10/10/22 08:00 10/10/22 07:43 Room Air 10/10/22 03:06 Room Air 10/10/22 01:25 10/10/22 00:57 Room Air 10/10/22 00:57 Room Air 10/10/22 00:53 Room Air Laboratory Results data reviewed/see HPI Diagnostic Findings data reviewed/see HPI PG Care Time/CCT Total # of Minutes Spent Total Time Spent: 85 Total Time Spent with Patient: Total time spent is greater than 50% in coordination of care (as documented) at patient's floor/unit and/or counseling patient: 20min chart review/complex and reviewed OSH data 15min with pt 40 min with ACP discussion/sister Dr Lana Hyman MD 10 min care coordination/communic with teams Advanced Care Planning 11353 Advanced Care Planning 30 Min 66066 Advanced Care Planning Additional 30 [place] [address] IN/OBS CONSULT LVL 5,80M Patient Type New History Comprehensive Exam Detailed Medical Decision Making High Complexity Diagnoses Abdominal pain, acute, generalized R10.84 Weakness generalized R53.1 Declining performance status R53.81 Palliative care by specialist Z51.5 Discussion about advance care planning held with family member Z71.0 Additional Codes Advanced Care Planning - 52791 Advanced Care Planning 30 Min: 01576 Advanced Care Planning 30 Min ([id number]) Advanced Care Planning - 86132 Advanced Care Planning Additional 30 Min: 48171 Advanced Care Planning Additional 30 Min ([id number])
[2022-10-10] MEDS ORDERED: haloperidoL 1 MG TAB PO PRN (12:46)
[2022-10-10] MEDS ORDERED: HYDROmorphone INJ 0.5 MG/0.5 ML SYR IV PRN (12:46)
[2022-10-10] MEDS ORDERED: LORazepam 2 MG/1 ML VIAL IV PRN (12:46)
[2022-10-10] MEDS ORDERED: GLYCOPYRROLATE 0.2 MG/ML VIAL IV PRN (12:46)
[2022-10-10] MEDS ORDERED: FUROSEMIDE INJ 20 MG/2 ML VIAL IV PRN (12:58)
[2022-10-10] MEDS ORDERED: PROCHLORPERAZINE 5 MG in SYRINGE 4 ML IV ONE (21:45)
[2022-10-11] MEDS: ONDANSETRON INJ 2 MG/ML 2 ML VIAL IV SCH ×4 (01:53→19:21)
[2022-10-11] MEDS: DICLOFENAC SOD 1% GEL 100 GM TUBE EXT SCH ×3 (05:51→17:42)
[2022-10-11 06:33] LABS: INR 1.2 (0.9-1.1); Prothrombin Time 13.3 Seconds (9.0-12.0)
[2022-10-11] MEDS: oxyBUTYnin chloride 5 MG TAB PO SCH ×3 (07:48→19:21)
[2022-10-11] MEDS: buPROPion XL 300 MG TABCR PO SCH (08:39)
[2022-10-11] MEDS: PANTOprazole 40 MG in SYRINGE 0 ML IV SCH ×2 (08:39→19:21)
[2022-10-11] MEDS ORDERED: ACETAMINOPHEN 500 MG TAB PO PRN (09:26)
[2022-10-11] MEDS ORDERED: HYDROmorphone INJ 0.5 MG/0.5 ML SYR IV PRN (09:27)
--- NOTE | 2022-10-11 11:43 | Hospitalist Progress Note ---
Date of Service October 11, 2022 Assessment & Plan (1) SBO (small bowel obstruction): Plan: -Presented for bloody BMs, with evidence on CTAP of interval progression of high-grade SBO at proximal jejunum, with possibility of small bowel mass noted -Per family, they do not wish to have aggressive workup or treatment of said issue, after discussion with family and Palliative Care consult, patient was made comfort care, case discussed with Lilibeth Schmidt -PRN medications for pain, anxiety, agitation to continue, Tylenol added -Plan for discharge to the [facility] with hospice when able, likely unable to take back to facility until Thursday at earliest (2) Small bowel mass: Plan: -As above. Family does not wish to have aggressive management or workup at this time (3) GI bleed: Plan: -Bloody BMs noted by the [facility]. Patient with history of esophagitis which could be source of bleeding. Small bowel with possible mass is other possible source. -Protonix 40mg IV BID (4) Elevated INR: Plan: -Patient with chronically elevated INR for which she follows with Hematol ogy/Oncology. She has received FFP transfusions in the past. Report of bloody bowel movements by the [facility] -INR up to 4.1 this admission, no further checks (5) Intellectual disability: Plan: Noted. Frequent orientation (6) CKD (chronic kidney disease), stage III: Plan: -URBAN on CKD III, Cr was 1.45 on admission now 1.18 with gentle IVF, resolved -Avoid nephrotoxic agents (7) Hypokalemia: Plan: K 2.9, received KCl 40meq PO, patient received partial infusion of K Riders but was made comfort care, no further lab draws Mg repletion as below (8) Hypomagnesemia: Plan: Mg 1.0, received Mg Sulfate 3g IV, now comfort care Plan Plan for discharge home when [facility] can take, medically stable for back to home with hospice as of 10/10/22 Admission and Anticipated Discharge Date Admission Date: October 09, 2022 Subjective With some abdominal pain and nausea overnight with the Dilaudid, symptoms relieved with Tylenol this morning and denies pain on my interview. No chest pain, SOB, nausea this morning. Physical Exam Constitutional: WD/WN, vitals as above comfortable appearing, no increased WOB Skin: no rashes, warm and dry Psychiatric: A+Ox3, euthymic affect Results & Data Results & Data Vital Signs (Past 12 Hours) Vital Signs Temp Pulse Resp BP Pulse Ox O2 Del Method 10/11/22 07:23 36.7 C 85 18 145/65 H 100 Room Air PG Care Time/CCT Total # of Minutes Spent Total Time Spent with Patient: Total time spent is greater than 50% in coordination of care (as documented) at patient's floor/unit and/or counseling patient: Coding Level of Care Code 41897 SUB INP/OBS CARE 03/26MIN Diagnoses SBO (small bowel obstruction) K56.609 Small bowel mass K63.89 GI bleed K92.2 Elevated INR R79.1 Intellectual disability F79 CKD (chronic kidney disease), stage III N18.30 Hypokalemia E87.6 Hypomagnesemia E83.42
[2022-10-11] MEDS: MIRTAZAPINE TAB 15 MG TAB PO SCH (19:21)
[2022-10-12] MEDS: ONDANSETRON INJ 2 MG/ML 2 ML VIAL IV SCH ×4 (03:26→22:59)
[2022-10-12] MEDS: DICLOFENAC SOD 1% GEL 100 GM TUBE EXT SCH ×3 (06:55→16:06)
--- NOTE | 2022-10-12 07:39 | Hospitalist Progress Note ---
Date of Service October 12, 2022 Assessment & Plan (1) SBO (small bowel obstruction): Plan: -Presented for bloody BMs, with evidence on CTAP of interval progression of high-grade SBO at proximal jejunum, with possibility of small bowel mass noted -Per family, they do not wish to have aggressive workup or treatment of said issue, after discussion with family and Palliative Care consult, patient was made comfort care, case discussed with Lilibeth Schmidt -PRN medications for pain, anxiety, agitation to continue; had nausea with opiates, therefore Tylenol added -Plan for discharge to the [facility] with hospice when able, likely unable to take back to facility until Thursday at earliest (2) Small bowel mass: Plan: -As above. Family does not wish to have aggressive management or workup at this time (3) GI bleed: Plan: -Bloody BMs noted by the [facility]. Patient with history of esophagitis which could be source of bleeding. Small bowel with possible mass is other possible source. -Protonix 40mg PO BID (4) Elevated INR: Plan: -Patient with chronically elevated INR for which she follows with Hematology/Oncology. She has received FFP transfusions in the past. Report of bloody bowel movements by the [facility] -INR up to 4.1 this admission, no further checks (5) Intellectual disability: Plan: Noted. Frequent orientation (6) CKD (chronic kidney disease), stage III: Plan: -URBAN on CKD III, Cr was 1.45 on admission now 1.18 with gentle IVF, resolved -Avoid nephrotoxic agents (7) Hypokalemia: Plan: K 2.9, received KCl 40meq PO, patient received partial infusion of K Riders but was made comfort care, no further lab draws Mg repletion as below (8) Hypomagnesemia: Plan: Mg 1.0, received Mg Sulfate 3g IV, now comfort care Plan Plan for discharge home when [facility] can take, medically stable for back to home with hospice as of 10/10/22 Admission and Anticipated Discharge Date Admission Date: October 09, 2022 Subjective No acute events overnight, today Merilee denies abdominal pain, nausea, vomiting. Physical Exam Constitutional: WD/WN, vitals as above comfortable appearing, no increased WOB Gastrointestinal (Abdomen): abdomen nondistended Skin: no rashes, warm and dry Psychiatric: A+Ox3, euthymic affect Results & Data Results & Data Vital Signs (Past 12 Hours) Vital Signs Temp Pulse Resp BP Pulse Ox O2 Del Method 10/12/22 07:33 37.0 C 93 H 18 126/76 95 Room Air PG Care Time/CCT Total # of Minutes Spent Total Time Spent with Patient: Total time spent is greater than 50% in coordination of care (as documented) at patient's floor/unit and/or counseling patient: Coding Level of Care Code 13641 SUB INP/OBS CARE 03/26MIN Diagnoses SBO (small bowel obstruction) K56.609 Small bowel mass K63.89 GI bleed K92.2 Elevated INR R79.1 Intellectual disability F79 CKD (chronic kidney disease), stage III N18.30 Hypokalemia E87.6 Hypomagnesemia E83.42
[2022-10-12] MEDS: PANTOprazole 40 MG in SYRINGE 0 ML IV SCH (08:05)
[2022-10-12] MEDS: buPROPion XL 300 MG TABCR PO SCH (08:05)
[2022-10-12] MEDS: oxyBUTYnin chloride 5 MG TAB PO SCH ×3 (08:05→22:56)
[2022-10-12] MEDS: PANTOprazole 40 MG TAB PO SCH (22:55)
[2022-10-12] MEDS: MIRTAZAPINE TAB 15 MG TAB PO SCH (22:55)
[2022-10-13] MEDS: ONDANSETRON INJ 2 MG/ML 2 ML VIAL IV SCH ×3 (01:16→13:13)
[2022-10-13] MEDS: DICLOFENAC SOD 1% GEL 100 GM TUBE EXT SCH ×2 (06:19→11:56)
[2022-10-13] MEDS: oxyBUTYnin chloride 5 MG TAB PO SCH ×2 (08:03→13:13)
[2022-10-13] MEDS: buPROPion XL 300 MG TABCR PO SCH (08:03)
[2022-10-13] MEDS: PANTOprazole 40 MG TAB PO SCH (08:03)
--- NOTE | 2022-10-13 11:18 | Discharge Summary ---
Discharge Summary Date of Service October 13, 2022 Admission HPI Per Admitting Provider Elizabeth Méndez is a 62yo female with history of CAD, CKD, Anemia, HTN and developmental delay presenting from [facility] with report of GI bleed. Patient is a poor historian. History obtained largely through discussion with ER staff and chart review. Patient reports no abdominal pain, distention or bloating. No nausea or vomiting. She reports having a bowel movement prior to arrival but is uncertain if there was blood in the stool. She has no complaints at this time. She reports that she has not been passing flatus lately. Patient with known anemia and abnormal coagulation profile. She follows with Hematology/Oncology for this. Anemia thought to be secondary to anemia of chronic disease in chronic renal failure. She has been treated with Procrit in the past. Last PT=20.3 and INR=1.9 on 09/01/22. She has been transfused with FFP in the past prior to procedures. Patient has had several months of abdominal pain. She has been seen by GI in the past with report of coffee ground emesis. She had an EGD performed on 08/19/22 which revealed mildly severe reflux esophagitis with no bleeding. Small hiatal hernia and duodenal deformity. A CT scan was recommended for additional workup of the noted duodenal deformity. She had the CT performed on 09/01/22 which revealed evidence of a proximal SBO with a markedly dilated duodenum. Of note, similar findings seen on CT imaging from June 2021. She was evaluated by GI at that time and recommended Vascular Surgery evaluation for possible SMA syndrome. She did not undergo this evaluation. Patient presents today with report of bloody stool. CT findings as below. Dr. Ball had lengthy discussion with patient's sister, Lana Sanchez who is a physician. Please see his documentation for details of that conversation. In brief, family does not want aggressive workup or treatment for possible mass/stricture noted on imaging. Admission Exam Per Admitting Provider General: patient resting comfortably, NAD, non-toxic in appearance, oriented to self and location Skin: warm, dry, intact, no rashes or lesions HEENT: NC/AT, PERRL, EOMI, anicteric sclera, conjunctiva without injection, external ear normal to inspection and nontender, nares patent, slightly dry mucus membranes, dentition intact, no oropharyngeal lesions, neck supple, trachea midline, no LAD, no thyromegaly, no JVD Heart: +S1/S2, regular, no m/r/g Lungs: equal air entry bilaterally, no rales/rhonchi/wheezes Abd: +BS normoactive, soft, NT/ND, no masses/organomegaly/ascites, no nausea Ext: warm, 2+ pulses in UE/LE bilaterally, no clubbing/cyanosis or edema Neuro: nonfocal, patient AA&O to self and location, speech intact, no facial droop, moving all extremities on command with equal strength 5/5 Principal Dx & Hospital Course #1 = Principal Diagnosis (1) SBO (small bowel obstruction): -Presented for bloody BMs, with evidence on CTAP of interval progression of high-grade SBO at proximal jejunum, with possibility of small bowel mass noted -Per family, they do not wish to have aggressive workup or treatment of said issue, after discussion with family and Palliative Care consult, patient was made comfort care, case discussed with Lilibeth Schmidt -PRN medications for pain, anxiety, agitation to continue; had nausea with opiates, therefore prioritize Tylenol -Plan for discharge to [facility] with hospice today (2) Small bowel mass: -As above. Family does not wish to have aggressive management or workup at this time (3) GI bleed: -Bloody BMs noted by [facility]. Patient with history of esophagitis which could be source of bleeding. Small bowel with possible mass is other possible source. -Can continue Protonix 40mg PO BID for GERD comfort (4) Elevated INR: -Patient with chronically elevated INR for which she follows with Hematology/Oncology. She has received FFP transfusions in the past. Report of bloody bowel movements by [facility] -INR up to 4.1 this admission, no further checks (5) CKD (chronic kidney disease), stage III: -URBAN on CKD III, Cr was 1.45 on admission down to 1.18 with gentle IVF, resolved -Avoid nephrotoxic agents (6) Hypokalemia: K 2.9, received KCl 40meq PO, patient received partial infusion of K Riders but was made comfort care, no further lab draws Mg repletion as below (7) Hypomagnesemia: Mg 1.0, received Mg Sulfate 3g IV, now comfort care Plan Plan for discharge home to [facility] on hospice today Discharge Exam Constitutional WD/WN, vitals as above Psychiatric A+Ox3, euthymic affect Updated Medication List Medication Instructions Recorded Confirmed Type acetaminophen 325 mg tablet 650 mg PO Q6 PRN PAIN--LEFT HIP 12/24/21 10/09/22 History (Tylenol) loperamide 2 mg capsule 2 mg PO QID PRN Diarrhea 12/24/21 10/09/22 History ondansetron HCl 4 mg tablet 4 mg PO Q6 PRN Nausea 12/24/21 10/09/22 History bupropion HCl 300 mg 24 hr tablet, 300 mg PO QAM 06/04/22 10/09/22 History extended release pantoprazole 40 mg tablet,delayed 40 mg PO BID 07/31/22 10/09/22 History release diclofenac sodium 1 % topical gel 2 g EXT TID 10/09/22 10/09/22 History (Voltaren Arthritis Pain) mirtazapine 30 mg tablet 30 mg PO HS 10/09/22 10/09/22 History haloperidol 1 mg tablet 1 mg PO Q4H PRN agitation #10 tabs 10/13/22 Rx lorazepam 0.5 mg tablet 0.5 mg PO TID PRN anxiety #10 tabs 10/13/22 Rx morphine 10 mg/5 mL oral solution 5 mg (2.5 mL) PO Q6H PRN severe 10/13/22 Rx pain (scale score 7-10) #100 mL Hospital Stay Data Consultations 10/09/22 20:02 Consult Gastroenterology Routine Consult General Surgery Routine ED Decision to Admit Stat 10/10/22 11:10 Consult Palliative Care Routine Diagnostic Imagining Performed 10/09/22 17:07 CT abd pelvis IV con only Stat CT head/brain wo con Stat Pending Results Patient Have Any Pending Studies at Discharge: No Discharge Instructions Given to Patient (Per Discharging Provider) SBO (small bowel obstruction): -Presented for bloody BMs, with evidence on CTAP of interval progression of high-grade SBO at proximal jejunum, with possibility of small bowel mass noted -Per family, they do not wish to have aggressive workup or treatment of said issue, after discussion with family and Palliative Care consult, patient was made comfort care, case discussed with Lilibeth Schmidt -PRN medications for pain, anxiety, agitation to continue (Haldol, Ativan, Roxanol); had nausea with opiates, therefore Tylenol added and has had no pain since Small bowel mass: -As above. Family does not wish to have aggressive management or workup at this time GI bleed: -Bloody BMs noted by the [facility]. Patient with history of esophagitis which could be source of bleeding. Small bowel with possible mass is other possible source. -Protonix 40mg PO BID Elevated INR: -Patient with chronically elevated INR for which she follows with Hematology/Oncology. She has received FFP transfusions in the past. Report of bloody bowel movements by [facility] -INR up to 4.1 this admission, no further checks Intellectual disability: Noted. Frequent orientation CKD (chronic kidney disease), stage III: -URBAN on CKD III, Cr was 1.45 on admission now 1.18 with gentle IVF, resolved -Avoid nephrotoxic agents Hypokalemia: K 2.9, received KCl 40meq PO, patient received partial infusion of K Riders but was made comfort care, no further lab drawn Hypomagnesemia: Mg 1.0, received Mg Sulfate 3g IV, now comfort care Total Time Total Time Spent Total Time Spent (In Minutes): 30 min Coding Level of Care Code 95384 IN/OBS DISCH 30 MIN/LESS Diagnoses SBO (small bowel obstruction) K56.609 Small bowel mass K63.89 GI bleed K92.2 Elevated INR R79.1 CKD (chronic kidney disease), stage III N18.30 Hypokalemia E87.6 Hypomagnesemia E83.42
--- NOTE | 2022-10-15 06:08 | Coding Query ---
CODING QUERY To promote full compliance with coding requirements relating to patient care, provider participation is requested in all cases of certified phlebotomist uncertainty. Please assist us with the question(s) below: Coding Question(s): Pt adm with SBO, melena & duodenal mass. July 2022 EGD attempted, could not proceed due to mass (duodenal) . No further workup of the mass/melena as per family. Pt on comfort measures. Please document, if known or suspected the etiology of the duodenal mass. Thanks for your help! Natanael Varela [facility] Physician's Response(s): Unknown etiology of mass. Masses are most commonly malignant, however do not have any data to support that in this patient. Principal Diagnosis: "that condition established after study, to be chiefly responsible for occasioning the admission of the patient to the hospital for care." Co-Existing Principal Diagnosis: "when two or more diagnoses equally meet the criteria for principal diagnosis as determined by the circumstances of admission, diagnostic work up, and/or therapy provided, and the Alphabetic Index, Tabular List, or another coding guideline does not provide sequencing direction, any one of the diagnoses may be sequenced first." "When the physician has documented what appears to be a current diagnosis in the body of the record, but has not included the diagnosis in the final diagnostic statement, the physician should be asked whether the diagnosis should be added." (Source Coding Clinic 2 QTR90. p3-4) [facility]
== END 2022-10-13 13:23 | disposition hospice, home (50) | DRG 394 ==
LOC: ED 14:25 → 2N 20:21 → SUATTDRO 20:21 → 2N 23:47 → 3E 10-10 19:47